=== PATIENT | female | born 1950 | race Caucasian/White ===

== ENCOUNTER 2018-01-15 08:26 | Emergency (ER) | payer MEDICARE, BC ==
[~2018-01-15] VITALS: Ht 177.8 cm; Wt 79.4 kg
[~2018-01-15 08:26] MED LIST: ALBUTEROL0.63 MG/3 HHN; ANORO ELLIPTA1 EACH INH; CLARITIN10 M2 ORAL; LEVOTHYROXINE150 MCG ORAL; LORAZEPAM2 MG ORAL; LOSARTAN POTASS25 MG ORAL; OMEPRAZOLE40 M1 ORAL; PERFOROMIS20 MCG/2 M IH; TRAZODONE HCL150 MG ORAL; TRIAMTERENE-HC1 EAC7 ORAL; VERAMYST10 GM NS
[2018-01-15 08:44] VITALS: BP 127/68
--- NOTE | 2018-01-15 09:09 | Emergency Room Report ---
History of Present Illness General Chief Complaint: Laceration Source: Patient Present Illness HPI Patient presents with complaints of pain to the right hand Patient reports that she cut the palm of the hand yesterday with a knife fall she was cutting This happened at approximately 1:00 in the morning Patient felt that the cut was too deep and presents this morning for evaluation Denies any wrist pain denies any other trauma Denies any heavy bleeding or lightheadedness Allergies: Coded Allergies: No Known Allergies (Verified , 04/13/08) Patient History Past Medical History: see triage record Pertinent Family History: none Last Menstrual Period: na Reviewed Nursing Documentation: PMH: Agreed; PSxH: Agreed Nursing Documentation-PMH Past Medical History: No History, Except For Hx Cardiac Problems: Yes Hx Hypertension: Yes Hx COPD: Yes Hx Cancer: No Hx Gastrointestinal Problems: Yes - hyst Hx Neurological Problems: No Review of Systems All Other Systems: negative except mentioned in HPI Physical Exam Vital Signs Date Time Temp Pulse Resp B/P (MAP) Pulse Ox O2 Delivery O2 Flow Rate FiO2 01/15/18 08:33 98.5 70 16 127/68 98 Room Air 98.4 Sp02 EP Interpretation: reviewed, normal General Appearance: well appearing, no apparent distress Head: normocephalic, atraumatic Eyes: bilateral eye PERRL, bilateral eye EOMI ENT: hearing grossly normal, normal pharynx Neck: full range of motion, supple Respiratory: lungs clear, normal breath sounds Cardiovascular #1: regular rate, rhythm Gastrointestinal: normal bowel sounds, non tender Musculoskeletal: other - Appropriate thumb approximation was all digits well able to flex all digits and extend able to flex the hand and extend Neurologic: alert, oriented x3, responsive - Sensory is intact Skin: other - Approximately 1 cm laceration involving the hyperthenar eminence on the right palmar aspect Lymphatic: no adenopathy Procedures Laceration/Wound Repair Laceration/Wound Repair : Consent: Verbal Wound Location: upper extremity Wound's Depth, Shape: into muscle Wound Length (cm): 1 Wound Explored: clean Irrigated w/ Saline (ccs): 200 Anesthesia: other - LET Wound Debrided: minimal Wound Repaired With: sutures Suture Size/Type: 5:0 Number of Sutures: 3 Layer Closure?: No Deep Layer Suture Size/Type: 5:0 Sterile Dressing Applied?: No Patient Tolerated: Well Complications: None Medical Decision Making Diagnostic Impression: Primary Impression: Laceration ER Course Given the patient's history and findings she was provided with tetanus shot the area was further cleansed and irrigated L ET was applied dorsally refer to the suture repair for the full specifics Given the full separation and the location 3 sutures were applied with good approximation however did not want to make the area too tightly closed as there is some delayed closure Patient provided with antibiotics here and has follow-up with her physician on Thursday Last Vital Signs Date Time Temp Pulse Resp B/P (MAP) Pulse Ox O2 Delivery O2 Flow Rate FiO2 01/15/18 08:44 98.4 70 16 127/68 98 Room Air 98.4 Status: improved Disposition: HOME, SELF-CARE Condition: Improved Scripts Cephalexin* (KEFLEX*) 500 Mg Capsule 500 MG ORAL EVERY 8 HOURS for 5 Days, CAP Prov: Gerda Raymundo DO 01/15/18 Referrals: NON PHYSICIAN (PCP) Additional Instructions: Patient is provided with the discharge instructions notified to follow up with primary doctor in the next 2-3 days otherwise return to the er with any worsening symptoms. Please note that this report is being documented using [employer] technology. This can lead to erroneous entry secondary to incorrect interpretation by the dictating instrument. Gerda Raymundo DO Jan 15, 2018 09:09
[2018-01-15] MEDS ORDERED: Tetanus/Diptheria/Pertussis Vaccine 0.5ml Syr IM ONE (09:15)
[2018-01-15] MEDS ORDERED: LET 3ml Soln TOPIC ONE (09:15)
[2018-01-15] MEDS ORDERED: Bacitracin Oint UD TOPIC ONE ×2 (09:55→10:00)
[2018-01-15] MEDS ORDERED: Cephalexin 500mg cap ORAL ONE (10:00)
[2018-01-15] MEDS ORDERED: CEPHALEXIN500 MG ORAL (10:31)
[2018-01-15 10:36] VITALS: BP 127/68
== END 2018-01-15 10:37 | disposition home or self-care (01) ==
LOC: EMR 08:45
DX: S61.411A Laceration without foreign body of right hand, initial encounter (principal); W26.0XXA Contact with knife, initial encounter; Y93.89 Activity, other specified; Y92.89 Other specified places as the place of occurrence of the external cause; I10 Essential (primary) hypertension; J44.9 Chronic obstructive pulmonary disease, unspecified; Z23 Encounter for immunization; Z86.79 Personal history of other diseases of the circulatory system
CPT/HCPCS: 90471; 90715; 99283

== ENCOUNTER 2019-04-29 23:42 | Inpatient (IN) | payer MEDICARE, BC ==
[~2019-04-29] VITALS: Ht 177.8 cm; Wt 97.1 kg
[~2019-04-29 23:42] MED LIST changes: +CEPHALEXIN500 MG ORAL
[2019-04-29 23:45] VITALS: BP 171/86
[2019-04-29] MEDS ORDERED: Solu-MEDROL 125mg Inj IVP ONE (23:45)
[2019-04-29] MEDS ORDERED: Ipratropium 0.02% Inh Soln 2.5ml UD HHN ONE (23:45)
[2019-04-29] MEDS ORDERED: Sodium Chloride 2,600 ML IVLG ONE (23:45)
[2019-04-29] MEDS ORDERED: Acetaminophen 500mg (ES) tab ORAL ONE (23:45)
[2019-04-29] MEDS ORDERED: Albuterol ud Inhalation HHN ONE (23:45)
--- NOTE | 2019-04-29 23:52 | Emergency Room Report ---
History of Present Illness General Chief Complaint: Flu Like Symptoms Source: Patient Present Illness HPI This is a 69-year-old female with history of high blood pressure and COPD. She was a former smoker. She presents with complaint of fever and cough and nausea and vomiting. Onset today. Often she says she felt very weak with high fever. Have chills. She coughed up some green phlegm. Also felt nauseous. No diarrhea. Worse with exertion. Better with rest. Denies any chest pain. [place] whole body pain. Allergies: Coded Allergies: No Known Allergies (Verified , 04/13/08) Patient History Past Medical History: see triage record, old chart reviewed, HTN, COPD Past Surgical History: other Pertinent Family History: none Social History: Denies: smoking - History of Now: No Immunizations: other Reviewed Nursing Documentation: PMH: Agreed; PSxH: Agreed Nursing Documentation-PMH Hx Cardiac Problems: Yes Hx Hypertension: Yes Hx COPD: Yes Hx Cancer: No Hx Gastrointestinal Problems: Yes - hyst Hx Neurological Problems: No Review of Systems Constitutional: Reports: chills, fever, malaise Eye: Denies: eye pain, blurred vision ENT: Denies: ear pain, nose congestion, throat swelling Respiratory: Reports: cough, shortness of breath, sputum Cardiovascular: Denies: chest pain, palpitations Gastrointestinal: Reports: nausea, vomiting; Denies: abdominal pain, diarrhea Musculoskeletal: Reports: back pain, muscle pain; Denies: joint pain Skin: Denies: rash Neurological: Denies: headache, numbness Endocrine: Denies: increased thirst, increased urine Hematologic/Lymphatic: Denies: easy bruising All Other Systems: negative except mentioned in HPI Physical Exam Vital Signs Date Time Temp Pulse Resp B/P (MAP) Pulse Ox O2 Delivery O2 Flow Rate FiO2 04/29/19 23:29 100.0 103 16 171/86 (114) 96 Room Air Vitals with fever and high blood pressure Sp02 EP Interpretation: reviewed, normal General Appearance: alert, other - Ill-appearing Head: normocephalic, atraumatic Eyes: bilateral eye PERRL, bilateral eye EOMI ENT: hearing grossly normal, normal pharynx Neck: full range of motion, supple, no meningismus Respiratory: chest non-tender, decreased breath sounds, accessory muscle use, crackles Cardiovascular #1: regular rate, rhythm, no murmur Gastrointestinal: normal bowel sounds, non tender, no mass, no organomegaly, no bruit, non-distended Musculoskeletal: back normal, normal range of motion Neurologic: motor strength/tone normal Psychiatric: mood/affect normal Procedures Critical Care Time Critical Care Time Critical care is mandated in this patient who presented with sepsis from pneumonia. Patient require my urgent intervention to attenuate the risks of metabolic collapse which may lead to cardiovascular collapse and . Critical care time is 35 minutes excluding any reportable procedure. Critical care time included evaluation, multiple reevaluation, looking at old charts, interpreting laboratory and diagnostic data, discussing case with patient and family and consultants, and charting. Medical Decision Making Diagnostic Impression: Primary Impression: Sepsis Qualified Codes: A41.9 - Sepsis, unspecified organism Additional Impressions: Community acquired bacterial pneumonia Influenza-like symptoms COPD with exacerbation ER Course Patient presents with fever and coughing. She does have a left lobe infiltrate. Even though influenza test is negative will cover with Tamiflu. No evidence of ACS, PE, dissection during review. Will admit versus transfer based on insurance. Patient felt better after breathing treatment. I discussed the case with Dr. Price who will admit. EKG Diagnostic Results Rate: normal Rhythm: NSR ST Segments: no acute changes Rhythm Strip Diag. Results EP Interpretation: yes Rate: 100 Rhythm: NSR, no PVC's, no ectopy Chest X-Ray Diagnostic Results Chest X-Ray Diagnostic Results : Chest X-Ray Ordered: Yes # of Views/Limited/Complete: 1 View Indication: Shortness of Breath EP Interpretation: Yes Interpretation: no effusion, no pneumothorax, other - PRUDENCE infiltrate Impression: Other - PRUDENCE infiltrate Electronically Signed by: Dinesh Blackburn MD Last Vital Signs Date Time Temp Pulse Resp B/P (MAP) Pulse Ox O2 Delivery O2 Flow Rate FiO2 04/29/19 23:29 100.0 103 16 171/86 (114) 96 Room Air Status: improved Disposition: ADMITTED INPATIENT Condition: Serious Dinesh Blackburn MD Apr 29, 2019 23:52
[2019-04-30 00:12] LABS: HEMATOCRIT 38.9 % (37.0-47.0); HEMOGLOBIN 12.9 G/DL (12.0-16.0); MEAN CORPUSCULAR VOLUME 78 FL (80-99); PLATELET COUNT 299 K/UL (150-450); RED BLOOD COUNT 4.98 M/UL (4.20-5.40); RED CELL DISTRIBUTION WIDTH 14.1 % (11.6-14.8)
[2019-04-30 00:15] LABS: WHITE BLOOD COUNT 22.7 K/UL (4.8-10.8)
[2019-04-30 00:26] LABS: ANION GAP 11 mmol/L (5-15); BLOOD UREA NITROGEN 29 mg/dL (7-18); CALCIUM 8.6 MG/DL (8.5-10.1); CARBON DIOXIDE 27 MMOL/L (21-32); CHLORIDE 96 MMOL/L (98-107); CREATININE 1.4 MG/DL (0.55-1.30); POTASSIUM 3.9 MMOL/L (3.5-5.1); SODIUM 134 MMOL/L (136-145)
[2019-04-30 00:31] LABS: ALANINE AMINOTRANSFERASE 30 U/L (12-78); ALBUMIN 3.2 G/DL (3.4-5.0); ALBUMIN/GLOBULIN RATIO 0.8 (1.0-2.7); ALKALINE PHOSPHATASE 90 U/L (46-116); ASPARTATE AMINO TRANSFERASE 18 U/L (15-37); BILIRUBIN,TOTAL 0.6 MG/DL (0.2-1.0)
[2019-04-30] MEDS ORDERED: Piperacillin/Tazobactam 3.375 GM in NS 110 ML IVPB ONE (00:45)
[2019-04-30] MEDS ORDERED: Oseltamivir 75mg cap ORAL ONE (01:00)
[2019-04-30 01:10] LABS: APPEARANCE,URINE CLEAR; BILIRUBIN, URINE NEGATIVE (NEGATIVE); COLOR,URINE PALE YELLOW; GLUCOSE, URINE (UA) NEGATIVE (NEGATIVE); KETONES,URINE NEGATIVE (NEGATIVE); LEUKOCYTE ESTERASE ,URINE 1+ (NEGATIVE); NITRITE,URINE NEGATIVE (NEGATIVE); PH,URINE 7 (4.5-8.0); PROTEIN,URINE 3+ (NEGATIVE); UROBILINOGEN,URINE NORMAL MG/DL (0.0-1.0)
--- NOTE | 2019-04-30 01:22 | Diagnostic Imaging Report ---
EXAM: XR Chest, 1 View CLINICAL HISTORY: SOB TECHNIQUE: Frontal view of the chest. COMPARISON: No relevant prior studies available. IMPRESSION: Increased left upper lobe opacity, possibly edema or infectious process. Normal heart size. No pleural effusion. Bibasilar atelectasis versus aspiration.
[2019-04-30] MEDS ORDERED: Albuterol ud Inhalation HHN ONE (01:30)
[2019-04-30 01:35] VITALS: BP 124/72
--- NOTE | 2019-04-30 01:43 | Emergency Room Report ---
Sepsis Event Note Evaluation Current Stage of Sepsis: Sepsis Possible Source: Pulmonary Focused Exam Allergies: Coded Allergies: No Known Allergies (Verified , 04/13/08) Date Exam Occurred: Apr 30, 2019 Time Exam Occurred: 01:42 Laboratory Studies Laboratory Tests Test 04/29/19 23:50 White Blood Count 22.7 K/UL (4.8-10.8) *H Red Blood Count 4.98 M/UL (4.20-5.40) Hemoglobin 12.9 G/DL (12.0-16.0) Hematocrit 38.9 % (37.0-47.0) Mean Corpuscular Volume 78 FL (80-99) L Mean Corpuscular Hemoglobin 25.8 PG (27.0-31.0) L Mean Corpuscular Hemoglobin Concent 33.1 G/DL (32.0-36.0) Red Cell Distribution Width 14.1 % (11.6-14.8) Platelet Count 299 K/UL (150-450) Mean Platelet Volume 4.9 FL (6.5-10.1) L Neutrophils (%) (Auto) % (45.0-75.0) Lymphocytes (%) (Auto) % (20.0-45.0) Monocytes (%) (Auto) % (1.0-10.0) Eosinophils (%) (Auto) % (0.0-3.0) Basophils (%) (Auto) % (0.0-2.0) Differential Total Cells Counted 100 Neutrophils % (Manual) 77 % (45-75) H Lymphocytes % (Manual) 12 % (20-45) L Monocytes % (Manual) 10 % (1-10) Eosinophils % (Manual) 0 % (0-3) Basophils % (Manual) 0 % (0-2) Promyelocytes % 1 % (0-0) H Band Neutrophils 0 % (0-8) Platelet Estimate Adequate Platelet Morphology Normal Urine Color Pale yellow Urine Appearance Clear Urine pH 7 (4.5-8.0) Urine Specific [place] 1.005 (1.005-1.035) Urine Protein 3+ (NEGATIVE) H Urine Glucose (UA) Negative (NEGATIVE) Urine Ketones Negative (NEGATIVE) Urine Blood 1+ (NEGATIVE) H Urine Nitrite Negative (NEGATIVE) Urine Bilirubin Negative (NEGATIVE) Urine Urobilinogen Normal MG/DL (0.0-1.0) Urine Leukocyte Esterase 1+ (NEGATIVE) H Urine RBC 0-2 /HPF (0 - 2) Urine WBC 2-4 /HPF (0 - 2) Urine Squamous Epithelial Cells Few /LPF (NONE/OCC) Urine Bacteria Few /HPF (NONE) Sodium Level 134 MMOL/L (136-145) L Potassium Level 3.9 MMOL/L (3.5-5.1) Chloride Level 96 MMOL/L (98-107) L Carbon Dioxide Level 27 MMOL/L (21-32) Anion Gap 11 mmol/L (5-15) Blood Urea Nitrogen 29 mg/dL (7-18) H Creatinine 1.4 MG/DL (0.55-1.30) H Estimat Glomerular Filtration Rate 37.2 mL/min (>60) Glucose Level 180 MG/DL (74-106) H Lactic Acid Level 1.10 mmol/L (0.4-2.0) Calcium Level 8.6 MG/DL (8.5-10.1) Total Bilirubin 0.6 MG/DL (0.2-1.0) Aspartate Amino Transf (AST/SGOT) 18 U/L (15-37) Alanine Aminotransferase (ALT/SGPT) 30 U/L (12-78) Alkaline Phosphatase 90 U/L (46-116) Troponin I 0.000 ng/mL (0.000-0.056) Total Protein 7.4 G/DL (6.4-8.2) Albumin 3.2 G/DL (3.4-5.0) L Globulin 4.2 g/dL Albumin/Globulin Ratio 0.8 (1.0-2.7) L Vital Signs Last 24 Hour Vital Signs Date Time Temp Pulse Resp B/P (MAP) Pulse Ox O2 Delivery O2 Flow Rate FiO2 04/29/19 23:58 109 20 99 Room Air 21 106 16 96 04/29/19 23:29 100.0 103 16 171/86 (114) 96 Room Air Respiratory Exam: Crackles Cardiovascular Exam: RRR, S1 Capillary Refill: Less Than 2 Seconds Peripheral Pulse: Strong Pulse Location: Radial Skin Exam: Normal Turgor Dinesh Blackburn MD Apr 30, 2019 01:43
[2019-04-30 03:04] VITALS: BP 100/64
[2019-04-30] MEDS: TraZODone 100mg tab ORAL SCH ×2 (04:24→20:42)
[2019-04-30] MEDS ORDERED: Albuterol 90mcg Inhaler 8gm INH PRN (05:30)
[2019-04-30] MEDS ORDERED: Azithromycin 250mg tab ORAL SCH (06:00)
[2019-04-30] MEDS: cefTRIAXone 1 GM in D5W 55 ML IVPB SCH (06:28)
[2019-04-30] MEDS: Albuterol ud Inhalation HHN SCH ×3 (07:00→14:55)
[2019-04-30 08:00] VITALS: BP 121/54
[2019-04-30] MEDS: Triamterene/Hctz 37.5/25 cap ORAL SCH (09:48)
[2019-04-30] MEDS: Losartan 25mg tab ORAL SCH (09:48)
[2019-04-30] MEDS: metFORMIN 500mg tab ORAL SCH ×2 (09:48→17:25)
[2019-04-30] MEDS: Heparin 5000 units/ml inj SUBQ SCH ×2 (09:50→20:48)
[2019-04-30] MEDS: Meloxicam 15 MG TAB ORAL SCH (10:48)
[2019-04-30] MEDS: QVAR 80mcg Inh - 8.7gm INH SCH (11:22)
[2019-04-30] MEDS: Flonase Nasal Inhaler 16gm NASAL SCH (11:25)
[2019-04-30 12:00] VITALS: BP 141/75
--- NOTE | 2019-04-30 12:00 | Pulmonology Progress Note ---
Assessment/Plan Assessment/Plan Pulmonary Consultation HPI Patient is a 69-year-old female with Past Medical History of Hypertension and Chronic Obstructive Pulmonary Disease. She was a former smoker. Admitted with Pneumonia, had complaints of fever and cough and nausea and vomiting, malaise, general body pain. Noted chills, cough with green phlegm. Also felt nauseous. No diarrhea. Denies any chest pain. Had whole body pain. Allergies: No Known Allergies Past Medical History: Hypertension, HHD, Chronic Obstructive Pulmonary Disease Past Surgical History: Hysterectomy Pertinent Family History: none Social History: Previous smoking history All Other Systems: negative except mentioned in HPI Physical Exam Vital Signs Noted Date Time Temp Pulse Resp B/P (MAP) Pulse Ox O2 Delivery O2 Flow Rate FiO2 04/29/19 23:29 100.0 103 16 171/86 (114) 96 Room Air General Appearance: alert, no distress Head: normocephalic, atraumatic Eyes: bilateral eye PERRL, bilateral eye EOMI ENT: hearing grossly normal, normal pharynx Neck: full range of motion, supple, no meningismus Respiratory: chest non-tender, decreased breath sounds, occasional rhonchi, few crackles Cardiovascular: regular rate, rhythm, no murmur, HS1, HS2, RRR Gastrointestinal: normal bowel sounds, non tender, no mass, no organomegaly, softt, non-distended Musculoskeletal: normal strength, no wasting Neurologic: motor strength/tone normal Psychiatric: mood/affect normal Impression: Pneumonia Sepsis Influenza-like symptoms Chronic Obstructive Pulmonary Disease with exacerbation Mild hyponatremia Hypertension, HHD Plan - IV Antibiotics - HHN - O2 PRN - Solumedrol - PPX - Monitor Labs - SUPERINTENDENT PIPELINES Medications - Await cultures EKG: Rate: normal Rhythm: NSR ST Segments: no acute changes Chest X-Ray: no effusion, no pneumothorax, other - PRUDENCE infiltrate, bibasal atelectasis Subjective ROS Limited/Unobtainable: No Allergies: Coded Allergies: No Known Allergies (Verified , 04/13/08) Objective Last 24 Hour Vital Signs Date Time Temp Pulse Resp B/P (MAP) Pulse Ox O2 Delivery O2 Flow Rate FiO2 04/30/19 11:34 90 20 94 Nasal Cannula 2.0 95 04/30/19 11:34 94 22 94 Nasal Cannula 2.0 28 04/30/19 11:31 96 20 100 Nasal Cannula 2.0 28 90 18 95 1/4/20 11:29 90 18 95 Nasal Cannula 2.0 28 04/30/19 09:48 121/54 04/30/19 09:00 Nasal Cannula 2.0 04/30/19 08:00 98.2 85 20 121/54 (76) 98 04/30/19 08:00 86 04/30/19 05:11 Nasal Cannula 3.0 04/30/19 04:00 91 04/30/19 03:04 98.2 100 22 100/64 (76) 95 04/30/19 03:04 100 04/30/19 02:45 99.4 78 18 124/72 95 Nasal Cannula 2.0 21 04/30/19 01:45 101 20 100 Nasal Cannula 4.0 36 102 20 98 04/30/19 01:35 99.4 78 18 124/72 95 Nasal Cannula 2.0 04/30/19 00:39 99.1 04/29/19 23:58 109 20 99 Room Air 21 106 16 96 04/29/19 23:45 103 16 Room Air 04/29/19 23:45 100.0 98 16 171/86 96 Room Air 04/29/19 23:29 100.0 103 16 171/86 (114) 96 Room Air Intake and Output 04/29/19 04/30/19 19:00 07:00 Intake Total 200 ml Balance 200 ml Intake Oral 200 ml # Voids 1 Microbiology Date/Time Source Procedure Growth Status 04/29/19 23:50 Nasal Nares - Final Complete 04/29/19 23:50 Nasal Nares - Final Complete Laboratory Tests 04/29/19 23:50: White Blood Count 22.7*H, Red Blood Count 4.98, Hemoglobin 12.9, Hematocrit 38.9 , Mean Corpuscular Volume 78L, Mean Corpuscular Hemoglobin 25.8L, Mean Corpuscular Hemoglobin Concent 33.1, Red Cell Distribution Width 14.1, Platelet Count 299, Mean Platelet Volume 4.9L, Neutrophils (%) (Auto) , Lymphocytes (%) ( Auto) , Monocytes (%) (Auto) , Eosinophils (%) (Auto) , Basophils (%) (Auto) , Differential Total Cells Counted 100, Neutrophils % (Manual) 77H, Lymphocytes % (Manual) 12L, Monocytes % (Manual) 10, Eosinophils % (Manual) 0, Basophils % ( Manual) 0, Promyelocytes % 1H, Band Neutrophils 0, Platelet Estimate Adequate, Platelet Morphology Normal, Urine Color Pale yellow, Urine Appearance Clear, Urine pH 7, Urine Specific [place] 1.005, Urine Protein 3+H, Urine Glucose (UA) Negative, Urine Ketones Negative, Urine Blood 1+H, Urine Nitrite Negative, Urine Bilirubin Negative, Urine Urobilinogen Normal, Urine Leukocyte Esterase 1+ H, Urine RBC 0-2, Urine WBC 2-4, Urine Squamous Epithelial Cells Few, Urine Bacteria Few, Sodium Level 134L, Potassium Level 3.9, Chloride Level 96L, Carbon Dioxide Level 27, Anion Gap 11, Blood Urea Nitrogen 29H, Creatinine 1.4H , Estimat Glomerular Filtration Rate 37.2, Glucose Level 180H, Lactic Acid Level 1.10, Calcium Level 8.6, Total Bilirubin 0.6, Aspartate Amino Transf (AST/ SGOT) 18, Alanine Aminotransferase (ALT/SGPT) 30, Alkaline Phosphatase 90, Troponin I 0.000, Total Protein 7.4, Albumin 3.2L, Globulin 4.2, Albumin/ Globulin Ratio 0.8L Current Medications Medications (Trade) Dose Ordered Sig/[place] Route PRN Reason Start Time Stop Time Status Last Admin Dose Admin Albuterol Sulfate (Proventil MDI) 1 puff Q4H PRN INH SHORTNESS OF BREATH 04/30/19 05:30 05/30/19 05:29 Albuterol Sulfate (Proventil) 1.25 mg Q4HRT HHN 04/30/19 07:00 05/05/19 06:59 04/30/19 11:28 Azithromycin (Zithromax) 250 mg DAILY ORAL 05/01/19 09:00 05/04/19 09:01 Beclomethasone Dipropionate (Qvar 80) 2 puff TWICE A DAY INH 04/30/19 09:00 05/30/19 08:59 04/30/19 11:22 Ceftriaxone Sodium 1 gm/ Dextrose 55 ml @ 110 mls/hr Q24H IVPB 04/30/19 06:00 05/07/19 05:59 04/30/19 06:28 Fluticasone Propionate (Flonase) 1 spray TWICE A DAY NASAL 04/30/19 09:00 05/30/19 08:59 04/30/19 11:25 Heparin Sodium (Porcine) (Heparin 5000 units/ml) 5,000 units EVERY 12 HOURS SUBQ 04/30/19 09:00 05/30/19 08:59 04/30/19 09:50 Levothyroxine Sodium (Synthroid) 150 mcg DAILY@0630 ORAL 04/30/19 06:30 05/30/19 06:29 04/30/19 06:29 Losartan Potassium (Cozaar) 25 mg DAILY ORAL 04/30/19 09:00 05/30/19 08:59 04/30/19 09:48 Meloxicam (Mobic) 15 mg DAILY ORAL 04/30/19 09:00 05/30/19 08:59 04/30/19 10:48 Metformin HCl (Glucophage) 500 mg BIDPC ORAL 04/30/19 09:00 05/30/19 08:59 04/30/19 09:48 Mirtazapine (Remeron) 30 mg BEDTIME ORAL 04/30/19 03:45 05/30/19 03:44 04/30/19 04:23 Non-Formulary Medication (Non-Formulary Med) 1 ea DAILY ORAL 04/30/19 09:00 05/30/19 08:59 UNV Non-Formulary Medication (Non-Formulary Med) 1 ea DAILY ORAL 04/30/19 09:00 05/30/19 08:59 UNV Non-Formulary Medication (Non-Formulary Med) 1 ea DAILY ORAL 04/30/19 09:00 05/30/19 08:59 UNV Non-Formulary Medication (Non-Formulary Med) 1 ea DAILY ORAL 04/30/19 09:00 05/30/19 08:59 UNV Non-Formulary Medication (Non-Formulary Med) 1 ea DAILY ORAL 04/30/19 09:00 05/30/19 08:59 UNV Non-Formulary Medication (Non-Formulary Med) 1 ea DAILY ORAL 04/30/19 09:00 05/30/19 08:59 UNV Non-Formulary Medication (Non-Formulary Med) 1 ea DAILY ORAL 04/30/19 09:00 05/30/19 08:59 UNV Non-Formulary Medication (Non-Formulary Med) 1 ea DAILY ORAL 04/30/19 09:00 05/30/19 08:59 UNV Non-Formulary Medication (Non-Formulary Med) 1 ea DAILY ORAL 04/30/19 09:00 05/30/19 08:59 UNV Non-Formulary Medication (Non-Formulary Med) 1 ea DAILY ORAL 04/30/19 09:00 05/30/19 08:59 UNV Pantoprazole (Protonix) 40 mg DAILY ORAL 04/30/19 09:00 05/30/19 08:59 04/30/19 09:48 Trazodone HCl (Desyrel) 600 mg BEDTIME ORAL 04/30/19 03:45 05/30/19 03:44 04/30/19 04:24 Triamterene/HCTZ (Dyazide) 1 cap DAILY ORAL 04/30/19 09:00 05/30/19 08:59 04/30/19 09:48 Darvin Austin MD Apr 30, 2019 12:00
[2019-04-30] MEDS ORDERED: Acetaminophen 650 MG SUPP RECTAL PRN (12:45)
[2019-04-30] MEDS ORDERED: Milk of Magnesia 30ml Ud ORAL PRN (12:45)
[2019-04-30] MEDS: Solu-MEDROL 40mg Inj IVP SCH ×2 (15:40→20:44)
[2019-04-30 16:00] VITALS: BP 105/60
[2019-04-30 20:00] VITALS: BP 129/68
[2019-04-30] MEDS: Albuterol/Ipratropium 3ml neb HHN SCH (21:11)
--- NOTE | 2019-04-30 23:15 | History and Physical Report ---
DATE OF ADMISSION: 04/29/2019 CHIEF COMPLAINT/REASON FOR HOSPITALIZATION: The patient is a 69-year-old lady, admitted with cough, shortness of breath, and left upper lobe infiltrate. HISTORY OF PRESENT ILLNESS: The patient has a history of hypertension and COPD, admitted with persistent cough for several days, nonproductive; weakness; dyspnea on exertion; also noted has some urinary incontinence associated with coughing which is new in onset. The patient is a former smoker, quit 8 or 9 years ago. She uses inhalers at home. ALLERGIES: None known. HOME MEDICATIONS: 1. Albuterol inhalation p.r.n. 2. Keflex 500 mg q.i.d. 3. Formoterol inhalation p.r.n. 4. Levothyroxine 150 mcg daily. 5. Lorazepam 2 mg at bedtime. 6. Losartan 25 mg daily. 7. Omeprazole 40 mg daily. 8. Trazodone 150 mg at bedtime. 9. Triamterene hydrochlorothiazide 1 daily. 10. Anoro Ellipta inhaler daily. HABITS: She is a former smoker. No alcohol or drugs. PAST SURGICAL HISTORY: 1. Left total hip replacement. 2. Ankle fracture. 3. Cataracts. SYSTEM REVIEW: HEAD, EYES, EARS, NOSE, AND THROAT: Vision is not good. Hearing is good. ENDOCRINE: History of hypothyroidism, on replacement. No known diabetes. PULMONARY: See above. CARDIAC: No definite angina or [place]. There is some chest tightness associated with her cough and shortness of breath. GASTROINTESTINAL: No gastrointestinal bleeding or ulcers. There is some assisted with the current illness. GENITOURINARY: New onset of incontinence as above. No dysuria. NEUROLOGIC: No CVA, syncope, or seizures. MUSCULOSKELETAL: History of some generalized joint pain. PHYSICAL EXAMINATION: GENERAL: The patient is an alert lady, in no acute distress. BMI 30.7. VITAL SIGNS: Temperature 97.6, pulse 91, respirations 20, and blood pressure 141/75. HEAD EYES, EARS, NOSE, AND THROAT: Sclerae are nonicteric. Ocular motions intact in all directions. Oral mucosa slightly dry. NECK: No adenopathy or thyroid enlargement. LUNGS: Distant breath sounds. Few faint rhonchi. HEART: Rhythm is regular. I hear no murmur. ABDOMEN: Soft without organomegaly or masses. EXTREMITIES: No edema, cyanosis, or clubbing. NEUROLOGIC: She is alert and oriented. Cranial nerves are intact. SKIN: No rashes. PERTINENT LABORATORY DATA: Shows a white count of 22.7, hemoglobin 12.9, and MCV is 78. Sodium 134, potassium 3.9, creatinine 1.4, and glucose 180. Troponin 0. Urinalysis shows 0 to 2 red cells and 2 to 4 white cells per high-power field. The influenza rapid test is negative. IMPRESSION: 1. Pneumonia, left upper lobe. Note that the patient has had Pneumovax and Prevnar 13 prior to this. 2. COPD with exacerbation. 3. Elevated glucose. 4. Urinary incontinence. 5. Hypertension. 6. Osteoarthritis. PLAN: The patient will be given empiric therapy for pneumonia with empiric antibiotics. Nebulizer treatments. For comfort measures, she was given a dose of steroid as well in the emergency room. We will observe her response to these measures. Await for cultures. Thank you so much. Greg Price M.D. DR: MELINDA JOB#: [id number] CC:
[2019-05-01] VITALS: BP 110/60
[2019-05-01] MEDS: Albuterol/Ipratropium 3ml neb HHN SCH ×7 (00:43→23:10)
[2019-05-01] MEDS: QVAR 80mcg Inh - 8.7gm INH SCH ×3 (00:49→21:47)
[2019-05-01] MEDS: Flonase Nasal Inhaler 16gm NASAL SCH ×3 (00:51→23:06)
[2019-05-01 04:00] VITALS: BP 127/63
[2019-05-01] MEDS: cefTRIAXone 1 GM in D5W 55 ML IVPB SCH (05:03)
[2019-05-01] MEDS: Azithromycin 500 MG in D5W 275 ML IV SCH (05:41)
[2019-05-01 08:00] VITALS: BP 147/72
[2019-05-01] MEDS: Solu-MEDROL 40mg Inj IVP SCH (08:08)
[2019-05-01] MEDS: Losartan 25mg tab ORAL SCH (08:09)
[2019-05-01] MEDS: Meloxicam 15 MG TAB ORAL SCH (08:09)
[2019-05-01] MEDS: metFORMIN 500mg tab ORAL SCH ×2 (08:09→17:17)
[2019-05-01] MEDS: Triamterene/Hctz 37.5/25 cap ORAL SCH (08:09)
[2019-05-01] MEDS: Heparin 5000 units/ml inj SUBQ SCH ×2 (08:10→21:01)
[2019-05-01 08:57] LABS: HEMATOCRIT 35.3 % (37.0-47.0); HEMOGLOBIN 11.7 G/DL (12.0-16.0); MEAN CORPUSCULAR VOLUME 80 FL (80-99); PLATELET COUNT 243 K/UL (150-450); RED BLOOD COUNT 4.41 M/UL (4.20-5.40); RED CELL DISTRIBUTION WIDTH 14.1 % (11.6-14.8); WHITE BLOOD COUNT 20.8 K/UL (4.8-10.8)
[2019-05-01] MEDS ORDERED: Azithromycin 250mg tab ORAL SCH (09:00)
[2019-05-01 09:42] LABS: ANION GAP 11 mmol/L (5-15); BLOOD UREA NITROGEN 37 mg/dL (7-18); CALCIUM 8.2 MG/DL (8.5-10.1); CARBON DIOXIDE 24 MMOL/L (21-32); CHLORIDE 98 MMOL/L (98-107); CREATININE 1.8 MG/DL (0.55-1.30); POTASSIUM 3.7 MMOL/L (3.5-5.1); SODIUM 133 MMOL/L (136-145)
--- NOTE | 2019-05-01 09:57 | General Progress Note ---
Assessment/Plan Problem List: (1) Diabetes ICD Codes: E11.9 - Type 2 diabetes mellitus without complications SNOMED: 15337131 (2) COPD (chronic obstructive pulmonary disease) ICD Codes: J44.9 - Chronic obstructive pulmonary disease, unspecified SNOMED: 70429916 (3) Community acquired bacterial pneumonia ICD Codes: J15.9 - Unspecified bacterial pneumonia SNOMED: 938963744, 30977683 (4) Hypertension ICD Codes: I10 - Essential (primary) hypertension SNOMED: 22729909 Assessment/Plan: diabetes from steroids, ss insulin, reduce steroids, continue antibiotics and hhn Subjective Constitutional: Reports: weakness HEENT: Reports: no symptoms Cardiovascular: Reports: no symptoms Respiratory: Reports: cough, shortness of breath, SOB with excertion, wheezing Gastrointestinal/Abdominal: Reports: no symptoms Genitourinary: Reports: incontinence Neurologic/Psychiatric: Reports: weakness Endocrine: Reports: no symptoms Hematologic/Lymphatic: Reports: no symptoms Allergies: Coded Allergies: No Known Allergies (Verified , 04/13/08) Objective Last 24 Hour Vital Signs Date Time Temp Pulse Resp B/P (MAP) Pulse Ox O2 Delivery O2 Flow Rate FiO2 05/01/19 09:22 84 20 95 Nasal Cannula 2.0 28 05/01/19 09:20 84 20 95 Nasal Cannula 2.0 05/01/19 08:09 127/63 05/01/19 08:00 97.7 68 20 147/72 (97) 99 05/01/19 04:00 97.6 90 20 127/63 (84) 97 05/01/19 04:00 94 05/01/19 02:59 86 18 98 Nasal Cannula 2.0 87 18 96 05/01/19 00:51 87 20 95 Nasal Cannula 2.0 05/01/19 00:51 87 20 95 Nasal Cannula 2.0 28 05/01/19 00:43 87 18 96 Nasal Cannula 2.0 28 84 18 96 05/01/19 00:00 97.5 94 20 110/60 (77) 96 05/01/19 00:00 87 05/01/19 00:00 04/30/19 20:27 92 18 96 Nasal Cannula 2.0 28 88 18 95 04/30/19 20:27 88 18 95 Nasal Cannula 2.0 28 04/30/19 20:00 99 04/30/19 20:00 Nasal Cannula 2.0 04/30/19 20:00 98.1 92 20 129/68 (88) 94 04/30/19 16:00 97.3 97 20 105/60 (75) 95 04/30/19 16:00 94 04/30/19 14:55 91 18 97 Nasal Cannula 2.0 28 87 16 93 04/30/19 12:00 91 04/30/19 12:00 97.6 91 20 141/75 (97) 97 04/30/19 11:34 90 20 94 Nasal Cannula 2.0 95 04/30/19 11:34 94 22 94 Nasal Cannula 2.0 28 04/30/19 11:31 96 20 100 Nasal Cannula 2.0 28 90 18 95 Intake and Output 04/30/19 05/01/19 19:00 07:00 Intake Total 330 ml Balance 330 ml IV Total 330 ml # Voids 2 4 Laboratory Tests 05/01/19 07:57: White Blood Count 20.8H, Red Blood Count 4.41, Hemoglobin 11.7L, Hematocrit 35.3L, Mean Corpuscular Volume 80, Mean Corpuscular Hemoglobin 26.6L, Mean Corpuscular Hemoglobin Concent 33.2, Red Cell Distribution Width 14.1, Platelet Count 243, Mean Platelet Volume 4.8L, Neutrophils (%) (Auto) , Lymphocytes (%) ( Auto) , Monocytes (%) (Auto) , Eosinophils (%) (Auto) , Basophils (%) (Auto) , Differential Total Cells Counted 100, Neutrophils % (Manual) 90H, Lymphocytes % (Manual) 3L, Monocytes % (Manual) 7, Eosinophils % (Manual) 0, Basophils % ( Manual) 0, Band Neutrophils 0, Platelet Estimate Adequate, Platelet Morphology Normal, Red Blood Cell Morphology Normal 05/01/19 08:32: Sodium Level 133L, Potassium Level 3.7, Chloride Level 98, Carbon Dioxide Level 24, Anion Gap 11, Blood Urea Nitrogen 37H, Creatinine 1.8H, Estimat Glomerular Filtration Rate 27.8, Glucose Level 391#H, Calcium Level 8.2L Height (Feet): 5 Height (Inches): 10.00 Weight (Pounds): 214 General Appearance: alert, obese EENT: normal ENT inspection Neck: non-tender, normal alignment Cardiovascular: normal rate, regular rhythm Respiratory/Chest: rhonchi - bilaterally Abdomen: non tender, soft Edema: no edema noted Arm (L), no edema noted Arm (R), no edema noted Leg (L), no edema noted Leg (R), no edema noted Pedal (L), no edema noted Pedal (R), no edema noted 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
[2019-05-01] MEDS ORDERED: Guaifenesin/DM 10ml syrup ORAL PRN (10:00)
[2019-05-01 12:00] VITALS: BP 123/65
[2019-05-01] MEDS: NovoLOG Insulin Flexpen SUBQ SCH ×2 (12:28→17:18)
[2019-05-01] MEDS: Benzonatate 100mg Perles ORAL SCH ×2 (12:28→17:17)
[2019-05-01 16:00] VITALS: BP 131/77
--- NOTE | 2019-05-01 19:55 | Pulmonology Progress Note ---
Assessment/Plan Assessment/Plan Pulmonary Progress Note HPI Patient is a 69-year-old female with Past Medical History of Hypertension and Chronic Obstructive Pulmonary Disease. She was a former smoker. Admitted with Pneumonia, had complaints of fever and cough and nausea and vomiting, malaise, general body pain. Noted chills, cough with green phlegm. Also felt nauseous. No diarrhea. Denies any chest pain. Had whole body pain. Cough and SOB improving Allergies: No Known Allergies Past Medical History: Hypertension, HHD, Chronic Obstructive Pulmonary Disease Past Surgical History: Hysterectomy Pertinent Family History: none Social History: Previous smoking history All Other Systems: negative except mentioned in HPI Physical Exam Vital Signs Noted General Appearance: alert, no distress Head: normocephalic, atraumatic Eyes: bilateral eye PERRL, bilateral eye EOMI ENT: hearing grossly normal, normal pharynx Neck: full range of motion, supple, no meningismus Respiratory: chest non-tender, decreased breath sounds, occasional rhonchi, few crackles Cardiovascular: regular rate, rhythm, no murmur, HS1, HS2, RRR Gastrointestinal: normal bowel sounds, non tender, no mass, no organomegaly, softt, non-distended Musculoskeletal: normal strength, no wasting Neurologic: motor strength/tone normal Psychiatric: mood/affect normal Impression: Pneumonia Sepsis Influenza-like symptoms Chronic Obstructive Pulmonary Disease with exacerbation Mild hyponatremia Hypertension, HHD Plan - IV Antibiotics - HHN - O2 PRN - Solumedrol - PPX - Monitor 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 EKG: Rate: normal Rhythm: NSR ST Segments: no acute changes Chest X-Ray: no effusion, no pneumothorax, other - PRUDENCE infiltrate, bibasal atelectasis Subjective ROS Limited/Unobtainable: No Allergies: Coded Allergies: No Known Allergies (Verified , 04/13/08) Objective Last 24 Hour Vital Signs Date Time Temp Pulse Resp B/P (MAP) Pulse Ox O2 Delivery O2 Flow Rate FiO2 05/01/19 16:00 85 05/01/19 16:00 97.6 81 20 131/77 (95) 96 05/01/19 15:40 90 20 98 Nasal Cannula 2.0 28 95 18 93 05/01/19 12:00 79.7 92 20 123/65 (84) 96 05/01/19 12:00 100 1/5/20 11:52 81 18 98 Nasal Cannula 2.0 28 83 18 98 05/01/19 09:22 84 20 95 Nasal Cannula 2.0 28 05/01/19 09:20 84 20 95 Nasal Cannula 2.0 05/01/19 09:00 Nasal Cannula 2.0 05/01/19 08:09 127/63 05/01/19 08:00 84 05/01/19 08:00 97.7 68 20 147/72 (97) 99 05/01/19 04:00 97.6 90 20 127/63 (84) 97 05/01/19 04:00 94 05/01/19 02:59 86 18 98 Nasal Cannula 2.0 28 87 18 96 05/01/19 00:51 87 20 95 Nasal Cannula 2.0 05/01/19 00:51 87 20 95 Nasal Cannula 2.0 28 05/01/19 00:43 87 18 96 Nasal Cannula 2.0 28 84 18 96 05/01/19 00:00 97.5 94 20 110/60 (77) 96 05/01/19 00:00 87 05/01/19 00:00 04/30/19 20:27 92 18 96 Nasal Cannula 2.0 28 88 18 95 04/30/19 20:27 88 18 95 Nasal Cannula 2.0 28 04/30/19 20:00 99 04/30/19 20:00 Nasal Cannula 2.0 04/30/19 20:00 98.1 92 20 129/68 (88) 94 Intake and Output 04/30/19 05/01/19 19:00 07:00 Intake Total 330 ml Balance 330 ml IV Total 330 ml # Voids 2 4 Microbiology Date/Time Source Procedure Growth Status 04/29/19 23:50 Blood Blood Culture - Preliminary NO GROWTH AFTER 24 HOURS Resulted 04/29/19 23:35 Blood Blood Culture - Preliminary NO GROWTH AFTER 24 HOURS Resulted 04/29/19 23:50 Nasal Nares - Final Complete 04/29/19 23:50 Nasal Nares - Final Complete Laboratory Tests 05/01/19 07:57: White Blood Count 20.8H, Red Blood Count 4.41, Hemoglobin 11.7L, Hematocrit 35.3L, Mean Corpuscular Volume 80, Mean Corpuscular Hemoglobin 26.6L, Mean Corpuscular Hemoglobin Concent 33.2, Red Cell Distribution Width 14.1, Platelet Count 243, Mean Platelet Volume 4.8L, Neutrophils (%) (Auto) , Lymphocytes (%) ( Auto) , Monocytes (%) (Auto) , Eosinophils (%) (Auto) , Basophils (%) (Auto) , Differential Total Cells Counted 100, Neutrophils % (Manual) 90H, Lymphocytes % (Manual) 3L, Monocytes % (Manual) 7, Eosinophils % (Manual) 0, Basophils % ( Manual) 0, Band Neutrophils 0, Platelet Estimate Adequate, Platelet Morphology Normal, Red Blood Cell Morphology Normal 05/01/19 08:32: Sodium Level 133L, Potassium Level 3.7, Chloride Level 98, Carbon Dioxide Level 24, Anion Gap 11, Blood Urea Nitrogen 37H, Creatinine 1.8H, Estimat Glomerular Filtration Rate 27.8, Glucose Level 391#H, Calcium Level 8.2L Current Medications Medications (Trade) Dose Ordered Sig/Wesley Route PRN Reason Start Time Stop Time Status Last Admin Dose Admin Acetaminophen (Tylenol) 650 mg Q4H PRN ORAL Mild Pain/Temp > 100.5 04/30/19 12:45 05/30/19 12:44 Acetaminophen (Tylenol) 650 mg Q4H PRN RECTAL Mild Pain/Temp > 100.5 04/30/19 12:45 05/30/19 12:44 Al Hydroxide/Mg Hydroxide (Mylanta) 30 ml Q2H PRN ORAL HEARTBURN 04/30/19 14:45 05/30/19 14:44 04/30/19 14:50 Albuterol Sulfate (Proventil MDI) 1 puff Q4H PRN INH SHORTNESS OF BREATH 04/30/19 05:30 05/30/19 05:29 Albuterol/ Ipratropium (Albuterol/ Ipratropium) 3 ml Q4HRT HHN 04/30/19 19:00 05/05/19 18:59 05/01/19 15:40 Azithromycin 500 mg/Dextrose 275 ml @ 275 mls/hr Q24HRS IV 05/01/19 06:00 05/07/19 06:59 05/01/19 05:41 Beclomethasone Dipropionate (Qvar 80) 2 puff TWICE A DAY INH 04/30/19 09:00 05/30/19 08:59 05/01/19 09:20 Benzonatate (Tessalon Perles) 200 mg THREE TIMES A DAY ORAL 05/01/19 13:00 05/31/19 12:59 05/01/19 17:17 Ceftriaxone Sodium 1 gm/ Dextrose 55 ml @ 110 mls/hr Q24H IVPB 04/30/19 06:00 05/07/19 05:59 05/01/19 05:03 Dextrose (Dextrose 50%) 25 ml Q30M PRN IV Hypoglycemia 05/01/19 10:00 05/31/19 09:59 Dextrose (Dextrose 50%) 50 ml Q30M PRN IV Hypoglycemia 05/01/19 10:00 05/31/19 09:59 Fluticasone Propionate (Flonase) 1 spray TWICE A DAY NASAL 04/30/19 09:00 05/30/19 08:59 05/01/19 00:51 Guaifenesin/ Dextromethorphan (Robitussin DM Syrup) 10 ml Q4H PRN ORAL For Cough 05/01/19 10:00 05/31/19 09:59 Heparin Sodium (Porcine) (Heparin 5000 units/ml) 5,000 units EVERY 12 HOURS SUBQ 04/30/19 09:00 05/30/19 08:59 05/01/19 08:10 Insulin Aspart (NovoLOG) TIAC SUBQ 05/01/19 11:30 05/31/19 11:29 05/01/19 17:18 Levothyroxine Sodium (Synthroid) 150 mcg DAILY@0630 ORAL 04/30/19 06:30 05/30/19 06:29 05/01/19 05:44 Losartan Potassium (Cozaar) 25 mg DAILY ORAL 04/30/19 09:00 05/30/19 08:59 05/01/19 08:09 Magnesium Hydroxide (Mom) 30 ml DAILYPRN PRN ORAL Constipation 04/30/19 12:45 05/30/19 12:44 04/30/19 20:49 Meloxicam (Mobic) 15 mg DAILY ORAL 04/30/19 09:00 05/30/19 08:59 05/01/19 08:09 Metformin HCl (Glucophage) 500 mg BIDPC ORAL 04/30/19 09:00 05/30/19 08:59 05/01/19 17:17 Methylprednisolone Sodium Succinate (Solu-MEDROL) 20 mg DAILY IVP 05/02/19 09:00 06/01/19 08:59 Mirtazapine (Remeron) 30 mg BEDTIME ORAL 04/30/19 03:45 05/30/19 03:44 04/30/19 20:39 Non-Formulary Medication (Non-Formulary Med) 1 ea DAILY ORAL 04/30/19 09:00 05/30/19 08:59 UNV Non-Formulary Medication (Non-Formulary Med) 1 ea DAILY ORAL 04/30/19 09:00 05/30/19 08:59 UNV Non-Formulary Medication (Non-Formulary Med) 1 ea DAILY ORAL 04/30/19 09:00 05/30/19 08:59 UNV Non-Formulary Medication (Non-Formulary Med) 1 ea DAILY ORAL 04/30/19 09:00 05/30/19 08:59 UNV Non-Formulary Medication (Non-Formulary Med) 1 ea DAILY ORAL 04/30/19 09:00 05/30/19 08:59 UNV Non-Formulary Medication (Non-Formulary Med) 1 ea DAILY ORAL 04/30/19 09:00 05/30/19 08:59 UNV Non-Formulary Medication (Non-Formulary Med) 1 ea DAILY ORAL 04/30/19 09:00 05/30/19 08:59 UNV Non-Formulary Medication (Non-Formulary Med) 1 ea DAILY ORAL 04/30/19 09:00 05/30/19 08:59 UNV Non-Formulary Medication (Non-Formulary Med) 1 ea DAILY ORAL 04/30/19 09:00 05/30/19 08:59 UNV Pantoprazole (Protonix) 40 mg DAILY ORAL 04/30/19 09:00 05/30/19 08:59 05/01/19 08:09 Trazodone HCl (Desyrel) 600 mg BEDTIME ORAL 04/30/19 03:45 05/30/19 03:44 04/30/19 20:42 Darvin Austin MD May 01, 2019 19:55
[2019-05-01 20:00] VITALS: BP 126/61
[2019-05-01] MEDS: TraZODone 100mg tab ORAL SCH (21:00)
[2019-05-02] VITALS: BP 127/62
[2019-05-02] MEDS: Albuterol/Ipratropium 3ml neb HHN SCH ×6 (03:40→22:56)
[2019-05-02 04:00] VITALS: BP 126/80
[2019-05-02] MEDS: Azithromycin 500 MG in D5W 275 ML IV SCH (05:47)
[2019-05-02] MEDS: NovoLOG Insulin Flexpen SUBQ SCH ×3 (05:54→17:36)
[2019-05-02] MEDS: cefTRIAXone 1 GM in D5W 55 ML IVPB SCH (07:05)
[2019-05-02 07:36] LABS: BASOPHILS % (AUTO) 0.3 % (0.0-2.0); HEMATOCRIT 33.7 % (37.0-47.0); HEMOGLOBIN 11.3 G/DL (12.0-16.0); LYMPHOCYTES % (AUTO) 9.8 % (20.0-45.0); MEAN CORPUSCULAR VOLUME 79 FL (80-99); MONOCYTES % (AUTO) 6.8 % (1.0-10.0); NEUTROPHILS % (AUTO) 83.1 % (45.0-75.0); PLATELET COUNT 279 K/UL (150-450); RED BLOOD COUNT 4.27 M/UL (4.20-5.40); WHITE BLOOD COUNT 16.6 K/UL (4.8-10.8)
[2019-05-02 07:42] LABS: ANION GAP 8 mmol/L (5-15); BLOOD UREA NITROGEN 39 mg/dL (7-18); CALCIUM 8.2 MG/DL (8.5-10.1); CARBON DIOXIDE 26 MMOL/L (21-32); CHLORIDE 99 MMOL/L (98-107); CREATININE 1.5 MG/DL (0.55-1.30); SODIUM 133 MMOL/L (136-145)
[2019-05-02 08:00] VITALS: BP 116/66
[2019-05-02] MEDS ORDERED: Solu-MEDROL 40mg Inj IVP SCH ×3 (09:00→18:00)
[2019-05-02] MEDS: Losartan 25mg tab ORAL SCH (09:18)
[2019-05-02] MEDS: Meloxicam 15 MG TAB ORAL SCH (09:19)
[2019-05-02] MEDS: metFORMIN 500mg tab ORAL SCH ×2 (09:19→17:30)
[2019-05-02] MEDS: Benzonatate 100mg Perles ORAL SCH ×3 (09:19→17:31)
[2019-05-02] MEDS: Heparin 5000 units/ml inj SUBQ SCH ×2 (09:20→20:32)
[2019-05-02] MEDS: QVAR 80mcg Inh - 8.7gm INH SCH ×2 (09:29→19:50)
[2019-05-02] MEDS: Flonase Nasal Inhaler 16gm NASAL SCH ×2 (10:09→17:31)
[2019-05-02 12:00] VITALS: BP 148/84
[2019-05-02 16:00] VITALS: BP 152/87
--- NOTE | 2019-05-02 17:23 | General Progress Note ---
Assessment/Plan Problem List: (1) Diabetes ICD Codes: E11.9 - Type 2 diabetes mellitus without complications SNOMED: 04094075 (2) COPD (chronic obstructive pulmonary disease) ICD Codes: J44.9 - Chronic obstructive pulmonary disease, unspecified SNOMED: 54564778 (3) Community acquired bacterial pneumonia ICD Codes: J15.9 - Unspecified bacterial pneumonia SNOMED: 151119758, 88050984 (4) Hypertension ICD Codes: I10 - Essential (primary) hypertension SNOMED: 75979905 Assessment/Plan: diabetes from steroids, ss insulin, reduce steroids, continue antibiotics and hhn increase losartan for bp Subjective Constitutional: Reports: weakness HEENT: Reports: no symptoms Cardiovascular: Reports: no symptoms Respiratory: Reports: cough, SOB with excertion Gastrointestinal/Abdominal: Reports: no symptoms Genitourinary: Reports: no symptoms Neurologic/Psychiatric: Reports: no symptoms Endocrine: Reports: no symptoms Hematologic/Lymphatic: Reports: no symptoms Allergies: Coded Allergies: No Known Allergies (Verified , 04/13/08) Objective Last 24 Hour Vital Signs Date Time Temp Pulse Resp B/P (MAP) Pulse Ox O2 Delivery O2 Flow Rate FiO2 05/02/19 16:00 98.8 96 20 152/87 (108) 98 05/02/19 16:00 88 05/02/19 15:35 79 18 99 Nasal Cannula 2.0 28 77 16 98 05/02/19 12:00 98.1 85 20 148/84 (105) 98 05/02/19 12:00 90 05/02/19 11:21 81 18 99 Room Air 21 82 16 98 05/02/19 09:29 83 18 96 Nasal Cannula 2.0 28 05/02/19 09:29 80 18 96 Nasal Cannula 2.0 05/02/19 09:18 116/66 05/02/19 09:00 Nasal Cannula 2.0 Nasal Cannula 2.0 05/02/19 08:00 100 05/02/19 08:00 98.2 93 20 116/66 (83) 97 05/02/19 07:10 75 18 100 Room Air 21 80 17 98 05/02/19 04:00 97.4 84 18 126/80 (95) 97 05/02/19 04:00 78 05/02/19 03:34 76 20 100 Nasal Cannula 2.0 28 74 18 98 05/02/19 00:00 98.4 84 18 127/62 (83) 96 05/02/19 00:00 87 05/01/19 23:10 76 20 98 Nasal Cannula 2.0 28 72 18 94 05/01/19 21:47 87 20 95 Nasal Cannula 2.0 28 05/01/19 21:47 89 20 95 Nasal Cannula 2.0 05/01/19 21:00 Nasal Cannula 2.0 05/01/19 20:03 89 20 98 Nasal Cannula 2.0 28 88 18 95 05/01/19 20:00 98.5 85 18 126/61 (82) 96 05/01/19 20:00 84 Intake and Output 05/01/19 05/02/19 19:00 07:00 Intake Total 120 ml Balance 120 ml Intake Oral 120 ml # Voids 3 2 Laboratory Tests 05/02/19 06:01: White Blood Count 16.6H, Red Blood Count 4.27, Hemoglobin 11.3L, Hematocrit 33.7L, Mean Corpuscular Volume 79L, Mean Corpuscular Hemoglobin 26.6L, Mean Corpuscular Hemoglobin Concent 33.6, Red Cell Distribution Width 14.0, Platelet Count 279, Mean Platelet Volume 5.1L, Neutrophils (%) (Auto) 83.1H, Lymphocytes (%) (Auto) 9.8L, Monocytes (%) (Auto) 6.8, Eosinophils (%) (Auto) 0.0, Basophils (%) (Auto) 0.3, Sodium Level 133L, Potassium Level 4.0, Chloride Level 99, Carbon Dioxide Level 26, Anion Gap 8, Blood Urea Nitrogen 39H, Creatinine 1.5H, Estimat Glomerular Filtration Rate 34.4, Glucose Level 160#H, Calcium Level 8.2L Height (Feet): 5 Height (Inches): 10.00 Weight (Pounds): 214 General Appearance: no apparent distress, alert EENT: normal ENT inspection Neck: normal alignment Cardiovascular: normal rate Respiratory/Chest: rhonchi - bilaterally Abdomen: non tender, soft 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
[2019-05-02] MEDS: Losartan 50mg tab ORAL SCH (17:30)
[2019-05-02 20:00] VITALS: BP 143/75
[2019-05-02] MEDS: TraZODone 100mg tab ORAL SCH (20:31)
--- NOTE | 2019-05-02 22:37 | Pulmonology Progress Note ---
Assessment/Plan Assessment/Plan Pulmonary Progress Note HPI Patient is a 69-year-old female with Past Medical History of Hypertension and Chronic Obstructive Pulmonary Disease. She was a former smoker. Admitted with Pneumonia, had complaints of fever and cough and nausea and vomiting, malaise, general body pain. Noted chills, cough with green phlegm. Also felt nauseous. No diarrhea. Denies any chest pain. Had whole body pain. Cough and SOB improving Allergies: No Known Allergies Past Medical History: Hypertension, HHD, Chronic Obstructive Pulmonary Disease Past Surgical History: Hysterectomy Pertinent Family History: none Social History: Previous smoking history All Other Systems: negative except mentioned in HPI Physical Exam Vital Signs Noted General Appearance: alert, no distress Head: normocephalic, atraumatic Eyes: bilateral eye PERRL, bilateral eye EOMI ENT: hearing grossly normal, normal pharynx Neck: full range of motion, supple, no meningismus Respiratory: chest non-tender, decreased breath sounds, occasional rhonchi, few crackles Cardiovascular: regular rate, rhythm, no murmur, HS1, HS2, RRR Gastrointestinal: normal bowel sounds, non tender, no mass, no organomegaly, softt, non-distended Musculoskeletal: normal strength, no wasting Neurologic: motor strength/tone normal Psychiatric: mood/affect normal Impression: Pneumonia Sepsis Influenza-like symptoms Chronic Obstructive Pulmonary Disease with exacerbation Mild hyponatremia Hypertension, HHD Plan - Antibiotics - convert to PO on DC - HHN - O2 PRN - wean to RA - Wean solumedrol to Prednisone - PPX - Monitor 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 Trelergy - Cultures negative EKG: Rate: normal Rhythm: NSR ST Segments: no acute changes Chest X-Ray: no effusion, no pneumothorax, other - PRUDENCE infiltrate, bibasal atelectasis Subjective ROS Limited/Unobtainable: No Allergies: Coded Allergies: No Known Allergies (Verified , 04/13/08) Objective Last 24 Hour Vital Signs Date Time Temp Pulse Resp B/P (MAP) Pulse Ox O2 Delivery O2 Flow Rate FiO2 05/02/19 19:58 98 Nasal Cannula 2.0 05/02/19 19:57 88 18 97 Room Air 21 05/02/19 19:57 90 18 99 Room Air 21 05/02/19 19:56 86 18 98 Nasal Cannula 2.0 28 05/02/19 19:51 90 18 100 Room Air 21 88 18 98 05/02/19 19:23 95 05/02/19 17:30 152/87 05/02/19 16:00 98.8 96 20 152/87 (108) 98 05/02/19 16:00 88 05/02/19 15:35 79 18 99 Nasal Cannula 2.0 28 77 16 98 05/02/19 12:00 98.1 85 20 148/84 (105) 98 05/02/19 12:00 90 05/02/19 11:21 81 18 99 Room Air 21 82 16 98 05/02/19 09:29 83 18 96 Nasal Cannula 2.0 28 05/02/19 09:29 80 18 96 Nasal Cannula 2.0 05/02/19 09:18 116/66 05/02/19 09:00 Nasal Cannula 2.0 Nasal Cannula 2.0 05/02/19 08:00 100 05/02/19 08:00 98.2 93 20 116/66 (83) 97 05/02/19 07:10 75 18 100 Room Air 21 80 17 98 05/02/19 04:00 97.4 84 18 126/80 (95) 97 05/02/19 04:00 78 05/02/19 03:34 76 20 100 Nasal Cannula 2.0 28 74 18 98 05/02/19 00:00 98.4 84 18 127/62 (83) 96 05/02/19 00:00 87 05/01/19 23:10 76 20 98 Nasal Cannula 2.0 28 72 18 94 Intake and Output 05/01/19 05/02/19 19:00 07:00 Intake Total 120 ml Balance 120 ml Intake Oral 120 ml # Voids 3 2 Microbiology Date/Time Source Procedure Growth Status 04/29/19 23:50 Blood Blood Culture - Preliminary NO GROWTH AFTER 48 HOURS Resulted 04/29/19 23:35 Blood Blood Culture - Preliminary NO GROWTH AFTER 48 HOURS Resulted 04/29/19 23:50 Nasal Nares - Final Complete 04/29/19 23:50 Nasal Nares - Final Complete Laboratory Tests 05/02/19 06:01: White Blood Count 16.6H, Red Blood Count 4.27, Hemoglobin 11.3L, Hematocrit 33.7L, Mean Corpuscular Volume 79L, Mean Corpuscular Hemoglobin 26.6L, Mean Corpuscular Hemoglobin Concent 33.6, Red Cell Distribution Width 14.0, Platelet Count 279, Mean Platelet Volume 5.1L, Neutrophils (%) (Auto) 83.1H, Lymphocytes (%) (Auto) 9.8L, Monocytes (%) (Auto) 6.8, Eosinophils (%) (Auto) 0.0, Basophils (%) (Auto) 0.3, Sodium Level 133L, Potassium Level 4.0, Chloride Level 99, Carbon Dioxide Level 26, Anion Gap 8, Blood Urea Nitrogen 39H, Creatinine 1.5H, Estimat Glomerular Filtration Rate 34.4, Glucose Level 160#H, Calcium Level 8.2L Current Medications Medications (Trade) Dose Ordered Sig/Wesley Route PRN Reason Start Time Stop Time Status Last Admin Dose Admin Acetaminophen (Tylenol) 650 mg Q4H PRN ORAL Mild Pain/Temp > 100.5 04/30/19 12:45 05/30/19 12:44 Acetaminophen (Tylenol) 650 mg Q4H PRN RECTAL Mild Pain/Temp > 100.5 04/30/19 12:45 05/30/19 12:44 Al Hydroxide/Mg Hydroxide (Mylanta) 30 ml Q2H PRN ORAL HEARTBURN 04/30/19 14:45 05/30/19 14:44 04/30/19 14:50 Albuterol Sulfate (Proventil MDI) 1 puff Q4H PRN INH SHORTNESS OF BREATH 04/30/19 05:30 05/30/19 05:29 Albuterol/ Ipratropium (Albuterol/ Ipratropium) 3 ml Q4HRT HHN 04/30/19 19:00 05/05/19 18:59 05/02/19 19:50 Azithromycin 500 mg/Dextrose 275 ml @ 275 mls/hr Q24HRS IV 05/01/19 06:00 05/07/19 06:59 05/02/19 05:47 Beclomethasone Dipropionate (Qvar 80) 2 puff TWICE A DAY INH 04/30/19 09:00 05/30/19 08:59 05/02/19 19:50 Benzonatate (Tessalon Perles) 200 mg THREE TIMES A DAY ORAL 05/01/19 13:00 05/31/19 12:59 05/02/19 17:31 Ceftriaxone Sodium 1 gm/ Dextrose 55 ml @ 110 mls/hr Q24H IVPB 04/30/19 06:00 05/07/19 05:59 05/02/19 07:05 Dextrose (Dextrose 50%) 25 ml Q30M PRN IV Hypoglycemia 05/01/19 10:00 05/31/19 09:59 Dextrose (Dextrose 50%) 50 ml Q30M PRN IV Hypoglycemia 05/01/19 10:00 05/31/19 09:59 Fluticasone Propionate (Flonase) 1 spray TWICE A DAY NASAL 04/30/19 09:00 05/30/19 08:59 05/02/19 17:31 Guaifenesin/ Dextromethorphan (Robitussin DM Syrup) 10 ml Q4H PRN ORAL For Cough 05/01/19 10:00 05/31/19 09:59 Heparin Sodium (Porcine) (Heparin 5000 units/ml) 5,000 units EVERY 12 HOURS SUBQ 04/30/19 09:00 05/30/19 08:59 05/02/19 20:32 Insulin Aspart (NovoLOG) TIAC SUBQ 05/01/19 11:30 05/31/19 11:29 05/02/19 17:36 Levothyroxine Sodium (Synthroid) 150 mcg DAILY@0630 ORAL 04/30/19 06:30 05/30/19 06:29 05/02/19 05:47 Losartan Potassium (Cozaar) 50 mg BID ORAL 05/02/19 18:00 06/01/19 17:59 05/02/19 17:30 Magnesium Hydroxide (Mom) 30 ml DAILYPRN PRN ORAL Constipation 04/30/19 12:45 05/30/19 12:44 04/30/19 20:49 Meloxicam (Mobic) 15 mg DAILY ORAL 04/30/19 09:00 05/30/19 08:59 05/02/19 09:19 Metformin HCl (Glucophage) 1,000 mg BIDPC ORAL 05/02/19 18:00 06/01/19 17:59 05/02/19 17:30 Mirtazapine (Remeron) 30 mg BEDTIME ORAL 04/30/19 03:45 05/30/19 03:44 05/02/19 20:30 Pantoprazole (Protonix) 40 mg DAILY ORAL 04/30/19 09:00 2/3/20 08:59 05/02/19 09:19 Sitagliptin Phosphate (Januvia) 100 mg ACBREAKFAST ORAL 05/03/19 06:30 06/02/19 06:29 Trazodone HCl (Desyrel) 600 mg BEDTIME ORAL 04/30/19 03:45 05/30/19 03:44 05/02/19 20:31 Darvin Austin MD May 02, 2019 22:37
[2019-05-03] VITALS: BP 134/77
[2019-05-03] MEDS: Albuterol/Ipratropium 3ml neb HHN SCH ×3 (02:56→12:00)
[2019-05-03 04:00] VITALS: BP 150/82
[2019-05-03] MEDS: cefTRIAXone 1 GM in D5W 55 ML IVPB SCH (05:19)
[2019-05-03] MEDS: NovoLOG Insulin Flexpen SUBQ SCH ×2 (05:31→12:30)
[2019-05-03] MEDS: Azithromycin 500 MG in D5W 275 ML IV SCH (05:32)
[2019-05-03 08:00] VITALS: BP 163/100
[2019-05-03] MEDS: Heparin 5000 units/ml inj SUBQ SCH (09:00)
[2019-05-03] MEDS: Benzonatate 100mg Perles ORAL SCH ×2 (09:28→13:42)
[2019-05-03] MEDS: Flonase Nasal Inhaler 16gm NASAL SCH (09:28)
[2019-05-03] MEDS: Meloxicam 15 MG TAB ORAL SCH (09:28)
[2019-05-03] MEDS: metFORMIN 500mg tab ORAL SCH (09:28)
[2019-05-03] MEDS: Losartan 50mg tab ORAL SCH (09:28)
[2019-05-03 11:55] VITALS: BP 144/86
[2019-05-03] MEDS: QVAR 80mcg Inh - 8.7gm INH SCH (12:00)
[2019-05-03] MEDS ORDERED: JANUVIA100 MG ORAL (12:36)
[2019-05-03] MEDS ORDERED: AUGMENTIN 875-1 EAC1 ORAL (12:36)
--- NOTE | 2019-05-04 09:44 | Discharge Summary ---
Discharge Summary Discharge Summary _ DATE OF ADMISSION: 04/30/2019 DATE OF DISCHARGE: 05/03/2019 DISCHARGED BY: Dr. Price REASON FOR ADMISSION: 69 years old female with past medical history of hypertension, COPD, presented with persistent cough for several days, reported as nonproductive along with generalized weakness and dyspnea on exertion. Patient also noted urinary incontinence associated with the coughing , which was new in onset. Patient reported history of smoking , quit 8 - 9 years ago. Patient was using inhaler at home without much relief. Vital signs demonstrated low-grade fever, blood pressure was elevated 171/86, pulse oximetry was stable on room air ,and patient was mildly tachycardic. Laboratory work-up revealed significant leukocytosis WBC 22.7 , stable hemoglobin and hematocrit. BUN 29, creatinine 1.4. Glucose 180. Lactic acid 1.1. Troponin was negative. EKG revealed sinus tachycardia no acute ischemic changes. Urinalysis revealed no evidence of urinary tract infection. Influenza swab was negative. Chest X-ray demonstrated increased left upper lobe opacity, possibly edema versus infectious process. No pleural effusion. Bibasilar atelectasis versus aspiration. Normal heart size. Patient admitted for sepsis ,pneumonia, influenza-like symptoms, COPD with exacerbation. CONSULTANTS: workforce specialist Dr. Paul pulmonary [facility] COURSE: Patient admitted to telemetry floor and started on empiric antibiotics. Supplemental oxygen provided and titrated to keep pulse oximetry above 92%. Nebulizing treatment with bronchodilator provided. Patient received a dose of steroids in the emergency department. Patient had Pneumovax and Prevnar 13 prior . Blood cultures were negative. Sputum culture revealed Lyubov. Patient was on the IV steroids, which were tapered fast and changed to oral due to significant hyperglycemia. Qvar continued. Antitussive provided as needed. Blood sugar was managed with Januvia and metformin and sliding scale of insulin as needed. Blood pressure was managed with angiotensin receptor ron and remained stable. Losartan dose was increased to keep blood pressure under control. DVT prophylaxis provided. Patient clinically stabilized and was ready for discharge home. FINAL DIAGNOSES: Sepsis Left upper lobe pneumonia/community-acquired pneumonia Influenza-like symptoms COPD with exacerbation Hyperglycemia Hypertension Urinary incontinence Osteoarthritis DISCHARGE MEDICATIONS: See Medication Reconciliation list. DISCHARGE INSTRUCTIONS: Patient was discharged home. Follow-up with a primary care provider in 1 week. I have been assigned to dictate discharge summary for this account. I was not involved in the patient's management. Treasure Joyce NP May 04, 2019 09:44
== END 2019-05-03 13:57 | disposition home or self-care (01) | DRG 871 ==
LOC: EDBD 23:42 → EMR 23:50 → 2E 04-30 01:10 → EDBEDREQ 04-30 01:49
DX: A41.9 Sepsis, unspecified organism (principal); J11.00 Influenza due to unidentified influenza virus with unspecified type of pneumonia; J44.1 Chronic obstructive pulmonary disease with (acute) exacerbation; E87.1 Hypo-osmolality and hyponatremia; Z87.891 Personal history of nicotine dependence; E03.9 Hypothyroidism, unspecified; I10 Essential (primary) hypertension; M19.90 Unspecified osteoarthritis, unspecified site; R73.9 Hyperglycemia, unspecified; R32 Unspecified urinary incontinence
CPT/HCPCS: 36415; 71045; 80048; 80053; 81003; 82962; 83605; 84484; 85007; 85025; 86710; 87040; 87070; 87205; 93005; 94640; 94664; 96374; 96375; 99291; J1815; J2405; J7030; J7620

== ENCOUNTER 2019-06-12 09:49 | Inpatient (IN) | payer MEDICARE, BC ==
[~2019-06-12] VITALS: Ht 175.3 cm; Wt 103.0 kg
[~2019-06-12 09:49] MED LIST changes: +AUGMENTIN 875-1 EAC1 ORAL; +JANUVIA100 MG ORAL
[2019-06-12] MEDS ORDERED: ELLURA200 MG PO (10:01)
[2019-06-12] MEDS ORDERED: PREDNISONE10 M2 PO (10:01)
[2019-06-12] MEDS ORDERED: DIETHYLPROPION25 MG PO (10:01)
[2019-06-12] MEDS ORDERED: MAGNESIUM100 MG PO (10:01)
[2019-06-12] MEDS ORDERED: MELOXICAM15 MG PO (10:01)
[2019-06-12] MEDS ORDERED: METFORMIN ER G500 MG PO (10:01)
[2019-06-12] MEDS ORDERED: MELATONIN10 M2 ORAL (10:01)
--- NOTE | 2019-06-12 10:04 | Emergency Room Report ---
History of Present Illness General Chief Complaint: Flu Like Symptoms Source: Patient, Family Member Present Illness HPI Patient has left-sided chest pain nonproductive cough without fevers or chills for last 4 days. She has felt nauseated and vomiting. There is no diarrhea. She is having trouble keeping down food. She denies any sore throat at this time. She rates the pain 8/10 and aching. She also feels weakness. She denies any calf pain or swelling. There is no abdominal pain. She has total body aches at this time. The cough is nonproductive. Chills. No documented fever Patient was admitted for 6 days with pneumonia in April. She does not smoke at this time. Constipation. No sore throat, palpitations, diarrhea, dysuria, abdominal pain, rashes, visual changes, dizziness, headache. Chronic back pain with radiculopathy. Allergies: Coded Allergies: No Known Allergies (Verified , 04/13/08) Patient History Past Medical History: see triage record, old chart reviewed, other - Radiculopathy Past Surgical History: hysterectomy - Fibroids, other - Hip surgery Social History: Denies: smoking - Prior, alcohol use, drug use Social History Narrative Lives with daughter Reviewed Nursing Documentation: PMH: Agreed; PSxH: Agreed Nursing Documentation-PMH Hx Cardiac Problems: Yes Hx Hypertension: Yes Hx Asthma: Yes Hx COPD: Yes Hx Diabetes: Yes - type 2 Hx Cancer: No Hx Gastrointestinal Problems: Yes - hyst Hx Neurological Problems: No Review of Systems All Other Systems: negative except mentioned in HPI Physical Exam Vital Signs Date Time Temp Pulse Resp B/P (MAP) Pulse Ox O2 Delivery O2 Flow Rate FiO2 06/12/19 09:51 98.8 108 17 148/88 (108) 94 Room Air Sp02 EP Interpretation: reviewed, normal General Appearance: no apparent distress, GCS 15, other - ill appearing Head: normocephalic Eyes: bilateral eye normal inspection, bilateral eye PERRL, bilateral eye EOMI ENT: normal pharynx, moist mucus membranes Neck: supple Respiratory: decreased breath sounds, rales - L Cardiovascular #1: regular rate, rhythm Cardiovascular #2: 2+ radial (R) Gastrointestinal: normal inspection, non tender, no mass, non-distended, decreased bowel sounds Genitourinary: no CVA tenderness Musculoskeletal: back normal, normal range of motion, no calf tenderness, gait/ station normal Neurologic: alert, oriented x3, grossly normal Psychiatric: depressed affect, other - apprehensive and frustrated Skin: no rash, warm/dry, other - sallow Procedures Critical Care Time Critical Care Time Total Critical Care Time: 30 min bedside evaluation and treatment excludes procedures (EKG). Reason for critical care: Sepsis, leukocytosis, left-sided chest pain Possible complications: hypotension, hypertension, [place], shock, arrhythmias, metabolic acidosis, end organ damage, respiratory failure. Interventions: Sepsis resuscitation, antibiotic administration, repeat evaluation, analgesia Course: Patient presents with left-sided chest pain and impending feeling of doom. Evaluation reveals elevated white count. Sepsis resuscitation begun. X- ray reveals source of infection. Triple antibiotics ordered. Several repeat evaluations due to continued pain and anxiety. Improvement with this. Discussion of findings with patient and family. Discussion with admitting physician. Oxygen begun. Admitted to telemetry. Consultations: nursing staff, family, respiratory therapy, admitting physician Performed by: Dr. Dumont Tolerated well condition = serious Medical Decision Making Diagnostic Impression: Primary Impression: Sepsis Qualified Codes: A41.9 - Sepsis, unspecified organism; R65.20 - Severe sepsis without septic shock; N17.9 - Acute kidney failure, unspecified Additional Impressions: Lobular pneumonia Renal insufficiency Hyponatremia COPD (chronic obstructive pulmonary disease) Qualified Codes: J44.9 - Chronic obstructive pulmonary disease, unspecified ER Course Patient presents with left-sided chest pain and nonproductive cough. Differential includes acute myocardial infarction, COPD exacerbation, influenza or other viral upper respiratory process, reflux esophagitis amongst others. Evaluation with EKG, chest x-ray and labs including lactic acid. Treatment with gentle IV hydration and Zofran with morphine. Consideration of use of Solu -Medrol based on labs and x-ray. Lab called with white count of 31,000. 10:25. Blood cultures ordered and fluid bolus and consideration for antibiotics. Capillary fill good. Still apprehensive but normal mentation. BP good. HR 99. Sepsis re-evaluation. Left-sided pneumonia. Antibiotics ordered 12:15 infiltrate increased. No effusion. As patient recently admitted to the hospital, coverage for possible hospital acquired pneumonia. Lactate normal. Discussed results with patient. She still feels pain and analgesia is repeated. No wheezing. No respiratory distress. Patient admitted telemetry. Examined by Dr. Perez in emergency department. Consider CT scan to exclude postobstructive infiltrate. Laboratory Tests Test 06/12/19 10:15 White Blood Count 31.0 K/UL (4.8-10.8) *H Red Blood Count 5.00 M/UL (4.20-5.40) Hemoglobin 13.1 G/DL (12.0-16.0) Hematocrit 39.6 % (37.0-47.0) Mean Corpuscular Volume 79 FL (80-99) L Mean Corpuscular Hemoglobin 26.2 PG (27.0-31.0) L Mean Corpuscular Hemoglobin Concent 33.1 G/DL (32.0-36.0) Red Cell Distribution Width 12.9 % (11.6-14.8) Platelet Count 376 K/UL (150-450) Mean Platelet Volume 5.1 FL (6.5-10.1) L Neutrophils (%) (Auto) % (45.0-75.0) Lymphocytes (%) (Auto) % (20.0-45.0) Monocytes (%) (Auto) % (1.0-10.0) Eosinophils (%) (Auto) % (0.0-3.0) Basophils (%) (Auto) % (0.0-2.0) Differential Total Cells Counted 100 Neutrophils % (Manual) 84 % (45-75) H Lymphocytes % (Manual) 13 % (20-45) L Monocytes % (Manual) 3 % (1-10) Eosinophils % (Manual) 0 % (0-3) Basophils % (Manual) 0 % (0-2) Band Neutrophils 0 % (0-8) Platelet Estimate Adequate Platelet Morphology Normal Red Blood Cell Morphology Anisocytosis 1+ Microcytosis 1+ Prothrombin Time 10.5 SEC (9.30-11.50) Prothrombin Time INR 1.0 (0.9-1.1) Activated Partial Thromboplast Time 29 SEC (23-33) Sodium Level 129 MMOL/L (136-145) L Potassium Level 4.6 MMOL/L (3.5-5.1) Chloride Level 90 MMOL/L (98-107) L Carbon Dioxide Level 20 MMOL/L (21-32) L Anion Gap 20 mmol/L (5-15) H Blood Urea Nitrogen 23 mg/dL (7-18) H Creatinine 1.5 MG/DL (0.55-1.30) H Estimate Glomerular Filtration Rate 34.4 mL/min (>60) Glucose Level 158 MG/DL (74-106) H Lactic Acid Level 1.20 mmol/L (0.4-2.0) Calcium Level 9.4 MG/DL (8.5-10.1) Total Bilirubin 0.6 MG/DL (0.2-1.0) Aspartate Amino Transferase (AST) 23 U/L (15-37) Alanine Aminotransferase (ALT) 29 U/L (12-78) Alkaline Phosphatase 85 U/L (46-116) Troponin I 0.000 ng/mL (0.000-0.056) Pro-B-Type Natriuretic Peptide 143 pg/mL (0-125) H Total Protein 8.7 G/DL (6.4-8.2) H Albumin 3.4 G/DL (3.4-5.0) Globulin 5.3 g/dL Albumin/Globulin Ratio 0.6 (1.0-2.7) L Microbiology Date/Time Source Procedure Growth Status 06/12/19 10:15 Nasal Nares - Final Complete 06/12/19 10:15 Nasal Nares - Final Complete EKG Diagnostic Results Rate: normal Rhythm: NSR ST Segments: no acute changes - RBBB Rhythm Strip Diag. Results EP Interpretation: yes Rhythm: NSR, no PVC's, no ectopy Chest X-Ray Diagnostic Results Chest X-Ray Diagnostic Results : Chest X-Ray Ordered: Yes # of Views/Limited/Complete: 1 View Indication: Chest Pain EP Interpretation: Yes Interpretation: no effusion, no pneumothorax, other - L infiltrate worsened from 04/29 Impression: Other Electronically Signed by: Electronically signed by Darvin Dumont MD Last Vital Signs Date Time Temp Pulse Resp B/P (MAP) Pulse Ox O2 Delivery O2 Flow Rate FiO2 06/12/19 18:41 100.8 06/12/19 16:00 105 18 130/50 (76) 95 06/12/19 16:00 Nasal Cannula 2.0 06/12/19 15:52 21 Status: improved Disposition: ADMITTED INPATIENT Condition: Serious Darvin Dumont MD Jun 12, 2019 10:04
[2019-06-12] MEDS ORDERED: Morphine Sulfate 4mg/ml Inj (IV USE ONLY) IVP ONE (10:15)
[2019-06-12] MEDS ORDERED: Albuterol ud Inhalation HHN ONE (10:15)
[2019-06-12 10:21] LABS: HEMATOCRIT 39.6 % (37.0-47.0); HEMOGLOBIN 13.1 G/DL (12.0-16.0); MEAN CORPUSCULAR VOLUME 79 FL (80-99); PLATELET COUNT 376 K/UL (150-450); RED CELL DISTRIBUTION WIDTH 12.9 % (11.6-14.8)
--- NOTE | 2019-06-12 10:23 | NUR ---
ED Nurse Note: pt arrives from home stating flu like s/s x 4 days. relates recent admission for pneumonia. no active vomiting states coughing upp small amts of phlegm.. pt anxious affect, taryn at bs. pt with hhn done by resp therapist. pt tolerates iv and lab draw well.
--- NOTE | 2019-06-12 10:37 | NUR ---
ED Nurse Note: blood cx sent as ordered
[2019-06-12 10:38] LABS: ANION GAP 20 mmol/L (5-15); BLOOD UREA NITROGEN 23 mg/dL (7-18); CALCIUM 9.4 MG/DL (8.5-10.1); CARBON DIOXIDE 20 MMOL/L (21-32); CHLORIDE 90 MMOL/L (98-107); CREATININE 1.5 MG/DL (0.55-1.30); POTASSIUM 4.6 MMOL/L (3.5-5.1); SODIUM 129 MMOL/L (136-145)
[2019-06-12 10:44] LABS: ALANINE AMINOTRANSFERASE 29 U/L (12-78); ALBUMIN 3.4 G/DL (3.4-5.0); ALBUMIN/GLOBULIN RATIO 0.6 (1.0-2.7); ALKALINE PHOSPHATASE 85 U/L (46-116); ASPARTATE AMINO TRANSFERASE 23 U/L (15-37); BILIRUBIN,TOTAL 0.6 MG/DL (0.2-1.0)
[2019-06-12 10:46] VITALS: BP 144/65
--- NOTE | 2019-06-12 11:01 | NUR ---
ED Nurse Note: pt relates pain not improved after morphine given requests more pain meds
[2019-06-12] MEDS ORDERED: Hydromorphone 0.5mg/0.5ml inj IVP ONE (11:15)
[2019-06-12] MEDS ORDERED: Piperacillin/Tazobactam 3.375 GM in NS 110 ML IVPB ONE (12:15)
[2019-06-12] MEDS ORDERED: Vancomycin 1.5 GM in NS 275 ML IVPB ONE (12:15)
--- NOTE | 2019-06-12 12:24 | Diagnostic Imaging Report ---
EXAM: XR Chest, 1 View CLINICAL HISTORY: CP TECHNIQUE: Frontal view of the chest. COMPARISON: Chest x-rays dated 04/29/19 FINDINGS: Lungs: Persistent left perihilar opacity, possibly representing pulmonary edema versus infiltrate. Subsegmental atelectasis in the lung bases. Pleural space: Unremarkable. The costophrenic angles are sharp. No visible pneumothorax. Heart: Unremarkable. No cardiomegaly. Mediastinum: Unremarkable. Bones/joints: Unremarkable. Vasculature: Atherosclerotic calcifications are noted within the aortic arch. Tubes, lines and devices: Telemetry leads overlie the thorax. IMPRESSION: 1. Persistent left perihilar opacity, possibly representing pulmonary edema versus infiltrate. 2. Subsegmental atelectasis in the lung bases.
[2019-06-12 12:43] VITALS: BP 129/69
--- NOTE | 2019-06-12 12:44 | NUR ---
ED Nurse Note: pt resting mor comfortably now. family at bs. no n/v no increased pain. abx infusing well.
[2019-06-12] MEDS ORDERED: HYDROmorphone 1mg/ml Carpuject IVP ONE ×2 (13:15→13:30)
--- NOTE | 2019-06-12 13:52 | NUR ---
ED Nurse Note:\ ]remedicated for pain. aware and agrees to plan for admission.
[2019-06-12 14:11] VITALS: BP 127/62
--- NOTE | 2019-06-12 14:17 | NUR ---
ED Nurse Note: admitting md dr wright here to ciera yuan.
--- NOTE | 2019-06-12 15:23 | NUR ---
ED Nurse Note: pt voiding urine sample, amb steady gait.
--- NOTE | 2019-06-12 15:36 | NUR ---
ED Nurse Note: report given to anatoliy moura on telemetry. pt prepared to be admission to the floor with acls protocol
[2019-06-12 16:00] VITALS: BP 130/50
--- NOTE | 2019-06-12 16:00 | NUR ---
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 VSS except for 101.8F temp. RR even and unlabored on 2L NC. No s/sx of distress. Due to pt complaining of weakness, yellow gown and socks given. Patient very easily overwhelmed and begins to cry and get anxious. All belongings at bedside. Bed low and locked, side rails upx2, call light within reach. Will continue to monitor.
[2019-06-12 16:04] LABS: APPEARANCE,URINE CLEAR; BILIRUBIN, URINE NEGATIVE (NEGATIVE); COLOR,URINE PALE YELLOW; GLUCOSE, URINE (UA) NEGATIVE (NEGATIVE); KETONES,URINE 3+ (NEGATIVE); LEUKOCYTE ESTERASE ,URINE NEGATIVE (NEGATIVE); NITRITE,URINE NEGATIVE (NEGATIVE); PH,URINE 5 (4.5-8.0); PROTEIN,URINE 2+ (NEGATIVE); UROBILINOGEN,URINE NORMAL MG/DL (0.0-1.0)
[2019-06-12] MEDS ORDERED: PERFOROMIS20 MCG/2 M IH (16:52)
--- NOTE | 2019-06-12 19:36 | NUR ---
HAND-OFF: Report given to Luz Castro RN. Patient stable. Plan of care endorsed. Spoke with Dr. Perez regarding sustained fever of 100.8F. No new orders. Cooling measures continued.
--- NOTE | 2019-06-12 19:38 | NUR ---
NURSE NOTES: Received patient from RODGER Bejarano. Patient laying awake watching television in bed. Daughter is sitting by her side. There are no signs of distress noted at this time. She is complaining of slight pain on the left shoulder but no radiation. She is AOx 4. She is able to ambulate with assistance. Checked IV site, patent and flushed. No signs of erythema, bleeding, or infiltration. Bed in the lowest position with brakes on and side rails up x2. Call light within reach. Will continue plan of care.
[2019-06-12 20:00] VITALS: BP 103/58
[2019-06-12] MEDS: Azithromycin 500 MG in D5W 275 ML IV SCH (20:42)
[2019-06-12] MEDS: HYDROcodone/Acetamin 10/325 tab ORAL PRN (20:44)
--- NOTE | 2019-06-12 20:54 | NUR ---
NURSE NOTES: Called Dr. Blum's exchange regarding patient's request to have her medications continued. Awaiting callback.
--- NOTE | 2019-06-12 20:59 | History & Physical ---
History of Present Illness General Date patient seen: Jun 12, 2019 Time patient seen: 04:00 Reason for Hospitalization: Flu Like Symptoms Present Illness HPI This is a 69-year-old female with a past medical history of COPD with chronic exacerbations that happen frequently who presents emergency room with worsening shortness of breath, cough, and fever. X-ray reveals patient does have a positive left lobe infiltrate and she is also complaining of shortness of breath and pain on the left chest. However patient states she has been quite immobile lately, and is also complaining of calf pain so we will obtain Doppler ultrasound to rule out DVT- at this point in time do have a low suspicion. Patient has been admitted for treatment of sepsis secondary to community- acquired pneumonia with underlying comorbidities including a longstanding history of COPD, patient versus she used to be a heavy smoker, but no longer does. Allergies: Coded Allergies: No Known Allergies (Verified , 04/13/08) Medication History Scheduled Albuterol Sulfate (Albuterol Sulfate), 0.63 MG HHN BIDAC, (Reported) Formoterol Fumarate (Perforomist), 20 MCG IH BID, (Reported) Levothyroxine Sodium* (Levothyroxine Sodium*), 150 MCG ORAL DAILY, (Reported) Lorazepam* (Lorazepam*), 2 MG ORAL BEDTIME, (Reported) Losartan Potassium* (Losartan Potassium*), 25 MG ORAL DAILY, (Reported) Meloxicam* (Meloxicam*), 15 MG PO DAILY, (Reported) Metformin HCl (Metformin ER Gastric), 500 MG PO BID, (Reported) Omeprazole (Omeprazole), 40 MG ORAL DAILY, (Reported) Trazodone* (Trazodone*), 150 MG ORAL BEDTIME, (Reported) Triamterene/Hydrochlorothiazid (Triamterene-Hctz 37.5-25 Mg Cp), 1 CAP ORAL DAILY, (Reported) Scheduled PRN Melatonin (Melatonin), 10 MG ORAL BEDTIME PRN for Insomnia, (Reported) Miscellaneous Medications Cranberry Extract (Ellura), 200 MG PO, (Reported) Magnesium Amino Acid Chelate (Magnesium), 200 MG PO, (Reported) Discontinued Medications Amoxicillin/Potassium Clav 875-125* (Augmentin 875-125 Tablet*), 1 TAB ORAL TWICE A DAY Discontinued Reason: Therapy completed Cephalexin* (Keflex*), 500 MG ORAL EVERY 8 HOURS Discontinued Reason: Therapy completed Diethylpropion Hcl (Diethylpropion Hcl), 25 MG PO, (Reported) Discontinued Reason: Therapy completed Formoterol Fumarate (Perforomist), 20 MCG IH BID, (Reported) Discontinued Reason: Therapy completed Prednisone (Prednisone), 20 MG PO DAILY, (Reported) Discontinued Reason: Therapy completed Sitagliptin (Januvia), 100 MG ORAL DAILY Discontinued Reason: Therapy completed Umeclidinium Brm/Vilanterol Tr (Anoro Ellipta 62.5-25 Mcg INH), 6.25 MCG INH DAILY, (Reported) Discontinued Reason: Therapy completed Patient History Healthcare decision maker Resuscitation status Do Not Resuscitate Advanced Directive on File Review of Systems Review of Symptoms General ROS: Fever + Psychological ROS: no depression or mood changes, no memory loss Ophthalmic ROS: no visual changes or eye irritation ENT ROS: no nasal congestion, hearing loss, dizziness Allergy and Immunology ROS: no allergic symptoms or urticaria Hematological and Lymphatic ROS: no swollen glands, unusual bleeding or bruising Endocrine ROS: no polyuria, polydipsia, weight changes, temperature intolerance Respiratory ROS: + Cough, + SOB, +Wheezing Cardiovascular ROS: no chest pain or dyspnea on exertion Gastrointestinal ROS: denies abdominal pain, bright red blood in stool. Musculoskeletal ROS: no myalgias or arthralgias Neurological ROS: no TIA or stroke symptoms Dermatological ROS: no new or changing skin lesions, rashes or pruritis Physical Exam Physical Exam General appearance: alert, cooperative, no distress, appears stated age Head: Normocephalic, without obvious abnormality, atraumatic Eyes: conjunctivae/corneas clear. PERRL, EOM's intact. Fundi benign Throat: Lips, mucosa, and tongue normal. Teeth and gums normal Neck: supple, symmetrical, trachea midline, no adenopathy, thyroid: not enlarged, symmetric, no tenderness/mass/nodules, no carotid bruit and no JVD Lungs: Diffuse wheezing, tight airflow, cough Heart: regular rate and rhythm, S1, S2 normal, no murmur, click, rub or gallop Abdomen: soft, non-tender. Bowel sounds normal. No masses, no organomegaly Extremities: extremities normal, atraumatic, no cyanosis or edema Pulses: 2+ and symmetric Skin: Skin color, texture, turgor normal. No rashes or lesions Neurologic: Grossly normal Last 24 Hour Vital Signs Date Time Temp Pulse Resp B/P (MAP) Pulse Ox O2 Delivery O2 Flow Rate FiO2 06/12/19 18:41 100.8 06/12/19 16:00 101.8 105 18 130/50 (76) 95 06/12/19 16:00 Nasal Cannula 2.0 06/12/19 16:00 96 06/12/19 15:52 89 24 127/62 95 Nasal Cannula 2.0 21 06/12/19 15:33 98.7 06/12/19 14:12 24 95 Nasal Cannula 2.0 06/12/19 14:11 98 26 127/62 91 Room Air 06/12/19 12:43 99 26 129/69 95 Room Air 06/12/19 12:11 98.7 06/12/19 11:02 98.7 06/12/19 10:46 111 26 144/65 95 Room Air 06/12/19 10:18 101 22 Room Air 21 06/12/19 10:17 99 19 99 Room Air 21 101 22 98 06/12/19 09:51 98.8 108 17 148/88 (108) 94 Room Air Laboratory Tests Test 06/12/19 10:15 06/12/19 15:30 White Blood Count 31.0 K/UL (4.8-10.8) *H Red Blood Count 5.00 M/UL (4.20-5.40) Hemoglobin 13.1 G/DL (12.0-16.0) Hematocrit 39.6 % (37.0-47.0) Mean Corpuscular Volume 79 FL (80-99) L Mean Corpuscular Hemoglobin 26.2 PG (27.0-31.0) L Mean Corpuscular Hemoglobin Concent 33.1 G/DL (32.0-36.0) Red Cell Distribution Width 12.9 % (11.6-14.8) Platelet Count 376 K/UL (150-450) Mean Platelet Volume 5.1 FL (6.5-10.1) L Neutrophils (%) (Auto) % (45.0-75.0) Lymphocytes (%) (Auto) % (20.0-45.0) Monocytes (%) (Auto) % (1.0-10.0) Eosinophils (%) (Auto) % (0.0-3.0) Basophils (%) (Auto) % (0.0-2.0) Differential Total Cells Counted 100 Neutrophils % (Manual) 84 % (45-75) H Lymphocytes % (Manual) 13 % (20-45) L Monocytes % (Manual) 3 % (1-10) Eosinophils % (Manual) 0 % (0-3) Basophils % (Manual) 0 % (0-2) Band Neutrophils 0 % (0-8) Platelet Estimate Adequate Platelet Morphology Normal Red Blood Cell Morphology Anisocytosis 1+ Microcytosis 1+ Prothrombin Time 10.5 SEC (9.30-11.50) Prothromb Time International Ratio 1.0 (0.9-1.1) Activated Partial Thromboplast Time 29 SEC (23-33) Sodium Level 129 MMOL/L (136-145) L Potassium Level 4.6 MMOL/L (3.5-5.1) Chloride Level 90 MMOL/L (98-107) L Carbon Dioxide Level 20 MMOL/L (21-32) L Anion Gap 20 mmol/L (5-15) H Blood Urea Nitrogen 23 mg/dL (7-18) H Creatinine 1.5 MG/DL (0.55-1.30) H Estimat Glomerular Filtration Rate 34.4 mL/min (>60) Glucose Level 158 MG/DL (74-106) H Lactic Acid Level 1.20 mmol/L (0.4-2.0) Calcium Level 9.4 MG/DL (8.5-10.1) Total Bilirubin 0.6 MG/DL (0.2-1.0) Aspartate Amino Transf (AST/SGOT) 23 U/L (15-37) Alanine Aminotransferase (ALT/SGPT) 29 U/L (12-78) Alkaline Phosphatase 85 U/L (46-116) Troponin I 0.000 ng/mL (0.000-0.056) Pro-B-Type Natriuretic Peptide 143 pg/mL (0-125) H Total Protein 8.7 G/DL (6.4-8.2) H Albumin 3.4 G/DL (3.4-5.0) Globulin 5.3 g/dL Albumin/Globulin Ratio 0.6 (1.0-2.7) L Urine Color Pale yellow Urine Appearance Clear Urine pH 5 (4.5-8.0) Urine Specific [place] 1.015 (1.005-1.035) Urine Protein 2+ (NEGATIVE) H Urine Glucose (UA) Negative (NEGATIVE) Urine Ketones 3+ (NEGATIVE) H Urine Blood 1+ (NEGATIVE) H Urine Nitrite Negative (NEGATIVE) Urine Bilirubin Negative (NEGATIVE) Urine Urobilinogen Normal MG/DL (0.0-1.0) Urine Leukocyte Esterase Negative (NEGATIVE) Urine RBC 2-4 /HPF (0 - 2) H Urine WBC 0-2 /HPF (0 - 2) Urine Squamous Epithelial Cells Moderate /LPF (NONE/OCC) H Urine Bacteria Few /HPF (NONE) Microbiology Date/Time Source Procedure Growth Status 06/12/19 10:15 Nasal Nares - Final Complete 06/12/19 10:15 Nasal Nares - Final Complete Height (Feet): 5 Height (Inches): 9.00 Weight (Pounds): 180 Medications Current Medications Medications (Trade) Dose Ordered Sig/[place] Route PRN Reason Start Time Stop Time Status Last Admin Dose Admin Acetaminophen (Tylenol) 650 mg Q6H PRN ORAL Mild Pain/Temp > 100.5 06/12/19 16:30 07/12/19 16:29 06/12/19 16:39 Acetaminophen/ Hydrocodone Bitart ([place] 10/325) 1 tab Q4H PRN ORAL PAIN 4-10 06/12/19 16:30 06/19/19 16:29 06/12/19 20:44 Azithromycin 500 mg/Dextrose 275 ml @ 275 mls/hr Q24HRS IV 06/12/19 20:00 06/18/19 20:59 06/12/19 20:42 Enalaprilat (Vasotec) 2.5 mg EVERY 6 HOURS IV 06/13/19 00:00 07/13/19 00:00 Heparin Sodium (Porcine) (Heparin 5000 units/ml) 5,000 units EVERY 8 HOURS SUBQ 06/12/19 22:00 07/12/19 21:59 Methylprednisolone Sodium Succinate (Solu-MEDROL) 40 mg EVERY 6 HOURS IVP 06/13/19 00:00 07/13/19 00:00 Ondansetron HCl (Zofran) 4 mg Q6H PRN IVP Nausea & Vomiting 06/12/19 16:30 07/12/19 16:29 06/12/19 16:38 Piperacillin Sod/ Tazobactam Sod 3.375 gm/Sodium Chloride 110 ml @ 27.5 mls/hr EVERY 8 HOURS IVPB 06/12/19 22:00 06/17/19 21:59 UNV Sodium Chloride 1,000 ml @ 100 mls/hr Q10H IV 06/12/19 18:45 07/12/19 18:44 06/12/19 18:56 Vancomycin HCl (Vanco rx to dose) 1 ea DAILY PRN MISC Per rx protocol 06/12/19 21:00 07/12/19 20:59 UNV Assessment/Plan Assessment/Plan: Assessment #Community-acquired pneumonia however patient is already immunocompromised with history of severe COPD exacerbations and multiple hospitalizations #COPD exacerbation #Microcytic anemia, history of being on chronic steroids #Acute renal failure secondary to dehydration #Electrolyte abnormalities secondary to dehydration Plan Given patient's risk factors and very elevated WBC of 30, will place her on Vancomycin, Zosyn, and Azithromycin empirically for now until she started to improve as she also continues to have fevers Will obtain ABG given patient has a low bicarb , want ensure CO2 is not high Blood culture, sputum culture Stool occult blood and iron profile Solu-Medrol IV every 6 hours, nebulizer scheduled frequently as needed Gentle IV fluid, patient is complaining of calf pain so also will obtain Doppler to rule out DVT Supportive measures, pain control with [place] DVT and GI prophylaxis Diet as tolerated [facility] Hospital declaration INPATIENT level of care is warranted for this patient because patient is a 89 year old with who presents with suspicion of . I have a high level of concern because . Patient is at high risk for . Plan of care/treatment include . Patient care is expected to be greater than 2 midnights. OBSERVATION level of care is warranted for this patient. Patient is a 89 year old with who presents with . Patient will be admitted for 1 midnight, but if additional night(s) is/are necessary, patient will be converted to inpatient status for the entire hospitalization Disposition: Once the patient is stable to leave the hospital, I anticipate the patient will likely be discharged to the following environment: Estimated discharge date: I spent 70 minutes on this patient's case, and minutes was dedicated to counseling and/or care coordination. MIPS ([employer]it-based Incentive Payment System) Applicable CPT: 76515, 94886 CHECK ALL THAT ARE MET: Measure #5 (CHF): All ages. Prescribe SELIN/ARB upon discharge for patients with left ventricular systolic dysfunction. If not, the reason is clearly documented in the medical chart. Measure #8 (CHF): All ages. Prescribe a beta ron upon discharge for patients with left ventricular systolic dysfunction. If not, the reason is clearly documented in the medical chart. Measure #47 Advance care plan or surrogate decision maker documented in the medical record. Measure #130 The provider has documented, updated, or reviewed the patients current medication list and has documented it in the patients note. Measure #374 (All): Send report to referring provider. Measure #407(Sepsis due to MSSA bacteremia): Age 18+ Patient treated with a beta-lactam antibiotic (Nafcillin, Oxacillin or Cefazolin) as definitive therapy. MEDICAL COMPLEXITY High complexity medical decision making (need 2/3 categories) Problem - need 4 points Acute/new problem with new plan for workup (4 points, 1 max) Acute/new problem without additional workup (3 points, 1 max) Unstable chronic problem actively being managed (2 point each, 2 max) Stable chronic problem actively being managed (1 point each, 2 max) Self-limited/transient process (constipation, muscle ache, etc) (1 point each , 2 max) Data - need 4 points Reviewed labs/imaging studies (1 points, 2 max) Independent review of imaging (EKG, xrays, etc) (2 points, 2 max) Discussed case with consult/other MD/RN (2 points, 2 max) High Risk - qualify if have one of the following: Severe exacerbation of acute problem, acute mental status change, IV narcotics , monitoring drug levels (vancomycin, INR, tacrolimus etc) Erika Perez D.O. Jun 12, 2019 20:59
[2019-06-12] MEDS ORDERED: cefTRIAXone 1 GM in D5W 55 ML IVPB SCH (21:00)
[2019-06-12] MEDS ORDERED: TraZODone 100mg tab ORAL SCH (21:00)
[2019-06-12 21:06] LABS: % IRON SATURATION 4 % (15-50); IRON 12 ug/dL (50-175); TOTAL IRON BINDING CAPACITY 298 ug/dL (250-450)
[2019-06-12] MEDS: LORazepam 1mg tab ORAL PRN (21:19)
--- NOTE | 2019-06-12 21:20 | NUR ---
NURSE NOTES: Received orders from Dr. Quintero. Noted and carried out.
[2019-06-12] MEDS: Heparin 5000 units/ml inj SUBQ SCH (21:26)
--- NOTE | 2019-06-12 21:51 | NUR ---
NURSE NOTES: Called Dr. Blum's exchange again to reach Dr. Perez regarding clarification of patient's medication list. Awaiting callback.
[2019-06-12] MEDS ORDERED: TRAZODONE HCL100 MG ORAL (21:54)
--- NOTE | 2019-06-12 22:02 | NUR ---
NURSE NOTES: Received new orders from Dr. Quintero. Noted and carried out. Addendum: 06/12/19 at 2216 by OMAYRA VELÁSQUEZ RN RN Per Dr. Quintero, must verify with pharmacy first if Trazodone 600 mg PO bedtime is a safe dose to administer.
--- NOTE | 2019-06-12 22:16 | NUR ---
NURSE NOTES: Notified Vito Kelley pharmacist, regarding patient adamantly insisting that she takes Trazodone 600 mg PO bedtime at home. Per Allie, BRIANNA to give Trazodone 600 mg PO bedtime. Noted and carried out.
[2019-06-12] MEDS ORDERED: TraZODone 100mg tab ORAL ONE (22:30)
[2019-06-12] MEDS: Piperacillin/Tazobactam 3.375 GM in NS 110 ML IVPB SCH (23:18)
[2019-06-12] MEDS: Enalaprilat 2.5mg/2ml Inj IV SCH (23:19)
[2019-06-12] MEDS: Solu-MEDROL 40mg Inj IVP SCH (23:19)
[2019-06-13] VITALS: BP 126/57
--- NOTE | 2019-06-13 03:47 | NUR ---
NURSE NOTES: Checked on patient. She is comfortably asleep.
[2019-06-13 04:00] VITALS: BP 118/60
[2019-06-13] MEDS: Enalaprilat 2.5mg/2ml Inj IV SCH ×4 (06:00→23:41)
[2019-06-13] MEDS: Heparin 5000 units/ml inj SUBQ SCH ×3 (06:43→21:18)
[2019-06-13] MEDS: Solu-MEDROL 40mg Inj IVP SCH ×4 (06:43→23:40)
[2019-06-13] MEDS: Piperacillin/Tazobactam 3.375 GM in NS 110 ML IVPB SCH ×3 (06:44→23:40)
[2019-06-13] MEDS: HYDROcodone/Acetamin 10/325 tab ORAL PRN ×3 (06:51→23:41)
[2019-06-13] MEDS: NovoLOG Insulin Flexpen SUBQ SCH ×4 (06:55→21:15)
--- NOTE | 2019-06-13 07:14 | NUR ---
HAND-OFF: Report given to RODGER Bejarano.Patient in stable condition.
--- NOTE | 2019-06-13 07:30 | NUR ---
NURSE NOTES: Patient stable AOx4 with no complaints and no s/sx of distress. RR even and unlabored on 2L NC. Fluids and Zosyn infusing. Side rails upx2, call light within reach, bed low and locked. Will continue to monitor.
[2019-06-13 08:00] VITALS: BP 100/54
[2019-06-13] MEDS: Losartan 25mg tab ORAL SCH (09:00)
[2019-06-13] MEDS: Meloxicam 15 MG TAB ORAL SCH (09:14)
[2019-06-13] MEDS: Albuterol ud Inhalation HHN SCH (10:00)
--- NOTE | 2019-06-13 11:04 | Diagnostic Imaging Report ---
Indication: Chest pain, calf pain, shortness of breath Technique: Grayscale and duplex images of the bilateral lower extremity veins Comparison: none Findings: Bilaterally, grayscale and duplex images demonstrate no evidence of intraluminal thrombus. Normal phasic Doppler waveforms, demonstrating normal augmentation response and no evidence of valvular insufficiency. Patent greater saphenous vein and tibial veins. Normal compressibility Impression: Negative for evidence of lower extremity deep venous thrombosis bilaterally
[2019-06-13 11:59] LABS: HEMATOCRIT 35.8 % (37.0-47.0); HEMOGLOBIN 11.8 G/DL (12.0-16.0); MEAN CORPUSCULAR VOLUME 81 FL (80-99); PLATELET COUNT 323 K/UL (150-450); RED BLOOD COUNT 4.44 M/UL (4.20-5.40); RED CELL DISTRIBUTION WIDTH 13.3 % (11.6-14.8); WHITE BLOOD COUNT 21.2 K/UL (4.8-10.8)
[2019-06-13 12:00] VITALS: BP 103/56
[2019-06-13 12:14] LABS: ANION GAP 12 mmol/L (5-15); BLOOD UREA NITROGEN 34 mg/dL (7-18); CARBON DIOXIDE 21 MMOL/L (21-32); CHLORIDE 97 MMOL/L (98-107); CREATININE 1.8 MG/DL (0.55-1.30); POTASSIUM 4.3 MMOL/L (3.5-5.1); SODIUM 130 MMOL/L (136-145)
[2019-06-13] MEDS: Vancomycin 750mg/NS 275ml IVPB SCH ×2 (12:37)
[2019-06-13 16:00] VITALS: BP 133/71
--- NOTE | 2019-06-13 16:13 | General Progress Note ---
Assessment/Plan Assessment/Plan: #Acute hypoxic respiratory failure secondary to HAP and COPD exacerbation #Sepsis secondary to hospital-acquired pneumonia #COPD exacerbation #Recurrent COPD exacerbation #perihilar infiltrate (persistent on CXR from 04/2019) > Troponins negative -Blood Cultures x2 -Sputum culture -Urine Legionella -Solu-Medrol 40 mg every 6 hours -Vancomycin per pharmacy -Zosyn -Azithromycin -D-dimer: Elevated. Will d/w pulm regarding imaging for PE -Consider CT chest -TTE #Acute renal failure suspected secondary to dehydration -Continue IV fluids -Continue to avoid nephrotoxins -Trend creatinine -Check PVRs #Hypovolemic hyponatremia -Continue IV fluids -Continue to trend sodium #Microcytic anemia, history of being on chronic steroids -No signs of bleeding Continue to monitor #Diabetes mellitus type 2 Hold home oral hypoglycemics Lantus 8 units daily SSI Accuchecks Hypoglycemia protocol #Electrolyte abnormalities secondary to dehydration DVT PPx: HSQ Code status: Full 39 minutes spent on this encounter. Discussed with pulm and RN. > 50% spent on counseling and care coordination. I spent an additional 33 minutes reviewing medical records including prior hospitalization notes, clinic notes, consultation notes, prior labs, and prior imaging. Time of note may not reflect time patient was seen. Subjective Allergies: Coded Allergies: No Known Allergies (Verified , 04/13/08) Subjective Patient feels about the same today. Continues to be febrile to one 101.8. Continues to be on 2 L nasal cannula. Cough continues to be very productive of sputum. Denies any chest pain nausea vomiting or diarrhea. Review of systems: Constitutional: Denies: chills, diaphoresis, malaise, weakness, other + endorses fever HEENT: Denies: eye pain, blurred vision, tearing, double vision, ear pain, ear discharge, nose pain, nose congestion, throat pain, throat swelling, mouth pain , mouth swelling, Cardiovascular: Denies: chest pain, edema, lightheadedness, palpitations, syncope, Respiratory: Denies: .orthopnea, shortness of breath, SOB with excertion, SOB at rest, sputum, stridor, wheezing, other + Endorses cough, SOB Gastrointestinal/Abdominal: Denies: abdomen distended, abdominal pain, black stools, tarry stools, blood in stool, constipated, diarrhea, difficulty swallowing, nausea, poor appetite, poor fluid intake, rectal bleeding, vomiting , other Genitourinary: Denies: burning, discharge, frequency, flank pain, hematuria, incontinence, pain, urgency, other Neurologic/Psychiatric: Denies: anxiety, depressed, emotional problems, headache, numbness, paresthesia, pre-existing deficit, seizure, tingling, tremors, weakness, other Endocrine: Denies: excessive sweating, flushing, intolerance to cold, intolerance to heat, increased hunger, increased thirst, increased urine, unexplained weight gain, unexplained weight loss, other Hematologic/Lymphatic: Denies: anemia, easy bleeding, easy bruising, other Objective Last 24 Hour Vital Signs Date Time Temp Pulse Resp B/P (MAP) Pulse Ox O2 Delivery O2 Flow Rate FiO2 06/13/19 12:00 97.6 69 20 103/56 (72) 94 06/13/19 12:00 73 06/13/19 09:00 100/54 06/13/19 09:00 Nasal Cannula 2.0 06/13/19 08:00 97.8 69 20 100/54 (69) 100 06/13/19 08:00 69 06/13/19 06:00 98/56 06/13/19 04:00 98.8 79 16 118/60 (79) 95 06/13/19 04:00 68 06/13/19 00:00 98.5 84 15 126/57 (80) 94 06/13/19 00:00 78 06/12/19 23:19 126/57 06/12/19 21:00 Nasal Cannula 2.0 06/12/19 21:00 76 06/12/19 20:00 99.1 77 17 103/58 (73) 95 06/12/19 18:41 100.8 Intake and Output 06/12/19 06/13/19 19:00 07:00 Intake Total 1617 ml 1797.3 ml Balance 1617 ml 1797.3 ml Intake Oral 350 ml 360 ml IV Total 1267 ml 1437.3 ml # Voids 1 1 Laboratory Tests 06/13/19 11:50: White Blood Count 21.2H, Red Blood Count 4.44, Hemoglobin 11.8L, Hematocrit 35.8L, Mean Corpuscular Volume 81, Mean Corpuscular Hemoglobin 26.6L, Mean Corpuscular Hemoglobin Concent 32.9, Red Cell Distribution Width 13.3, Platelet Count 323, Mean Platelet Volume 5.4L, Neutrophils (%) (Auto) , Lymphocytes (%) ( Auto) , Monocytes (%) (Auto) , Eosinophils (%) (Auto) , Basophils (%) (Auto) , Differential Total Cells Counted 100, Neutrophils % (Manual) 91H, Lymphocytes % (Manual) 6L, Monocytes % (Manual) 3, Eosinophils % (Manual) 0, Basophils % ( Manual) 0, Band Neutrophils 0, Platelet Estimate Adequate, Platelet Morphology Normal, Red Blood Cell Morphology , Microcytosis 1+, D-Dimer 1.30H, Sodium Level 130L, Potassium Level 4.3, Chloride Level 97L, Carbon Dioxide Level 21, Anion Gap 12, Blood Urea Nitrogen 34H, Creatinine 1.8H, Estimat Glomerular Filtration Rate 27.8, Glucose Level 301#H, Calcium Level 8.0L Height (Feet): 5 Height (Inches): 9.00 Weight (Pounds): 180 Objective General: WDWN female in NAD, A&O x 4 HEENT: Normocephalic cephalic atraumatic, pupils equal round reactive to light and accommodation, nares patent and no symmetrical, no tonsillar exudates, mucous membranes moist CV: Regular rate regular rhythm, no murmurs, rubs, or gallops Pulm: Expiratory wheezing at bases bilaterally. No rhonchi, or rales GI: Soft, nontender, nondistended, bowel sounds present Neuro: CN 2-12 intact bilaterally, no focal signs. Ext: No lower extremity edema bilaterally Skin: no rashes lesions or ulcers Msk: Joints symmetrical in upper extremity and lower extremity bilaterally, no joint swelling. Lymph: No lymphadenopathy in upper extremity and lower extremity David Quintero D.O. Jun 13, 2019 16:13
[2019-06-13] MEDS: Levemir Flexpen SUBQ SCH (17:08)
--- NOTE | 2019-06-13 17:30 | NUR ---
NURSE NOTES: Patient voided. Specimen collected. Post void residual of 0mLs found on bladder scan.
--- NOTE | 2019-06-13 19:08 | NUR ---
CASE MANAGEMENT: REVIEW 69 YEAR OLD FEMALE PRESENTED TO ED FROM HOME CC: FLU LIKE SYMPTOMS . COUGH WITH PHLEGM . NO FEVER . NO TRAVEL OUT OF [place]: SEPSIS . PNA . UTI . COPD EXACERBATION T 98.8 HR 111 RR 26 BP 148/88 SAT 95% NC/2L WBC 31 NA 129 BUN 23 CR 1.5 BNP 143 IS: ZOSYN IV X1 NS IVF BOLUS X1 ZOFRAN IV X1 ALBUTEROL HHN X1 VANCO IV X1 LEVOFLOXACIN IV X1 PATIENT ADMITTED TO TELEMETRY UNIT 06/12/2019 DCP: PATIENT IS FROM HOME
--- NOTE | 2019-06-13 19:34 | NUR ---
HAND-OFF: Report given to Christina eMjia RN. Patient stable. Plan of care endorsed.
--- NOTE | 2019-06-13 19:35 | NUR ---
NURSE NOTES: Received report from RODGER Bejarano. Patient is in bed, awake and responsive. Breathing regular and unlabored with no S/S of SOB noted at this time. Patient remains on a 2L NC, with saturations in the 90's. Patient currently denies any pain or discomfort at this time. IV access is on the LFA, running fluids at prescribed rate as per MD orders. Bed is in lowest position, breaks engaged, and call light is within reach at all times. All other needs attended to, patient remains stable, will continue to monitor.
[2019-06-13 20:00] VITALS: BP 125/60
[2019-06-13] MEDS: Azithromycin 500 MG in D5W 275 ML IV SCH (21:16)
[2019-06-13] MEDS: TraZODone 100mg tab ORAL SCH (21:17)
[2019-06-13] MEDS: LORazepam 1mg tab ORAL PRN (21:18)
[2019-06-14] VITALS: BP 122/67
[2019-06-14 04:00] VITALS: BP 112/63
--- NOTE | 2019-06-14 05:32 | NUR ---
NURSE NOTES: Upon a transfer of a different patient to [facility], the patient forgot to call for help and got out of the bed to use the restroom forgetting she had IV fluids running and pulled the whole thing out. Other RN's and executive director of nursing helped the patient to and from the restroom, assuring she stable. When this RN returned, assessed the patient and patient stated "I just forgot i had the IV in for some reason." Re-inserted a new one, currently patent, intact, and running fluids as prescribed per MD. Patient is currently stable, will continue to monitor.
[2019-06-14] MEDS: Enalaprilat 2.5mg/2ml Inj IV SCH ×4 (05:54→17:43)
[2019-06-14] MEDS: Heparin 5000 units/ml inj SUBQ SCH ×3 (05:55→21:20)
[2019-06-14] MEDS: Piperacillin/Tazobactam 3.375 GM in NS 110 ML IVPB SCH ×3 (06:02→22:49)
[2019-06-14] MEDS: Solu-MEDROL 40mg Inj IVP SCH ×3 (06:02→17:43)
[2019-06-14] MEDS: NovoLOG Insulin Flexpen SUBQ SCH ×4 (06:03→21:29)
--- NOTE | 2019-06-14 07:18 | NUR ---
HAND-OFF: Report given to RODGER Bejarano. Patient remians stable, plan of care endorsed.
[2019-06-14 07:40] LABS: HEMOGLOBIN 10.7 G/DL (12.0-16.0); MEAN CORPUSCULAR VOLUME 80 FL (80-99); PLATELET COUNT 297 K/UL (150-450); RED BLOOD COUNT 3.99 M/UL (4.20-5.40); RED CELL DISTRIBUTION WIDTH 13.3 % (11.6-14.8); WHITE BLOOD COUNT 17.1 K/UL (4.8-10.8)
--- NOTE | 2019-06-14 07:40 | NUR ---
NURSE NOTES: Patient stable AOx4 with no complaints and no s/sx of distress. RR even and unlabored on 2L NC. Fluids and Zosyn infusing. Patient ambulated to restroom to void and noticed patient is markedly unsteady compared to yesterday. Bed alarm turned on and urged to call if she needed to get up. Side rails upx2, call light within reach, bed low and locked. Will continue to monitor.
[2019-06-14 08:00] VITALS: BP 121/70
[2019-06-14] MEDS: Albuterol ud Inhalation HHN SCH ×2 (08:03→10:00)
[2019-06-14 08:09] LABS: ANION GAP 12 mmol/L (5-15); BLOOD UREA NITROGEN 37 mg/dL (7-18); CARBON DIOXIDE 19 MMOL/L (21-32); CHLORIDE 100 MMOL/L (98-107); CREATININE 1.4 MG/DL (0.55-1.30); PHOSPHORUS 2.5 MG/DL (2.5-4.9); POTASSIUM 4.3 MMOL/L (3.5-5.1); SODIUM 131 MMOL/L (136-145)
[2019-06-14] MEDS: Meloxicam 15 MG TAB ORAL SCH (09:10)
[2019-06-14] MEDS: Losartan 25mg tab ORAL SCH (09:10)
--- NOTE | 2019-06-14 10:37 | NUR ---
NURSE NOTES: Notified at 0900 that pt is positive for VRE of the rectum. Dr. Hilton notified.
[2019-06-14 12:00] VITALS: BP 124/59
[2019-06-14] MEDS: Vancomycin 750mg/NS 275ml IVPB SCH ×2 (12:37)
--- NOTE | 2019-06-14 13:01 | Consultation ---
Consult Note Assessment/Plan DICT # [id number] Erik Chatterjee MD Jun 14, 2019 13:01
--- NOTE | 2019-06-14 14:26 | NUR ---
NURSE NOTES: Patient taken down for CT of chest.
--- NOTE | 2019-06-14 15:47 | Diagnostic Imaging Report ---
Clinical Indication: Shortness of breath, COPD exacerbation, abnormal recent chest radiograph Technique: Spiral acquisitions obtained through the chest. No IV contrast utilized, per referring physician request. Multiplanar reconstructions generated. Total dose length product 478 mGycm. CTDIvol(s) 11 mGy. Dose reduction achieved using automated exposure control Comparison: No comparison CT scans. Reference made to plain radiograph dated 06/12/2019 Findings:There is some image degradation due to respiratory motion artifact. There is an area of confluent opacity with central areas of bronchiectasis in the anteromedial left upper lobe. Inferiorly, this demonstrates some peripheral spiculation. There is a small focal area of scarring in the left lung apex. There is a mixture of hazy groundglass opacity and somewhat dense consolidation throughout much of the remainder of the left upper lobe. Numerous cystic spaces are seen in both lungs, with an upper lobe predominance. Atelectasis or scarring is seen in the right lower lobe. Dependent posterior atelectatic changes are seen bilaterally in the lower lobes. There is trace left pleural effusion No mediastinal or hilar mass or adenopathy. The included portion of the thyroid is unremarkable. No axillary or chest wall mass or adenopathy. No pericardial effusion. The heart size is normal. There are coronary artery calcifications. The main and right pulmonary arteries are ectatic. Included upper abdominal anatomy demonstrates a 2 cm cyst in the right hepatic lobe Impression: Confluent opacity with central areas of bronchiectasis in the anteromedial left lower lobe. This most likely represents an area of confluent scarring. However, dense consolidation, neoplasm are also possibilities. Hazy groundglass opacity throughout much of the left upper lobe. This could represent pulmonary edema, acute infiltrate, or postinflammatory change. Correlate with clinical findings Numerous cystic spaces in the bilateral lungs, likely represent a combination of bullous emphysema and cystic bronchiectasis Right lower lobe atelectasis or scarring, bilateral dependent atelectatic changes noted. Trace left pleural effusion Ectatic pulmonary arteries, consistent with pulmonary arterial hypertension Coronary artery calcifications Incidental finding of right lobe liver cyst The CT scanner at [facility] is accredited by the [employer] and the scans are performed using protocols designed to limit radiation exposure to as low as reasonably achievable to attain images of sufficient resolution adequate for diagnostic evaluation.
[2019-06-14 16:00] VITALS: BP 125/53
--- NOTE | 2019-06-14 16:39 | Diagnostic Imaging Report ---
Indications: Shortness of breath and COPD Technique: IV administration 5 mCi 99m technetium macroaggregated albumin. Images obtained over the lungs in multiple projections. Previously, patient inhaled 40 mCi aerosolized 99M technetium DTPA. Images obtained over the lungs in multiple projections Comparison: CT scan of the same day, chest radiograph of 06/12/2019 Findings: Tracer distribution on the aerosol images is markedly heterogeneous with considerable clumping of tracer in the airways, particularly within the bronchiectatic bronchi. On the perfusion images, tracer distribution is heterogeneous. There is an area of photopenia seen in the anterior left upper lobe that corresponds with a confluent opacity demonstrated on recent CT scan. No other definite segmental or subsegmental perfusion defects and no definite aerosol perfusion mismatch Impression: Findings deemed low probability for pulmonary embolus
--- NOTE | 2019-06-14 16:45 | Consultation ---
DATE OF CONSULTATION: 06/14/2019 PULMONARY CONSULTATION CONSULTING PHYSICIAN: Erik Chatterjee M.D. REFERRING PHYSICIAN: Emanuel Blum M.D. REASON FOR CONSULTATION: COPD exacerbation. HISTORY OF PRESENT ILLNESS: The patient is a 69-year-old female, former smoker with a history of COPD with multiple exacerbations, patient of Dr. Dimas Jasmine who presented to the ER with shortness of breath, cough, congestion, fever, and a new left lower lobe infiltrate. She had increased recent immobility and calf discomfort, so Doppler ultrasound was done to rule out DVT. The patient does not feel any improvement. She notes shortness of breath with even minimal exertion. No chest pain, wheezing, or hemoptysis. She is on formoterol, Perforomist nebulizer as well as Trelegy as part of her home regimen. PAST MEDICAL HISTORY: 1. COPD. 2. Anxiety. 3. Hypertension. 4. Diabetes. 5. GERD. ALLERGIES: No known drug allergies. MEDICATIONS: Prior to admission medications reviewed. Current medications reviewed. REVIEW OF SYSTEMS: Review of systems negative other than history of present illness. PHYSICAL EXAMINATION: VITAL SIGNS: Temperature 97.1, pulse 70, blood pressure 120/70, respiratory rate 20, and saturating 98% on two liters. GENERAL: She is a well-developed and well-nourished female, in no acute distress. Awake, alert, and oriented x3. HEENT: Normocephalic and atraumatic. Oropharynx is clear with moist mucous membranes. NECK: Supple without lymphadenopathy or JVD. CHEST: Scattered coarse breath sounds with end-expiratory wheezing. HEART: Regular rate and rhythm. ABDOMEN: Soft, nontender, and nondistended. EXTREMITIES: No cyanosis, clubbing or edema. ANCILLARY DATA: Chest x-ray from 06/12/2019 shows a left perihilar opacity with some atelectasis at the left base. Duplex ultrasound 06/12/2019 shows no evidence of lower extremity DVT. ASSESSMENT: The patient is a 69-year-old female with a history of COPD, former smoker, hypertension, GERD, diabetes, and hypothyroidism presenting with shortness of breath in the setting of COPD exacerbation, possible left lower lobe pneumonia. Given persistent infiltrates, she will need . She also has an elevated D-dimer and a negative duplex and will require to be ruled out for PE. However, she had acute kidney injury thus we will get a noncontrast CT of the chest and V/Q scan. PROBLEM LIST: 1. COPD with acute exacerbation. 2. Left perihilar opacity, pulmonary infiltrate versus other. 3. Possible community-acquired pneumonia. 4. Elevated D-dimer with negative duplex, concern for venous thromboembolism. 5. Acute kidney injury, likely secondary to dehydration. 6. Hypertension. 7. GERD. 8. Hypothyroidism. 9. Anxiety. 10. Anemia. TREATMENT PLAN: 1. Optimize pulmonary hygiene/mobilize as tolerated. 2. Titrate down FiO2 to keep saturations greater than 90%. 3. The patient may use her own Trelegy and Perforomist in the hospital. 4. Continue Solu-Medrol 40 mg IV every 6 hours, we will taper based on response. 5. Wqpel-amn-mlidq and p.r.n. DuoNebs. 6. Continue Zosyn and azithromycin, we will discontinue vancomycin given negative MRSA swab. If concern for worsening infection, can have Zyvox given positive VRE colonization. 7. Monitor volumes and renal function, cautious hydration as needed. 8. V/Q scan pending. 9. Noncontrast CT of the chest is pending. 10. DVT prophylaxis with heparin subcutaneous. 11. Continue to encourage abstinence from tobacco use. 12. I will discuss the case with the patient's primary certified hyperbaric technician, Dr. Shubham Jasmine as well. Erik Chatterjee M.D. DR: Roge JOB#: [id number] CC:
--- NOTE | 2019-06-14 16:50 | General Progress Note ---
Assessment/Plan Assessment/Plan: #Acute hypoxic respiratory failure secondary to HAP and COPD exacerbation #Sepsis secondary to hospital-acquired pneumonia #COPD exacerbation #Recurrent COPD exacerbation #perihilar infiltrate (persistent on CXR from 04/2019) > Troponins negative -Blood Cultures x2: NGTD -Sputum culture: pending -Urine Legionella -Solu-Medrol 40 mg every 6 hours -Vancomycin per pharmacy -Zosyn -Azithromycin -D-dimer: Elevated. Will obtain VQ scan -CT chest non-contrast today -TTE -Appreciate pulmonology recommendations: Dr. Chatterjee -Extensive discussion regarding plan of care, goals, diagnosis with patient on . All questions answered #Acute renal failure suspected secondary to dehydration -Continue IV fluids -Continue to avoid nephrotoxins -Trend creatinine -Check PVRs #Hypovolemic hyponatremia -Continue IV fluids -Continue to trend sodium #Microcytic anemia, history of being on chronic steroids -No signs of bleeding Continue to monitor #Diabetes mellitus type 2 Hold home oral hypoglycemics Lantus 8 units daily SSI, average Accuchecks Hypoglycemia protocol #Electrolyte abnormalities secondary to dehydration DVT PPx: HSQ Code status: Full 40 minutes spent on this encounter. Discussed with pulm and RN. > 50% spent on counseling and care coordination. I spent an additional 32 minutes reviewing medical records including prior hospitalization notes, clinic notes, consultation notes, prior labs, and prior imaging. Time of note may not reflect time patient was seen. Subjective Allergies: Coded Allergies: No Known Allergies (Verified , 04/13/08) Subjective Patient feels about the same today. Require oxygen. Overall she is only slightly improved. Vital signs are stable. Pulmonology recommending CT chest noncontrast and V/Q scan.Cough continues to be very productive of sputum. Denies any chest pain nausea vomiting or diarrhea. Review of systems: Constitutional: Denies: chills, diaphoresis, malaise, weakness, other + endorses fever HEENT: Denies: eye pain, blurred vision, tearing, double vision, ear pain, ear discharge, nose pain, nose congestion, throat pain, throat swelling, mouth pain , mouth swelling, Cardiovascular: Denies: chest pain, edema, lightheadedness, palpitations, syncope, Respiratory: Denies: .orthopnea, stridor, wheezing, other + Endorses cough, shortness of breath, SOB with excertion, SOB at rest, sputum, Gastrointestinal/Abdominal: Denies: abdomen distended, abdominal pain, black stools, tarry stools, blood in stool, constipated, diarrhea, difficulty swallowing, nausea, poor appetite, poor fluid intake, rectal bleeding, vomiting , other Genitourinary: Denies: burning, discharge, frequency, flank pain, hematuria, incontinence, pain, urgency, other Neurologic/Psychiatric: Denies: anxiety, depressed, emotional problems, headache, numbness, paresthesia, pre-existing deficit, seizure, tingling, tremors, weakness, other Endocrine: Denies: excessive sweating, flushing, intolerance to cold, intolerance to heat, increased hunger, increased thirst, increased urine, unexplained weight gain, unexplained weight loss, other Hematologic/Lymphatic: Denies: anemia, easy bleeding, easy bruising, other Objective Last 24 Hour Vital Signs Date Time Temp Pulse Resp B/P (MAP) Pulse Ox O2 Delivery O2 Flow Rate FiO2 06/14/19 12:00 97.7 84 20 124/59 (80) 95 06/14/19 12:00 70 06/14/19 09:10 121/70 06/14/19 08:04 Nasal Cannula 2.0 06/14/19 08:00 77 06/14/19 08:00 97.1 70 20 121/70 (87) 97 06/14/19 04:00 52 06/14/19 04:00 97.2 89 20 112/63 (79) 98 06/14/19 00:00 86 06/14/19 00:00 97.5 97 16 122/67 (85) 98 06/13/19 21:00 Nasal Cannula 2.0 06/13/19 20:00 70 06/13/19 20:00 97.0 67 16 125/60 (81) 98 06/13/19 17:07 133/71 Intake and Output 06/13/19 06/14/19 19:00 07:00 Intake Total 600 ml 260 ml Balance 600 ml 260 ml Intake Oral 600 ml 260 ml # Voids 3 3 Laboratory Tests 06/13/19 18:30: Urine Legionella Antigen [Pending] 06/14/19 06:11: White Blood Count 17.1H, Red Blood Count 3.99L, Hemoglobin 10.7L, Hematocrit 32.0L, Mean Corpuscular Volume 80, Mean Corpuscular Hemoglobin 26.7L, Mean Corpuscular Hemoglobin Concent 33.3, Red Cell Distribution Width 13.3, Platelet Count 297, Mean Platelet Volume 5.7L, Neutrophils (%) (Auto) , Lymphocytes (%) ( Auto) , Monocytes (%) (Auto) , Eosinophils (%) (Auto) , Basophils (%) (Auto) , Differential Total Cells Counted 100, Neutrophils % (Manual) 92H, Lymphocytes % (Manual) 3L, Monocytes % (Manual) 5, Eosinophils % (Manual) 0, Basophils % ( Manual) 0, Band Neutrophils 0, Platelet Estimate Adequate, Platelet Morphology Normal, Sodium Level 131L, Potassium Level 4.3, Chloride Level 100, Carbon Dioxide Level 19L, Anion Gap 12, Blood Urea Nitrogen 37H, Creatinine 1.4H, Estimat Glomerular Filtration Rate 37.2, Glucose Level 247H, Calcium Level 8.0L , Phosphorus Level 2.5, Magnesium Level 2.5H Height (Feet): 5 Height (Inches): 9.00 Weight (Pounds): 180 Objective General: WDWN female in NAD, A&O x 4 HEENT: Normocephalic cephalic atraumatic, pupils equal round reactive to light and accommodation, nares patent and no symmetrical, no tonsillar exudates, mucous membranes moist CV: Regular rate regular rhythm, no murmurs, rubs, or gallops Pulm: Diffuse exxpiratory wheezing at bases bilaterally. No rhonchi, or rales GI: Soft, nontender, nondistended, bowel sounds present Neuro: CN 2-12 intact bilaterally, no focal signs. Ext: No lower extremity edema bilaterally Skin: no rashes lesions or ulcers Msk: Joints symmetrical in upper extremity and lower extremity bilaterally, no joint swelling. Lymph: No lymphadenopathy in upper extremity and lower extremity David Quintero D.O. Jun 14, 2019 16:50
[2019-06-14] MEDS: Levemir Flexpen SUBQ SCH (17:44)
--- NOTE | 2019-06-14 19:35 | NUR ---
NURSE NOTES: Received report from RODGER Bejarano. Patient is in bed, awake and responsive. Breathing regular and unlabored with no S/S of SOB noted at this time. Patient remains on a 2L NC. Patient currently denies any pain or discomfort at this time. IV access remains on the L hand 22G, patent, intact, and running fluids at prescribed rate. Bed remains in lowest position, breaks engaged, and call light is within reach at all times. All other needs attended to, patient remains in stable condition, will continue to monitor.
[2019-06-14 20:00] VITALS: BP 140/73
--- NOTE | 2019-06-14 20:01 | NUR ---
HAND-OFF: Report given to Christina SOARES. Patient stable. Plan of care endorsed.
[2019-06-14] MEDS: TraZODone 100mg tab ORAL SCH (21:20)
[2019-06-14] MEDS: Azithromycin 500 MG in D5W 275 ML IV SCH (21:20)
[2019-06-14] MEDS: LORazepam 1mg tab ORAL PRN (22:06)
[2019-06-15] VITALS: BP 146/79
[2019-06-15] MEDS: Solu-MEDROL 40mg Inj IVP SCH ×4 (00:45→18:30)
[2019-06-15 04:00] VITALS: BP 152/74
[2019-06-15] MEDS: Piperacillin/Tazobactam 3.375 GM in NS 110 ML IVPB SCH ×3 (05:56→22:07)
[2019-06-15] MEDS: Heparin 5000 units/ml inj SUBQ SCH ×3 (06:00→21:46)
[2019-06-15] MEDS: NovoLOG Insulin Flexpen SUBQ SCH ×6 (06:01→21:47)
[2019-06-15] MEDS: Enalaprilat 2.5mg/2ml Inj IV SCH ×4 (06:02→18:30)
--- NOTE | 2019-06-15 07:27 | NUR ---
NURSE NOTES: pt awake in bed AOx4, no complains of pain. Pt on desk monitor no signs of cardiac or respiratory distress at this time. Call light within reach. Bed is locked and in lowest position. Will continue to follow plans of care.
--- NOTE | 2019-06-15 07:31 | NUR ---
HAND-OFF: Report given to RODGER Voss. Patient in stable condition, plan of care endorsed.
[2019-06-15 07:34] LABS: HEMOGLOBIN 10.2 G/DL (12.0-16.0); MEAN CORPUSCULAR VOLUME 79 FL (80-99); PLATELET COUNT 323 K/UL (150-450); RED BLOOD COUNT 3.79 M/UL (4.20-5.40); RED CELL DISTRIBUTION WIDTH 13.2 % (11.6-14.8); WHITE BLOOD COUNT 14.9 K/UL (4.8-10.8)
[2019-06-15 08:02] LABS: ANION GAP 11 mmol/L (5-15); BLOOD UREA NITROGEN 35 mg/dL (7-18); CALCIUM 7.9 MG/DL (8.5-10.1); CARBON DIOXIDE 22 MMOL/L (21-32); CHLORIDE 105 MMOL/L (98-107); CREATININE 1.2 MG/DL (0.55-1.30); PHOSPHORUS 2.1 MG/DL (2.5-4.9); POTASSIUM 4.1 MMOL/L (3.5-5.1); SODIUM 138 MMOL/L (136-145)
[2019-06-15 08:35] VITALS: BP 157/75
[2019-06-15] MEDS: Albuterol ud Inhalation HHN SCH ×2 (09:02→22:00)
[2019-06-15] MEDS: Losartan 25mg tab ORAL SCH (09:09)
[2019-06-15] MEDS: Meloxicam 15 MG TAB ORAL SCH (09:10)
[2019-06-15] MEDS ORDERED: Sodium Phosphate 15 MM in NS 275 ML IVPB ONE (11:30)
[2019-06-15 12:00] VITALS: BP 156/94
--- NOTE | 2019-06-15 12:01 | NUR ---
CASE MANAGEMENT: REVIEW 06/15/19 SI: ELEVATED D-DIMER ACUTE HYPOXIA RESP FAILURE . SEPSIS . PNA . UTI . COPD EXACERBATION . LEFT PLEURAL EFFUSION 97.6 75 18 157/75 98% NC/2L WBC 14.9 H/H 10.2/30 BUN 35 BG 194 CA+ 7.9 PHOS 2.1 MG 2.5 IS: IV NS 50ML/HR IV ZOSYN Q8HR IV VANCOMYCIN Q24HR IV ZITHROMAX Q24 X 7BAGS IV SOLU-MEDROL Q6HR MOBIC PO QD COZAAR PO QD IV VASOTEC Q6HR NOVOLOG SQ AC&HS LEVEMIR SQ Q24HR PROTONIX PO QD \: 2E TELEMETRY UNIT DCP: PATIENT IS FROM HOME PLAN: VQ SCAN - LOW PROBABILITY FOR PE STOOL OB- PENDING URINE LEGIONELLA Ag- PENDING CT CHEST- TRACE PLEURAL EFFUSION
[2019-06-15] MEDS ORDERED: Vancomycin 1 GM in NS 275 ML IVPB SCH (15:00)
[2019-06-15 16:00] VITALS: BP 170/88
[2019-06-15] MEDS: Levemir Flexpen SUBQ SCH (18:34)
--- NOTE | 2019-06-15 18:55 | Pulmonology Progress Note ---
Assessment/Plan Problems: (1) COPD (chronic obstructive pulmonary disease) (2) Lobular pneumonia (3) Ground glass opacity present on imaging of lung (4) Bronchiectasis (5) Renal insufficiency Assessment/Plan ASSESSMENT: The patient is a 69-year-old female with a history of COPD, former smoker, hypertension, GERD, diabetes, and hypothyroidism presenting with shortness of breath in the setting of COPD exacerbation, possible left lower lobe pneumonia. PROBLEM LIST: 1. COPD with acute exacerbation. 2. LLL confluent opacity, scarring in the setting of bxtsis vs PNA vs neoplasm 3. RUL GGO 4. Elevated D-dimer S/P neg duplex and LP VQ 5. Acute kidney injury - RESOLVED 7. GERD. 8. Hypothyroidism. 9. Anxiety. 10. Anemia. TREATMENT PLAN: 1. Optimize pulmonary hygiene/mobilize as tolerated. 2. Titrate down FiO2 to keep saturations greater than 90%. 3. The patient may use her own Trelegy and Perforomist in the hospital. 4. Decrease Solu-Medrol to 40 mg IV every BID and taper based on response. 5. Zfyjd-sdi-axzkn and p.r.n. DuoNebs. 6. Continue Zosyn and azithromycin 7. Monitor volumes and renal function, cautious hydration as needed. 8. DVT prophylaxis with heparin subcutaneous. 9. Continue to encourage abstinence from tobacco use. 10. I have discussed the case with the patient's primary pole setter, Dr. Shubham Jasmine ---> she will follow up with him post discharge, will have a PET/CT @ [facility] and based on findings may or may not need a lung biopsy Subjective Allergies: Coded Allergies: No Known Allergies (Verified , 04/13/08) Subjective AFVSS x elevated BP O2 needs stable VQ LP CT with confluent LLL opacity with central bxtsis and PRUDENCE GGO + cystic/emphysematous changes + SOB + cough no FC no CP slightly improved Objective Last 24 Hour Vital Signs Date Time Temp Pulse Resp B/P (MAP) Pulse Ox O2 Delivery O2 Flow Rate FiO2 06/15/19 18:30 170/88 06/15/19 16:00 97.5 73 18 170/88 (115) 99 06/15/19 13:37 157/75 06/15/19 12:00 97.6 68 18 156/94 (114) 97 06/15/19 10:36 Nasal Cannula 2.0 06/15/19 09:09 157/75 06/15/19 08:35 97.6 75 18 157/75 (102) 98 06/15/19 08:00 68 06/15/19 06:02 154/81 06/15/19 04:00 54 06/15/19 04:00 97.7 63 20 152/74 (100) 95 06/15/19 00:00 95.5 66 20 146/79 (101) 97 06/15/19 00:00 60 06/14/19 21:00 Nasal Cannula 2.0 06/14/19 20:00 97.8 66 20 140/73 (95) 97 06/14/19 20:00 69 Intake and Output 06/14/19 06/15/19 19:00 07:00 Intake Total 800 ml Balance 800 ml Intake Oral 800 ml # Voids 5 2 General Appearance: WD/WN, no acute distress HEENT: normocephalic, atraumatic, anicteric, mucous membranes moist Respiratory/Chest: rhonchi Cardiovascular: normal peripheral pulses, normal rate, regular rhythm Abdomen: normal bowel sounds, soft, non tender, no organomegaly, non distended , no mass Extremities: no cyanosis, no clubbing, no edema Laboratory Tests 06/15/19 06:19: White Blood Count 14.9H, Red Blood Count 3.79L, Hemoglobin 10.2L, Hematocrit 30.0L, Mean Corpuscular Volume 79L, Mean Corpuscular Hemoglobin 26.8L, Mean Corpuscular Hemoglobin Concent 33.8, Red Cell Distribution Width 13.2, Platelet Count 323, Mean Platelet Volume 5.6L, Neutrophils (%) (Auto) , Lymphocytes (%) ( Auto) , Monocytes (%) (Auto) , Eosinophils (%) (Auto) , Basophils (%) (Auto) , Differential Total Cells Counted 100, Neutrophils % (Manual) 87H, Lymphocytes % (Manual) 9L, Monocytes % (Manual) 4, Eosinophils % (Manual) 0, Basophils % ( Manual) 0, Band Neutrophils 0, Platelet Estimate Adequate, Platelet Morphology Normal, Hypochromasia 1+, Anisocytosis 1+, Microcytosis 1+, Spherocytes 1+, Sodium Level 138, Potassium Level 4.1, Chloride Level 105, Carbon Dioxide Level 22, Anion Gap 11, Blood Urea Nitrogen 35H, Creatinine 1.2, Estimat Glomerular Filtration Rate 44.4, Glucose Level 194H, Calcium Level 7.9L, Phosphorus Level 2.1L, Magnesium Level 2.5H, Ferritin 141 06/15/19 10:45: Stool Occult Blood [Pending] 06/15/19 11:00: Vancomycin Level Trough 9.3 Current Medications Medications (Trade) Dose Ordered Sig/[place] Route PRN Reason Start Time Stop Time Status Last Admin Dose Admin Acetaminophen (Tylenol) 650 mg Q6H PRN ORAL Mild Pain/Temp > 100.5 06/12/19 16:30 07/12/19 16:29 06/12/19 16:39 Acetaminophen/ Hydrocodone Bitart ([place] 10) 1 tab Q4H PRN ORAL PAIN 4-10 06/12/19 16:30 06/19/19 16:29 06/13/19 23:41 Albuterol Sulfate (Proventil) 0.63 mg BIDRT HHN 06/13/19 10:00 06/18/19 09:59 Azithromycin (Zithromax) 500 mg QHS ORAL 06/15/19 21:00 06/18/19 22:00 Dextrose (Dextrose 50%) 25 ml Q30M PRN IV Hypoglycemia 06/14/19 10:30 07/14/19 10:29 Dextrose (Dextrose 50%) 50 ml Q30M PRN IV Hypoglycemia 06/14/19 10:30 07/14/19 10:29 Enalaprilat (Vasotec) 2.5 mg EVERY 6 HOURS IV 06/13/19 00:00 07/13/19 00:00 06/15/19 18:30 Heparin Sodium (Porcine) (Heparin 5000 units/ml) 5,000 units EVERY 8 HOURS SUBQ 06/12/19 22:00 07/12/19 21:59 06/13/19 21:18 Insulin Aspart (NovoLOG) BEFORE MEALS AND HS SUBQ 06/14/19 12:30 07/14/19 12:29 06/15/19 18:33 Insulin Aspart (NovoLOG) 3 units NOVOTIAC SUBQ 06/15/19 11:50 07/15/19 11:49 06/15/19 18:32 Insulin Detemir (Levemir) 8 units Q24H SUBQ 06/13/19 18:00 07/13/19 17:59 06/15/19 18:34 Levothyroxine Sodium (Synthroid) 150 mcg ACBREAKFAST ORAL 06/13/19 06:30 07/13/19 06:29 06/15/19 05:56 Lorazepam (Ativan) 1 mg HSPRN PRN ORAL FOR ANXIETY/INSOMNIA 06/12/19 21:00 06/19/19 20:59 06/14/19 22:06 Losartan Potassium (Cozaar) 25 mg DAILY ORAL 06/13/19 09:00 07/13/19 08:59 06/15/19 09:09 Meloxicam (Mobic) 15 mg DAILY ORAL 06/13/19 09:00 07/13/19 08:59 06/15/19 09:10 Methylprednisolone Sodium Succinate (Solu-MEDROL) 40 mg EVERY 6 HOURS IVP 06/13/19 00:00 07/13/19 00:00 06/15/19 18:30 Ondansetron HCl (Zofran) 4 mg Q6H PRN IVP Nausea & Vomiting 06/12/19 16:30 07/12/19 16:29 06/12/19 16:38 Pantoprazole (Protonix) 40 mg DAILY@0630 ORAL 06/13/19 06:30 07/13/19 06:29 06/15/19 05:56 Piperacillin Sod/ Tazobactam Sod 3.375 gm/Sodium Chloride 110 ml @ 27.5 mls/hr EVERY 8 HOURS IVPB 06/12/19 22:00 06/17/19 21:59 06/15/19 15:21 Sodium Chloride 1,000 ml @ 50 mls/hr Q20H IV 06/14/19 15:37 07/14/19 15:36 06/14/19 16:29 Trazodone HCl (Desyrel) 600 mg BEDTIME ORAL 06/13/19 21:00 07/13/19 20:59 06/14/19 21:20 Vancomycin HCl (Vanco rx to dose) 1 ea DAILY PRN MISC Per rx protocol 06/12/19 21:00 07/12/19 20:59 Vancomycin HCl 1 gm/Sodium Chloride 275 ml @ 183.708 mls/hr Q24H IVPB 06/15/19 15:00 06/20/19 14:59 06/15/19 15:54 Erik Chatterjee MD Jun 15, 2019 18:55
--- NOTE | 2019-06-15 19:30 | NUR ---
HAND-OFF: Report given to Luz/RODGER, pt in stable condition.
--- NOTE | 2019-06-15 19:35 | NUR ---
NURSE NOTES: Received report from RODGER Voss. Patient is awake in bed with daughter sitting by her side. There are no signs of distress or pain noted at this time. She is AO x4. She is able to ambulate with assistance. Checked IV site, patent and flushed with no signs of infiltration, erythema, or bleeding. Bed in the lowest position with brakes on and siderails up x 3. Call light within reach. Will continue plan of care.
--- NOTE | 2019-06-15 19:51 | General Progress Note ---
Assessment/Plan Assessment/Plan: #Acute hypoxic respiratory failure secondary to HAP and COPD exacerbation- Slowly improving #Sepsis secondary to hospital-acquired pneumonia #COPD exacerbation #Recurrent COPD exacerbation #perihilar infiltrate (persistent on CXR from 04/2019) > Troponins negative -Blood Cultures x2: NGTD -Sputum culture: pending -Urine Legionella -Solu-Medrol 40 mg every 6 hours -Discontinue vancomycin per pharmacy on 06/15/19 -Continue Zosyn -Continue Azithromycin -D-dimer: Elevated. Will obtain VQ scan: low probability. No need for further imaging per pulmonology -CT chest non-contrast today: LLL mass, possible neoplasm vs. consolidation -Extensive discussion with patient informing her of the findings and plan of care. 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 No need for inpatient workup per Pulm. Patient will make an appointment to follow-up on CT scan results. All questions answered. -TTE -Appreciate pulmonology recommendations: Dr. Chatterjee -Extensive discussion regarding plan of care, goals, diagnosis with patient on . All questions answered #Acute renal failure suspected secondary to dehydration -Continue IV fluids -Continue to avoid nephrotoxins -Trend creatinine -Check PVRs #Hypovolemic hyponatremia -Continue IV fluids -Continue to trend sodium #Microcytic anemia, history of being on chronic steroids -No signs of bleeding Continue to monitor -Informed Patient of anemia and need to follow-up with PCP for further workup. Patient will make appointment within one week. #Diabetes mellitus type 2 Hold home oral hypoglycemics Lantus 8 units daily Start aspart 3 units 3 times daily with meals SSI, average Accuchecks Hypoglycemia protocol #Electrolyte abnormalities secondary to dehydration DVT PPx: HSQ Code status: Full 38 minutes spent on this encounter. Discussed with pulm and RN. > 50% spent on counseling and care coordination. I spent an additional 32 minutes of further face to face time on counseling and care coordination in addition to usual care as detailed above. Time of note may not reflect time patient was seen. Subjective Date patient seen: Jun 15, 2019 Allergies: Coded Allergies: No Known Allergies (Verified , 04/13/08) Subjective Patient feels about the same today. Overall Feels slightly better. Still requiring oxygen. Vital signs are stable. Denies any chest pain nausea vomiting or diarrhea. Review of systems: Constitutional: Denies: chills, diaphoresis, malaise, weakness, other + endorses fever HEENT: Denies: eye pain, blurred vision, tearing, double vision, ear pain, ear discharge, nose pain, nose congestion, throat pain, throat swelling, mouth pain , mouth swelling, Cardiovascular: Denies: chest pain, edema, lightheadedness, palpitations, syncope, Respiratory: Denies: .orthopnea, stridor, wheezing, other + Endorses cough ( unchanged) shortness of breath, SOB with excertion, SOB at rest, sputum, Gastrointestinal/Abdominal: Denies: abdomen distended, abdominal pain, black stools, tarry stools, blood in stool, constipated, diarrhea, difficulty swallowing, nausea, poor appetite, poor fluid intake, rectal bleeding, vomiting , other Genitourinary: Denies: burning, discharge, frequency, flank pain, hematuria, incontinence, pain, urgency, other Neurologic/Psychiatric: Denies: anxiety, depressed, emotional problems, headache, numbness, paresthesia, pre-existing deficit, seizure, tingling, tremors, weakness, other Endocrine: Denies: excessive sweating, flushing, intolerance to cold, intolerance to heat, increased hunger, increased thirst, increased urine, unexplained weight gain, unexplained weight loss, other Hematologic/Lymphatic: Denies: anemia, easy bleeding, easy bruising, other Objective Last 24 Hour Vital Signs Date Time Temp Pulse Resp B/P (MAP) Pulse Ox O2 Delivery O2 Flow Rate FiO2 06/15/19 18:30 170/88 06/15/19 16:00 97.5 73 18 170/88 (115) 99 06/15/19 13:37 157/75 06/15/19 12:00 97.6 68 18 156/94 (114) 97 06/15/19 10:36 Nasal Cannula 2.0 06/15/19 09:09 157/75 06/15/19 08:35 97.6 75 18 157/75 (102) 98 06/15/19 08:00 68 06/15/19 06:02 154/81 06/15/19 04:00 54 06/15/19 04:00 97.7 63 20 152/74 (100) 95 06/15/19 00:00 95.5 66 20 146/79 (101) 97 06/15/19 00:00 60 06/14/19 21:00 Nasal Cannula 2.0 06/14/19 20:00 97.8 66 20 140/73 (95) 97 06/14/19 20:00 69 Intake and Output 06/14/19 06/15/19 19:00 07:00 Intake Total 800 ml Balance 800 ml Intake Oral 800 ml # Voids 5 2 Laboratory Tests 06/15/19 06:19: White Blood Count 14.9H, Red Blood Count 3.79L, Hemoglobin 10.2L, Hematocrit 30.0L, Mean Corpuscular Volume 79L, Mean Corpuscular Hemoglobin 26.8L, Mean Corpuscular Hemoglobin Concent 33.8, Red Cell Distribution Width 13.2, Platelet Count 323, Mean Platelet Volume 5.6L, Neutrophils (%) (Auto) , Lymphocytes (%) ( Auto) , Monocytes (%) (Auto) , Eosinophils (%) (Auto) , Basophils (%) (Auto) , Differential Total Cells Counted 100, Neutrophils % (Manual) 87H, Lymphocytes % (Manual) 9L, Monocytes % (Manual) 4, Eosinophils % (Manual) 0, Basophils % ( Manual) 0, Band Neutrophils 0, Platelet Estimate Adequate, Platelet Morphology Normal, Hypochromasia 1+, Anisocytosis 1+, Microcytosis 1+, Spherocytes 1+, Sodium Level 138, Potassium Level 4.1, Chloride Level 105, Carbon Dioxide Level 22, Anion Gap 11, Blood Urea Nitrogen 35H, Creatinine 1.2, Estimat Glomerular Filtration Rate 44.4, Glucose Level 194H, Calcium Level 7.9L, Phosphorus Level 2.1L, Magnesium Level 2.5H, Ferritin 141 06/15/19 10:45: Stool Occult Blood [Pending] 06/15/19 11:00: Vancomycin Level Trough 9.3 Height (Feet): 5 Height (Inches): 9.00 Weight (Pounds): 227 Objective General: WDWN female in NAD, A&O x 4 HEENT: Normocephalic cephalic atraumatic, pupils equal round reactive to light and accommodation, nares patent and no symmetrical, no tonsillar exudates, mucous membranes moist CV: Regular rate regular rhythm, no murmurs, rubs, or gallops Pulm: Diffuse exxpiratory wheezing at bases bilaterally (slightly improved). No rhonchi, or rales GI: Soft, nontender, nondistended, bowel sounds present Neuro: CN 2-12 intact bilaterally, no focal signs. Ext: No lower extremity edema bilaterally Skin: no rashes lesions or ulcers Msk: Joints symmetrical in upper extremity and lower extremity bilaterally, no joint swelling. Lymph: No lymphadenopathy in upper extremity and lower extremity David Quintero D.O. Jun 15, 2019 19:51
[2019-06-15 20:00] VITALS: BP 181/89
[2019-06-15] MEDS ORDERED: Azithromycin 500 MG in NS 275 ML IV SCH (20:00)
--- NOTE | 2019-06-15 20:34 | NUR ---
NURSE NOTES: Called Dr. Blum's exchange regarding patient's bp of 181/89. Awaiting callback.
--- NOTE | 2019-06-15 20:44 | NUR ---
NURSE NOTES: Received order from Dr. Jones, covering MD for Dr. Blum, for Hydralazine 10mg IV q8hr for SBP > 160 and to hold patient's Triamterene/Hydochlorothiazide medication at this time. Noted and carried out.
[2019-06-15] MEDS: LORazepam 1mg tab ORAL PRN (21:46)
[2019-06-15] MEDS: TraZODone 100mg tab ORAL SCH (21:46)
[2019-06-15] MEDS: Azithromycin 250mg tab ORAL SCH (21:46)
[2019-06-16] VITALS: BP 201/86
[2019-06-16] MEDS: Enalaprilat 2.5mg/2ml Inj IV SCH ×4 (00:28→18:20)
[2019-06-16 04:00] VITALS: BP 135/82
[2019-06-16] MEDS: NovoLOG Insulin Flexpen SUBQ SCH ×7 (06:19→22:05)
[2019-06-16] MEDS: Piperacillin/Tazobactam 3.375 GM in NS 110 ML IVPB SCH ×3 (06:20→21:57)
[2019-06-16] MEDS: Heparin 5000 units/ml inj SUBQ SCH ×3 (06:23→22:00)
--- NOTE | 2019-06-16 07:25 | NUR ---
NURSE NOTES: pt in bed awake and about to have breakfast. Pt is not complaining of pain at this time. Pt asked to be disconnected from IV fluids, stating she does not want to be peeing too much is overwhelming. pt has hall monitor, no signs of cardiac or respiratory distress at this time. Call light within reach. Bed is locked and in lowest position. Will continue to monitor pt.
[2019-06-16 07:28] LABS: BASOPHILS % (AUTO) 0.4 % (0.0-2.0); HEMATOCRIT 32.7 % (37.0-47.0); LYMPHOCYTES % (AUTO) 15.1 % (20.0-45.0); MEAN CORPUSCULAR VOLUME 78 FL (80-99); MONOCYTES % (AUTO) 9.9 % (1.0-10.0); NEUTROPHILS % (AUTO) 74.5 % (45.0-75.0); PLATELET COUNT 405 K/UL (150-450); RED BLOOD COUNT 4.17 M/UL (4.20-5.40); WHITE BLOOD COUNT 14.5 K/UL (4.8-10.8)
--- NOTE | 2019-06-16 07:31 | NUR ---
HAND-OFF: Report given to RODGER Voss. Patient awake in bed with no signs of distress or pain.
[2019-06-16 08:00] VITALS: BP 158/93
[2019-06-16 08:14] LABS: ANION GAP 9 mmol/L (5-15); BLOOD UREA NITROGEN 28 mg/dL (7-18); CALCIUM 8.1 MG/DL (8.5-10.1); CARBON DIOXIDE 27 MMOL/L (21-32); CHLORIDE 105 MMOL/L (98-107); CREATININE 1.1 MG/DL (0.55-1.30); POTASSIUM 3.5 MMOL/L (3.5-5.1); SODIUM 141 MMOL/L (136-145)
[2019-06-16] MEDS: Meloxicam 15 MG TAB ORAL SCH (09:23)
[2019-06-16] MEDS: Solu-MEDROL 40mg Inj IVP SCH ×2 (09:23→18:20)
[2019-06-16] MEDS: Losartan 25mg tab ORAL SCH (09:23)
[2019-06-16] MEDS: Albuterol ud Inhalation HHN SCH ×2 (11:01→22:00)
[2019-06-16] MEDS: Triamterene/Hctz 37.5/25 cap ORAL SCH ×2 (11:07→22:08)
[2019-06-16 12:00] VITALS: BP 162/89
[2019-06-16 16:00] VITALS: BP 176/83
[2019-06-16] MEDS: Levemir Flexpen SUBQ SCH (18:17)
--- NOTE | 2019-06-16 19:58 | NUR ---
NURSE NOTES: Received report from RODGER Voss. Patient is awake lying semi-elena's; resting comfortably. No signs of acute distress noted; denies pain at this time. Daughter at bedside. On 2L nasal cannula. AOx4; able to make needs known. Ambulates with assistance. Checked IV site; patent and flushed. No erythema, bleeding, or infiltration noted. Bed at lowest position, brakes on, siderails up x2. Call light within reach. Will continue to monitor.
[2019-06-16 20:00] VITALS: BP_SYST 141; BP_SYST 159; BP_DIAS 74; BP_DIAS 81
--- NOTE | 2019-06-16 20:58 | General Progress Note ---
Assessment/Plan Assessment/Plan: #Acute hypoxic respiratory failure secondary to HAP and COPD exacerbation- Slowly improving #Sepsis secondary to hospital-acquired pneumonia #COPD exacerbation #Recurrent COPD exacerbation #perihilar infiltrate (persistent on CXR from 04/2019) > Troponins negative -Blood Cultures x2: NGTD -Sputum culture: pending -Urine Legionella -Solu-Medrol 40 mg every 6 hours -S/p Vancomycin per pharmacy on 06/15/19 -Continue Zosyn -Continue Azithromycin -D-dimer: Elevated. Will obtain VQ scan: low probability. No need for further imaging per pulmonology. No PE -CT chest non-contrast today: LLL mass, possible neoplasm vs. consolidation -Extensive discussion with patient informing her of the findings and plan of care. 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 No need for inpatient workup per Pulm. Patient will make an appointment to follow-up on CT scan results. All questions answered. -TTE: EF 55-60%. Normal -Appreciate pulmonology recommendations: Dr. Chatterjee -Extensive discussion regarding plan of care, goals, diagnosis with patient on . All questions answered #Acute renal failure suspected secondary to dehydration- Resolved -Discontinue IV fluids -Continue to avoid nephrotoxins -Trend creatinine -Check PVRs #Hypovolemic hyponatremia- Resolved -Continue to trend sodium #Microcytic anemia, history of being on chronic steroids -No signs of bleeding Continue to monitor -Stool occult blood negative -Informed Patient of anemia and need to follow-up with PCP for further workup. Patient will make appointment within one week. #Diabetes mellitus type 2 Hold home oral hypoglycemics Lantus 8 units daily Continue aspart 3 units 3 times daily with meals SSI, average Accuchecks Hypoglycemia protocol #Electrolyte abnormalities secondary to dehydration DVT PPx: HSQ Code status: Full 39 minutes spent on this encounter. Discussed with pulm and RN. > 50% spent on counseling and care coordination. Time of note may not reflect time patient was seen. Subjective Date patient seen: Jun 16, 2019 Allergies: Coded Allergies: No Known Allergies (Verified , 04/13/08) Subjective Patient feels about the same today. Overall still improving. On 2L nasal cannula. No other complaints. Vital signs are stable. Denies any chest pain nausea vomiting or diarrhea. Review of systems: Constitutional: Denies: chills, diaphoresis, malaise, weakness, other + endorses fever HEENT: Denies: eye pain, blurred vision, tearing, double vision, ear pain, ear discharge, nose pain, nose congestion, throat pain, throat swelling, mouth pain , mouth swelling, Cardiovascular: Denies: chest pain, edema, lightheadedness, palpitations, syncope, Respiratory: Denies: .orthopnea, stridor, wheezing, other + Endorses cough ( unchanged) shortness of breath, SOB with excertion, SOB at rest, sputum, Gastrointestinal/Abdominal: Denies: abdomen distended, abdominal pain, black stools, tarry stools, blood in stool, constipated, diarrhea, difficulty swallowing, nausea, poor appetite, poor fluid intake, rectal bleeding, vomiting , other Genitourinary: Denies: burning, discharge, frequency, flank pain, hematuria, incontinence, pain, urgency, other Neurologic/Psychiatric: Denies: anxiety, depressed, emotional problems, headache, numbness, paresthesia, pre-existing deficit, seizure, tingling, tremors, weakness, other Endocrine: Denies: excessive sweating, flushing, intolerance to cold, intolerance to heat, increased hunger, increased thirst, increased urine, unexplained weight gain, unexplained weight loss, other Hematologic/Lymphatic: Denies: anemia, easy bleeding, easy bruising, other Objective Last 24 Hour Vital Signs Date Time Temp Pulse Resp B/P (MAP) Pulse Ox O2 Delivery O2 Flow Rate FiO2 06/16/19 19:24 193/90 06/16/19 18:20 123/76 06/16/19 16:00 96.7 113 18 176/83 (114) 98 06/16/19 13:14 126/66 06/16/19 12:00 97.7 59 18 162/89 (113) 98 06/16/19 11:02 71 18 99 Nasal Cannula 2.0 28 67 18 96 06/16/19 09:23 158/93 06/16/19 08:51 Nasal Cannula 2.0 06/16/19 08:00 97.9 64 18 158/93 (114) 97 06/16/19 06:22 135/82 06/16/19 04:00 97.8 67 18 135/82 (99) 98 06/16/19 04:00 59 06/16/19 00:28 173/92 06/16/19 00:00 98.7 63 18 201/86 (124) 97 06/16/19 00:00 109 06/15/19 21:47 181/89 06/15/19 21:00 Nasal Cannula 2.0 Intake and Output 06/15/19 06/16/19 19:00 07:00 Intake Total 1850 ml 944.1 ml Balance 1850 ml 944.1 ml Intake Oral 240 ml IV Total 50 ml 704.1 ml Other 1800 ml # Voids 6 Laboratory Tests 06/16/19 06:52: White Blood Count 14.5H, Red Blood Count 4.17L, Hemoglobin 11.0L, Hematocrit 32.7L, Mean Corpuscular Volume 78L, Mean Corpuscular Hemoglobin 26.5L, Mean Corpuscular Hemoglobin Concent 33.7, Red Cell Distribution Width 13.0, Platelet Count 405, Mean Platelet Volume 5.2L, Neutrophils (%) (Auto) 74.5, Lymphocytes ( %) (Auto) 15.1L, Monocytes (%) (Auto) 9.9, Eosinophils (%) (Auto) 0.0, Basophils (%) (Auto) 0.4, Sodium Level 141, Potassium Level 3.5, Chloride Level 105, Carbon Dioxide Level 27, Anion Gap 9, Blood Urea Nitrogen 28H, Creatinine 1.1, Estimat Glomerular Filtration Rate 49.1, Glucose Level 138H, Calcium Level 8.1L, Phosphorus Level 2.0L, Magnesium Level 1.9 Height (Feet): 5 Height (Inches): 9.00 Weight (Pounds): 227 Objective General: WDWN female in NAD, A&O x 4 HEENT: Normocephalic cephalic atraumatic, pupils equal round reactive to light and accommodation, nares patent and no symmetrical, no tonsillar exudates, mucous membranes moist CV: Regular rate regular rhythm, no murmurs, rubs, or gallops Pulm: Diffuse exxpiratory wheezing at bases bilaterally (improving). No rhonchi , or rales GI: Soft, nontender, nondistended, bowel sounds present Neuro: CN 2-12 intact bilaterally, no focal signs. Ext: No lower extremity edema bilaterally Skin: no rashes lesions or ulcers Msk: Joints symmetrical in upper extremity and lower extremity bilaterally, no joint swelling. Lymph: No lymphadenopathy in upper extremity and lower extremity David Quintero D.O. Jun 16, 2019 20:58
--- NOTE | 2019-06-16 21:03 | NUR ---
HAND-OFF: Report given to Luz/RODGER , pt in stable condition monitor BP.
[2019-06-16] MEDS: LORazepam 1mg tab ORAL PRN (21:56)
[2019-06-16] MEDS: TraZODone 100mg tab ORAL SCH (21:57)
[2019-06-16] MEDS: Azithromycin 250mg tab ORAL SCH (21:57)
[2019-06-17] VITALS: BP 159/81
[2019-06-17] MEDS: Enalaprilat 2.5mg/2ml Inj IV SCH ×4 (00:39→18:31)
[2019-06-17 04:00] VITALS: BP 145/77
[2019-06-17] MEDS: Heparin 5000 units/ml inj SUBQ SCH ×3 (06:00→21:21)
[2019-06-17] MEDS: NovoLOG Insulin Flexpen SUBQ SCH ×7 (06:30→21:20)
[2019-06-17] MEDS: Piperacillin/Tazobactam 3.375 GM in NS 110 ML IVPB SCH ×3 (07:04→21:19)
[2019-06-17 07:19] LABS: BASOPHILS % (AUTO) 0.9 % (0.0-2.0); EOSINOPHILS % (AUTO) 0.1 % (0.0-3.0); HEMATOCRIT 34.3 % (37.0-47.0); HEMOGLOBIN 11.6 G/DL (12.0-16.0); MEAN CORPUSCULAR VOLUME 78 FL (80-99); MONOCYTES % (AUTO) 8.6 % (1.0-10.0); NEUTROPHILS % (AUTO) 76.4 % (45.0-75.0); PLATELET COUNT 414 K/UL (150-450); RED BLOOD COUNT 4.38 M/UL (4.20-5.40); RED CELL DISTRIBUTION WIDTH 12.8 % (11.6-14.8); WHITE BLOOD COUNT 15.2 K/UL (4.8-10.8)
--- NOTE | 2019-06-17 07:35 | NUR ---
HAND-OFF: Report given to RODGER Ruiz.Patient is stable and with no signs of distress or pain. Endorsed plan of care.
[2019-06-17 08:00] VITALS: BP 150/69
--- NOTE | 2019-06-17 08:14 | NUR ---
NURSE NOTES: Received report from RODGER Escobar. Patient in bed resting, no active s/s cardiac, respiratory distress noticed at this time. Patient AOx4, on 2L oxygen via NC. SB with HR 56. IV on right wrist 22G, asymptomatic, patent, intact. Bed in lowest position, side rails upx2, bed alarm on, call light within reach. Will continue to monitor.
[2019-06-17 08:17] LABS: ANION GAP 14 mmol/L (5-15); BLOOD UREA NITROGEN 34 mg/dL (7-18); CALCIUM 9.1 MG/DL (8.5-10.1); CARBON DIOXIDE 23 MMOL/L (21-32); CHLORIDE 103 MMOL/L (98-107); CREATININE 1.3 MG/DL (0.55-1.30); PHOSPHORUS 3.2 MG/DL (2.5-4.9); SODIUM 140 MMOL/L (136-145)
--- NOTE | 2019-06-17 09:11 | NUR ---
RD ASSESSMENT & RECOMMENDATIONS SEE CARE ACTIVITY FOR COMPLETE ASSESSMENT DAILY ESTIMATED NEEDS: Needs based on Pulmonary, DM 73.4 abw 20-25 kcals/kg [id number] total kcals 1-1.5 g protein/kg 73-110 g total protein Fluid per MD, on diuretics NUTRITION DIAGNOSIS: Altered nutrition related lab values r/t diabetes as evidenced by elev BG (138-301), elev POC (136-213), on long + short acting insulin + sliding scale. CURRENT DIET: Regular PO DIET RECOMMENDATIONS: CCHO LOW + Low Na + Double protein portions ADDITIONAL RECOMMENDATIONS: 1) Add B-complex 1 tab daily w/ diuretics 2) Obtain a standing scale wt daily w/ diuretics Or calibrated bed scale 3) Rec diet change as above
[2019-06-17] MEDS: Solu-MEDROL 40mg Inj IVP SCH ×2 (09:41→18:31)
[2019-06-17] MEDS: Meloxicam 15 MG TAB ORAL SCH (09:41)
[2019-06-17] MEDS: Triamterene/Hctz 37.5/25 cap ORAL SCH (09:41)
[2019-06-17] MEDS: Losartan 25mg tab ORAL SCH (09:42)
[2019-06-17] MEDS: Albuterol ud Inhalation HHN SCH ×2 (10:22→22:00)
[2019-06-17 12:00] VITALS: BP 149/71
--- NOTE | 2019-06-17 13:08 | NUR ---
CASE MANAGEMENT: REVIEW 06/17/19 SI: ELEVATED D-DIMER ACUTE HYPOXIA RESP FAILURE . SEPSIS . PNA . UTI . COPD EXACERBATION . 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
--- NOTE | 2019-06-17 13:31 | Pulmonology Progress Note ---
Assessment/Plan Assessment/Plan Pulmonary Progress Note Problems: (1) COPD (chronic obstructive pulmonary disease) (2) Lobular pneumonia (3) Ground glass opacity present on imaging of lung (4) Bronchiectasis (5) Renal insufficiency Assessment/Plan ASSESSMENT: The patient is a 69-year-old female with a history of COPD, former smoker, hypertension, GERD, diabetes, and hypothyroidism presenting with shortness of breath, noted to have COPD exacerbation, possible left lower lobe pneumonia. Possible LLL mass on CT chest PROBLEM LIST: 1. COPD with acute exacerbation. 2. LLL confluent opacity, scarring in the setting of bxtsis vs PNA vs neoplasm 3. RUL GGO 4. Elevated D-dimer S/P neg duplex and LP VQ 5. Acute kidney injury - RESOLVED 7. GERD. 8. Hypothyroidism. 9. Anxiety. 10. Anemia. TREATMENT PLAN: 1. Optimize pulmonary hygiene/mobilize as tolerated. 2. Titrate down FiO2 to keep saturations greater than 90%. 3. The patient may use her own Trelegy and Perforomist in the hospital. 4. Solu-Medrol taper based on response. 5. Qsbkd-cbu-ofdfl and p.r.n. DuoNebs. 6. IVAB: Zosyn and azithromycin 7. Monitor volumes and renal function, cautious hydration as needed. 8. DVT prophylaxis with heparin subcutaneous. 9. Continue to encourage abstinence from tobacco use. 10. 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 Shubham Jasmine will follow up post discharge, will have a PET/CT @ [facility] and based on findings may or may not need a lung biopsy Subjective Allergies: Coded Allergies: No Known Allergies (Verified , 04/13/08) Subjective AFVSS, VQ LP CT with confluent LLL opacity with central bxtsis and PRUDENCE GGO + cystic/emphysematous changes + SOB + cough no FC no CP slightly improved Objective Vital Signs Noted General Appearance: WD/WN, no acute distress HEENT: normocephalic, atraumatic, anicteric, mucous membranes moist Respiratory/Chest: rhonchi Cardiovascular: normal peripheral pulses, normal rate, regular rhythm Abdomen: normal bowel sounds, soft, non tender, no organomegaly, non distended , no mass Extremities: no cyanosis, no clubbing, no edema Laboratory Tests Noted Subjective ROS Limited/Unobtainable: No Allergies: Coded Allergies: No Known Allergies (Verified , 04/13/08) Objective Last 24 Hour Vital Signs Date Time Temp Pulse Resp B/P (MAP) Pulse Ox O2 Delivery O2 Flow Rate FiO2 06/17/19 13:15 81 149/71 06/17/19 13:08 149/71 06/17/19 12:00 81 06/17/19 12:00 98.1 60 18 149/71 (97) 97 06/17/19 10:22 74 17 98 Nasal Cannula 2.0 28 68 16 97 06/17/19 09:42 150/69 06/17/19 09:00 Nasal Cannula 2.0 06/17/19 08:00 97.0 86 18 150/69 (96) 97 06/17/19 08:00 56 06/17/19 06:48 145/77 06/17/19 04:00 97.8 56 18 145/77 (99) 95 06/17/19 04:00 47 06/17/19 00:39 159/81 06/17/19 00:00 98.1 56 20 159/81 (107) 95 06/17/19 00:00 54 06/16/19 21:00 Nasal Cannula 2.0 06/16/19 20:00 58 06/16/19 20:00 98.1 56 20 159/81 (107) 95 06/16/19 19:24 193/90 06/16/19 18:20 123/76 06/16/19 16:00 57 06/16/19 16:00 96.7 113 18 176/83 (114) 98 Intake and Output 06/16/19 06/17/19 19:00 07:00 Intake Total 730 ml 110.0 ml Balance 730 ml 110.0 ml Intake Oral 730 ml IV Total 110.0 ml # Voids 3 2 # Bowel Movements 3 3 Laboratory Tests 06/17/19 05:52: White Blood Count 15.2H, Red Blood Count 4.38, Hemoglobin 11.6L, Hematocrit 34.3L, Mean Corpuscular Volume 78L, Mean Corpuscular Hemoglobin 26.6L, Mean Corpuscular Hemoglobin Concent 33.9, Red Cell Distribution Width 12.8, Platelet Count 414, Mean Platelet Volume 4.9L, Neutrophils (%) (Auto) 76.4H, Lymphocytes (%) (Auto) 14.0L, Monocytes (%) (Auto) 8.6, Eosinophils (%) (Auto) 0.1, Basophils (%) (Auto) 0.9, Sodium Level 140, Potassium Level 4.0, Chloride Level 103, Carbon Dioxide Level 23, Anion Gap 14, Blood Urea Nitrogen 34H, Creatinine 1.3, Estimat Glomerular Filtration Rate 40.5, Glucose Level 144H, Calcium Level 9.1, Phosphorus Level 3.2, Magnesium Level 1.8 Current Medications Medications (Trade) Dose Ordered Sig/[place] Route PRN Reason Start Time Stop Time Status Last Admin Dose Admin Acetaminophen (Tylenol) 650 mg Q6H PRN ORAL Mild Pain/Temp > 100.5 06/12/19 16:30 07/12/19 16:29 06/12/19 16:39 Acetaminophen/ Hydrocodone Bitart ([place] 10/325) 1 tab Q4H PRN ORAL PAIN 4-10 06/12/19 16:30 06/19/19 16:29 06/13/19 23:41 Albuterol Sulfate (Proventil) 0.63 mg BIDRT HHN 06/13/19 10:00 06/18/19 09:59 06/17/19 10:22 Amlodipine Besylate (Norvasc) 5 mg ONCE ORAL 06/17/19 13:00 06/17/19 14:30 06/17/19 13:15 Amlodipine Besylate (Norvasc) 10 mg DAILY ORAL 06/18/19 09:00 07/18/19 08:59 Azithromycin (Zithromax) 500 mg QHS ORAL 06/15/19 21:00 06/18/19 22:00 06/16/19 21:57 Dextrose (Dextrose 50%) 25 ml Q30M PRN IV Hypoglycemia 06/14/19 10:30 07/14/19 10:29 Dextrose (Dextrose 50%) 50 ml Q30M PRN IV Hypoglycemia 06/14/19 10:30 07/14/19 10:29 Enalaprilat (Vasotec) 2.5 mg EVERY 6 HOURS IV 06/13/19 00:00 07/13/19 00:00 06/17/19 13:08 Heparin Sodium (Porcine) (Heparin 5000 units/ml) 5,000 units EVERY 8 HOURS SUBQ 06/12/19 22:00 07/12/19 21:59 06/16/19 06:23 Hydralazine HCl (Apresoline) 10 mg Q8H PRN IV For High Blood Pressure 06/15/19 20:46 07/15/19 20:45 06/16/19 19:24 Insulin Aspart (NovoLOG) BEFORE MEALS AND HS SUBQ 06/14/19 12:30 07/14/19 12:29 06/17/19 13:09 Insulin Aspart (NovoLOG) 3 units NOVOTIAC SUBQ 06/15/19 11:50 07/15/19 11:49 06/17/19 13:12 Insulin Detemir (Levemir) 8 units Q24H SUBQ 06/13/19 18:00 07/13/19 17:59 06/16/19 18:17 Levothyroxine Sodium (Synthroid) 150 mcg ACBREAKFAST ORAL 06/13/19 06:30 07/13/19 06:29 06/17/19 06:47 Lorazepam (Ativan) 1 mg HSPRN PRN ORAL FOR ANXIETY/INSOMNIA 06/12/19 21:00 06/19/19 20:59 06/16/19 21:56 Losartan Potassium (Cozaar) 25 mg DAILY ORAL 06/13/19 09:00 07/13/19 08:59 06/17/19 09:42 Meloxicam (Mobic) 15 mg DAILY ORAL 06/13/19 09:00 07/13/19 08:59 06/17/19 09:41 Methylprednisolone Sodium Succinate (Solu-MEDROL) 40 mg BID IVP 06/16/19 09:00 07/13/19 00:00 06/17/19 09:41 Ondansetron HCl (Zofran) 4 mg Q6H PRN IVP Nausea & Vomiting 06/12/19 16:30 07/12/19 16:29 06/12/19 16:38 Pantoprazole (Protonix) 40 mg DAILY@0630 ORAL 06/13/19 06:30 07/13/19 06:29 06/17/19 06:47 Piperacillin Sod/ Tazobactam Sod 3.375 gm/Sodium Chloride 110 ml @ 27.5 mls/hr EVERY 8 HOURS IVPB 06/12/19 22:00 06/22/19 17:59 06/17/19 13:08 Quetiapine Fumarate (SEROqueL) 25 mg BEDTIME ORAL 06/17/19 21:00 07/17/19 20:59 Trazodone HCl (Desyrel) 600 mg BEDTIME ORAL 06/13/19 21:00 07/13/19 20:59 06/16/19 21:57 Darvin Austin MD Jun 17, 2019 13:31
[2019-06-17 16:00] VITALS: BP 145/77
--- NOTE | 2019-06-17 18:02 | General Progress Note ---
Assessment/Plan Assessment/Plan: #Acute hypoxic respiratory failure secondary to HAP and COPD exacerbation- Slowly improving #Sepsis secondary to hospital-acquired pneumonia #COPD exacerbation #Recurrent COPD exacerbation #perihilar infiltrate (persistent on CXR from 04/2019) #leukocytosis 2/2 steroids > Troponins negative -Blood Cultures x2: NGTD -Sputum culture: pending -Urine Legionella -Solu-Medrol 40 mg BID -S/p Vancomycin per pharmacy on 06/15/19 -Continue Zosyn -Continue Azithromycin -D-dimer: Elevated. Will obtain VQ scan: low probability. No need for further imaging per pulmonology. No PE -CT chest non-contrast today: LLL mass, possible neoplasm vs. consolidation -Extensive discussion with patient informing her of the findings and plan of care. 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 No need for inpatient workup per Pulm. Patient will make an appointment to follow-up on CT scan results. All questions answered. -TTE: EF 55-60%. Normal -Appreciate pulmonology recommendations: Dr. Chatterjee -Extensive discussion regarding plan of care, goals, diagnosis with patient on . All questions answered #Diabetes mellitus type 2 Hold home oral hypoglycemics Lantus 8 units daily Continue aspart 3 units 3 times daily with meals SSI, average Accuchecks Hypoglycemia protocol #Essential hypertension -hold Thiazide as can cause dehydration -Continue losartan 25mg Po daily -START amlodipine 10mg Po daily #Acute renal failure suspected secondary to dehydration- Resolved -Discontinue IV fluids -Continue to avoid nephrotoxins -Trend creatinine -Check PVRs #Hypovolemic hyponatremia- Resolved -Continue to trend sodium #Microcytic anemia, history of being on chronic steroids -No signs of bleeding Continue to monitor -Stool occult blood negative -Informed Patient of anemia and need to follow-up with PCP for further workup. Patient will make appointment within one week. #Electrolyte abnormalities secondary to dehydration DVT PPx: HSQ Code status: Full 40 minutes spent on this encounter. Discussed with pulm and RN. > 50% spent on counseling and care coordination. Time of note may not reflect time patient was seen. Subjective Date patient seen: Jun 17, 2019 Allergies: Coded Allergies: No Known Allergies (Verified , 04/13/08) Subjective Patient feels slightly improved today. Still On 2L nasal cannula. Feels depressed but no SI or HI. Vital signs are stable. Denies any chest pain nausea vomiting or diarrhea. Review of systems: Constitutional: Denies: chills, diaphoresis, malaise, weakness, other + endorses fever HEENT: Denies: eye pain, blurred vision, tearing, double vision, ear pain, ear discharge, nose pain, nose congestion, throat pain, throat swelling, mouth pain , mouth swelling, Cardiovascular: Denies: chest pain, edema, lightheadedness, palpitations, syncope, Respiratory: Denies: .orthopnea, stridor, wheezing, other + Endorses cough ( unchanged) shortness of breath, SOB with excertion, SOB at rest, sputum, Gastrointestinal/Abdominal: Denies: abdomen distended, abdominal pain, black stools, tarry stools, blood in stool, constipated, diarrhea, difficulty swallowing, nausea, poor appetite, poor fluid intake, rectal bleeding, vomiting , other Genitourinary: Denies: burning, discharge, frequency, flank pain, hematuria, incontinence, pain, urgency, other Neurologic/Psychiatric: Denies: anxiety, depressed, emotional problems, headache, numbness, paresthesia, pre-existing deficit, seizure, tingling, tremors, weakness, other Endocrine: Denies: excessive sweating, flushing, intolerance to cold, intolerance to heat, increased hunger, increased thirst, increased urine, unexplained weight gain, unexplained weight loss, other Hematologic/Lymphatic: Denies: anemia, easy bleeding, easy bruising, other Objective Last 24 Hour Vital Signs Date Time Temp Pulse Resp B/P (MAP) Pulse Ox O2 Delivery O2 Flow Rate FiO2 06/17/19 13:15 81 149/71 06/17/19 13:08 149/71 06/17/19 12:00 81 06/17/19 12:00 98.1 60 18 149/71 (97) 97 06/17/19 10:22 74 17 98 Nasal Cannula 2.0 28 68 16 97 06/17/19 09:42 150/69 06/17/19 09:00 Nasal Cannula 2.0 06/17/19 08:00 97.0 86 18 150/69 (96) 97 06/17/19 08:00 56 06/17/19 06:48 145/77 06/17/19 04:00 97.8 56 18 145/77 (99) 95 06/17/19 04:00 47 06/17/19 00:39 159/81 06/17/19 00:00 98.1 56 20 159/81 (107) 95 06/17/19 00:00 54 06/16/19 21:00 Nasal Cannula 2.0 06/16/19 20:00 58 06/16/19 20:00 98.1 56 20 159/81 (107) 95 06/16/19 19:24 193/90 06/16/19 18:20 123/76 Intake and Output 06/16/19 06/17/19 19:00 07:00 Intake Total 730 ml 110.0 ml Balance 730 ml 110.0 ml Intake Oral 730 ml IV Total 110.0 ml # Voids 3 2 # Bowel Movements 3 3 Laboratory Tests 06/17/19 05:52: White Blood Count 15.2H, Red Blood Count 4.38, Hemoglobin 11.6L, Hematocrit 34.3L, Mean Corpuscular Volume 78L, Mean Corpuscular Hemoglobin 26.6L, Mean Corpuscular Hemoglobin Concent 33.9, Red Cell Distribution Width 12.8, Platelet Count 414, Mean Platelet Volume 4.9L, Neutrophils (%) (Auto) 76.4H, Lymphocytes (%) (Auto) 14.0L, Monocytes (%) (Auto) 8.6, Eosinophils (%) (Auto) 0.1, Basophils (%) (Auto) 0.9, Sodium Level 140, Potassium Level 4.0, Chloride Level 103, Carbon Dioxide Level 23, Anion Gap 14, Blood Urea Nitrogen 34H, Creatinine 1.3, Estimat Glomerular Filtration Rate 40.5, Glucose Level 144H, Calcium Level 9.1, Phosphorus Level 3.2, Magnesium Level 1.8 06/17/19 14:10: Vancomycin Level Trough 6.4 Height (Feet): 5 Height (Inches): 9.00 Weight (Pounds): 227 Objective General: WDWN female in NAD, A&O x 4 HEENT: Normocephalic cephalic atraumatic, pupils equal round reactive to light and accommodation, nares patent and no symmetrical, no tonsillar exudates, mucous membranes moist CV: Regular rate regular rhythm, no murmurs, rubs, or gallops Pulm: Slight diffuse expiratory wheezing at bases bilaterally (much improved). No rhonchi, or rales GI: Soft, nontender, nondistended, bowel sounds present Neuro: CN 2-12 intact bilaterally, no focal signs. Ext: No lower extremity edema bilaterally Skin: no rashes lesions or ulcers Msk: Joints symmetrical in upper extremity and lower extremity bilaterally, no joint swelling. Lymph: No lymphadenopathy in upper extremity and lower extremity David Quintero D.O. Jun 17, 2019 18:02
[2019-06-17] MEDS: Levemir Flexpen SUBQ SCH (18:45)
--- NOTE | 2019-06-17 19:43 | NUR ---
HAND-OFF: Report given to RODGER Arguelles.
--- NOTE | 2019-06-17 19:45 | NUR ---
NURSE NOTES: Received report from Joseph Echeverria RN. Pt is in stable condition, will continue plan of care and close monitoring.
[2019-06-17 20:00] VITALS: BP 121/64
[2019-06-17] MEDS: Azithromycin 250mg tab ORAL SCH (21:19)
[2019-06-17] MEDS: TraZODone 100mg tab ORAL SCH (21:19)
--- NOTE | 2019-06-17 22:45 | Consultation ---
DATE OF CONSULTATION: 06/17/2019 CONSULTING PHYSICIAN: Eulalia Reza M.D. REFERRING PHYSICIAN: Emanuel Blum M.D. HISTORY OF PRESENT ILLNESS: This is a 69-year-old female with a history of depression, who has been admitted to the hospital for medical stabilization. The patient has multiple medical issues including COPD, hypertension, diabetes, depression, pneumonia. The patient is presenting with depressed mood, anhedonia, worthlessness, hopelessness, decreased energy. The patient is on 600 mg at bedtime. The patient stated she is still depressed. PAST MEDICAL HISTORY: As above. ALLERGIES: No known drug allergies. SUBSTANCE ABUSE HISTORY: No known history of illicit drug use or alcohol. The toxicology was negative. MENTAL STATUS EXAMINATION: Alert, oriented times self, place, situation, and date. Mood is depressed. Affect is constricted, congruent with mood. Thought process is linear and goal oriented. Thought content, no suicidal or homicidal ideation. ASSESSMENT: [place] I Major depressive disorder. [place] II Deferred. [place] III As above. [place] IV Low. [place] V 20. PLAN: 1. We will continue 600 mg at bedtime. 2. Suggest low dose of Seroquel. 3. antidepressant. 4. Provide the patient with reality orientation and supportive therapy. Eulalia Reza M.D. DR: EDIN JOB#: [id number] CC:
[2019-06-18] VITALS: BP 106/66
[2019-06-18] MEDS: Enalaprilat 2.5mg/2ml Inj IV SCH ×4 (00:08→17:24)
[2019-06-18 04:00] VITALS: BP 144/82
[2019-06-18] MEDS: Piperacillin/Tazobactam 3.375 GM in NS 110 ML IVPB SCH ×3 (05:55→21:27)
[2019-06-18] MEDS: NovoLOG Insulin Flexpen SUBQ SCH ×7 (05:57→21:31)
[2019-06-18] MEDS: Heparin 5000 units/ml inj SUBQ SCH ×3 (05:58→21:32)
[2019-06-18 08:00] VITALS: BP 129/67
--- NOTE | 2019-06-18 08:02 | NUR ---
NURSE NOTES: received patient from Frannie Dubon. Patient is awake sitting up in bed. Eating her breakfast. No complain of pain or discomfort at this time. Right hand [address] with ABT infusing well. Reminded patient re: safety precautions. Call kinsey within patients reach. will follow.
--- NOTE | 2019-06-18 08:02 | NUR ---
HAND-OFF: Report given to Angelica Edgar RN. Pt in stable condition.
[2019-06-18] MEDS: Losartan 25mg tab ORAL SCH (08:58)
[2019-06-18] MEDS: Meloxicam 15 MG TAB ORAL SCH (08:58)
[2019-06-18] MEDS: Solu-MEDROL 40mg Inj IVP SCH (08:59)
[2019-06-18 09:23] LABS: HEMATOCRIT 37.1 % (37.0-47.0); HEMOGLOBIN 12.6 G/DL (12.0-16.0); MEAN CORPUSCULAR VOLUME 78 FL (80-99); PLATELET COUNT 432 K/UL (150-450); RED BLOOD COUNT 4.73 M/UL (4.20-5.40); RED CELL DISTRIBUTION WIDTH 12.9 % (11.6-14.8); WHITE BLOOD COUNT 18.7 K/UL (4.8-10.8)
[2019-06-18] MEDS: Albuterol ud Inhalation HHN SCH (09:31)
[2019-06-18 09:33] LABS: ANION GAP 11 mmol/L (5-15); BLOOD UREA NITROGEN 40 mg/dL (7-18); CALCIUM 9.2 MG/DL (8.5-10.1); CARBON DIOXIDE 27 MMOL/L (21-32); CHLORIDE 102 MMOL/L (98-107); CREATININE 1.3 MG/DL (0.55-1.30); POTASSIUM 3.7 MMOL/L (3.5-5.1); SODIUM 140 MMOL/L (136-145)
[2019-06-18 11:52] VITALS: BP 132/65
--- NOTE | 2019-06-18 14:57 | Pulmonology Progress Note ---
Assessment/Plan Assessment/Plan Pulmonary Progress Note Problems: (1) COPD (chronic obstructive pulmonary disease) (2) Lobular pneumonia (3) Ground glass opacity present on imaging of lung (4) Bronchiectasis (5) Renal insufficiency Assessment/Plan ASSESSMENT: The patient is a 69-year-old female with a history of COPD, former smoker, hypertension, GERD, diabetes, and hypothyroidism presenting with shortness of breath, noted to have COPD exacerbation, possible left lower lobe pneumonia. Possible LLL mass on CT chest Less SOB PROBLEM LIST: 1. COPD with acute exacerbation. 2. LLL confluent opacity, scarring in the setting of bxtsis vs PNA vs neoplasm 3. RUL GGO 4. Elevated D-dimer S/P neg duplex and LP VQ 5. Acute kidney injury - RESOLVED 7. GERD. 8. Hypothyroidism. 9. Anxiety. 10. Anemia. TREATMENT PLAN: 1. Optimize pulmonary hygiene/mobilize as tolerated. 2. Titrate down FiO2 to keep saturations greater than 90%. 3. The patient may use her own Trelegy and Perforomist in the hospital. 4. Solu-Medrol taper based on response. 5. Ewcvw-jmp-easya and p.r.n. DuoNebs. 6. IVAB: Zosyn and azithromycin 7. Monitor volumes and renal function, cautious hydration as needed. 8. DVT prophylaxis with heparin subcutaneous. 9. Continue to encourage abstinence from tobacco use. 10. Patient's primary finisher operator, Dr. Shubham Jasmine will follow up post discharge, will have a PET/CT @ [facility] and based on findings may or may not need a lung biopsy Subjective Allergies: Coded Allergies: No Known Allergies (Verified , 04/13/08) Subjective AFVSS, VQ LP CT with confluent LLL opacity with central bxtsis and PRUDENCE GGO + cystic/emphysematous changes + SOB + cough no FC no CP slightly improved Objective Vital Signs Noted General Appearance: WD/WN, no acute distress HEENT: normocephalic, atraumatic, anicteric, mucous membranes moist Respiratory/Chest: rhonchi Cardiovascular: normal peripheral pulses, normal rate, regular rhythm Abdomen: normal bowel sounds, soft, non tender, no organomegaly, non distended , no mass Extremities: no cyanosis, no clubbing, no edema Laboratory Tests Noted Subjective ROS Limited/Unobtainable: No Allergies: Coded Allergies: No Known Allergies (Verified , 04/13/08) Objective Last 24 Hour Vital Signs Date Time Temp Pulse Resp B/P (MAP) Pulse Ox O2 Delivery O2 Flow Rate FiO2 06/18/19 12:00 64 06/18/19 11:57 132/65 06/18/19 11:52 97.7 69 18 132/65 (87) 94 06/18/19 09:33 69 20 99 Nasal Cannula 2.0 28 67 20 94 06/18/19 09:00 Nasal Cannula 2.0 06/18/19 08:58 64 129/67 06/18/19 08:58 129/67 06/18/19 08:00 60 06/18/19 08:00 97.5 64 20 129/67 (87) 94 06/18/19 06:02 144/77 06/18/19 04:00 97.8 53 20 144/82 (102) 96 06/18/19 04:00 51 06/18/19 00:08 152/83 06/18/19 00:00 53 06/18/19 00:00 98.4 92 20 106/66 (79) 96 06/17/19 21:00 Nasal Cannula 2.0 06/17/19 20:00 61 06/17/19 20:00 98.1 95 22 121/64 (83) 96 06/17/19 18:31 145/77 06/17/19 16:00 70 06/17/19 16:00 97.0 75 18 145/77 (99) 95 Intake and Output 06/17/19 06/18/19 19:00 07:00 Intake Total 450 ml Balance 450 ml Intake Oral 450 ml # Voids 3 3 Laboratory Tests 06/18/19 08:08: White Blood Count 18.7H, Red Blood Count 4.73, Hemoglobin 12.6, Hematocrit 37.1 , Mean Corpuscular Volume 78L, Mean Corpuscular Hemoglobin 26.6L, Mean Corpuscular Hemoglobin Concent 33.9, Red Cell Distribution Width 12.9, Platelet Count 432, Mean Platelet Volume 5.0L, Neutrophils (%) (Auto) , Lymphocytes (%) ( Auto) , Monocytes (%) (Auto) , Eosinophils (%) (Auto) , Basophils (%) (Auto) , Differential Total Cells Counted 100, Neutrophils % (Manual) 67, Lymphocytes % ( Manual) 22, Monocytes % (Manual) 10, Eosinophils % (Manual) 0, Basophils % ( Manual) 0, Band Neutrophils 1, Platelet Estimate Adequate, Platelet Morphology Normal, Microcytosis 1+, Sodium Level 140, Potassium Level 3.7, Chloride Level 102, Carbon Dioxide Level 27, Anion Gap 11, Blood Urea Nitrogen 40H, Creatinine 1.3, Estimat Glomerular Filtration Rate 40.5, Glucose Level 119H, Calcium Level 9.2 Current Medications Medications (Trade) Dose Ordered Sig/[place] Route PRN Reason Start Time Stop Time Status Last Admin Dose Admin Acetaminophen (Tylenol) 650 mg Q6H PRN ORAL Mild Pain/Temp > 100.5 06/12/19 16:30 07/12/19 16:29 06/12/19 16:39 Acetaminophen/ Hydrocodone Bitart ([place] 10/325) 1 tab Q4H PRN ORAL PAIN 4-10 06/12/19 16:30 06/19/19 16:29 06/13/19 23:41 Amlodipine Besylate (Norvasc) 10 mg DAILY ORAL 06/18/19 09:00 07/18/19 08:59 06/18/19 08:58 Azithromycin (Zithromax) 500 mg QHS ORAL 06/15/19 21:00 06/18/19 22:00 06/17/19 21:19 Dextrose (Dextrose 50%) 25 ml Q30M PRN IV Hypoglycemia 06/14/19 10:30 07/14/19 10:29 Dextrose (Dextrose 50%) 50 ml Q30M PRN IV Hypoglycemia 06/14/19 10:30 07/14/19 10:29 Enalaprilat (Vasotec) 2.5 mg EVERY 6 HOURS IV 06/13/19 00:00 07/13/19 00:00 06/18/19 11:57 Heparin Sodium (Porcine) (Heparin 5000 units/ml) 5,000 units EVERY 8 HOURS SUBQ 06/12/19 22:00 07/12/19 21:59 06/18/19 05:58 Hydralazine HCl (Apresoline) 10 mg Q8H PRN IV For High Blood Pressure 06/15/19 20:46 07/15/19 20:45 06/16/19 19:24 Insulin Aspart (NovoLOG) BEFORE MEALS AND HS SUBQ 06/14/19 12:30 07/14/19 12:29 06/18/19 11:58 Insulin Aspart (NovoLOG) 3 units NOVOTIAC SUBQ 06/15/19 11:50 07/15/19 11:49 06/18/19 11:58 Insulin Detemir (Levemir) 8 units Q24H SUBQ 06/13/19 18:00 07/13/19 17:59 06/17/19 18:45 Levothyroxine Sodium (Synthroid) 150 mcg ACBREAKFAST ORAL 06/13/19 06:30 07/13/19 06:29 06/18/19 05:55 Lorazepam (Ativan) 1 mg HSPRN PRN ORAL FOR ANXIETY/INSOMNIA 06/12/19 21:00 06/19/19 20:59 06/16/19 21:56 Losartan Potassium (Cozaar) 25 mg DAILY ORAL 06/13/19 09:00 07/13/19 08:59 06/18/19 08:58 Meloxicam (Mobic) 15 mg DAILY ORAL 06/13/19 09:00 07/13/19 08:59 06/18/19 08:58 Methylprednisolone Sodium Succinate (Solu-MEDROL) 40 mg DAILY IVP 06/19/19 09:00 07/13/19 00:00 Ondansetron HCl (Zofran) 4 mg Q6H PRN IVP Nausea & Vomiting 06/12/19 16:30 07/12/19 16:29 06/12/19 16:38 Pantoprazole (Protonix) 40 mg DAILY@0630 ORAL 06/13/19 06:30 07/13/19 06:29 06/18/19 05:55 Piperacillin Sod/ Tazobactam Sod 3.375 gm/Sodium Chloride 110 ml @ 27.5 mls/hr EVERY 8 HOURS IVPB 06/12/19 22:00 06/22/19 17:59 06/18/19 13:43 Quetiapine Fumarate (SEROqueL) 25 mg BEDTIME ORAL 06/17/19 21:00 07/17/19 20:59 06/17/19 21:18 Trazodone HCl (Desyrel) 600 mg BEDTIME ORAL 06/13/19 21:00 07/13/19 20:59 06/17/19 21:19 Darvin Austin MD Jun 18, 2019 14:57
[2019-06-18 16:00] VITALS: BP 127/74
--- NOTE | 2019-06-18 17:08 | General Progress Note ---
Assessment/Plan Assessment/Plan: 69 y/o F w/PMH COPD, former smoker, hypertension, GERD, diabetes, and hypothyroidism presenting with shortness of breath, noted to have COPD exacerbation, possible left lower lobe pneumonia. Possible LLL mass on CT chest. #Acute hypoxic respiratory failure secondary to HAP and COPD exacerbation- Slowly improving #Sepsis secondary to hospital-acquired pneumonia - improved #COPD exacerbation #Recurrent COPD exacerbation #perihilar infiltrate (persistent on CXR from 04/2019) #leukocytosis 2/2 steroids -Troponins negative -Blood Cultures x2: NGTD -Sputum culture: pending -Urine Legionella negative -D-dimer: Elevated. VQ scan: low probability. No need for further imaging per pulmonology. No PE -CT chest non-contrast today: LLL mass, possible neoplasm vs. consolidation -Extensive discussion with patient informing her of the findings and plan of care. 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 No need for inpatient workup per Pulm. Patient will make an appointment to follow-up on CT scan results. -TTE: EF 55-60%. Normal -S/p Vancomycin per pharmacy on 06/15/19 -Continue abx Zosyn and Azithromycin -Cont. Solu-Medrol , taper based on response per pulm -dEith ATC/PRN -Appreciate pulmonology recommendations: Dr. Chatterjee #Diabetes mellitus type 2 Hold home oral hypoglycemics Lantus 8 units daily Continue aspart 3 units 3 times daily with meals SSI, average, Accuchecks Hypoglycemia protocol #Essential hypertension -held home Thiazide as can cause dehydration -Continue losartan 25mg Po daily -Cont. amlodipine 10mg Po daily #Acute renal failure suspected secondary to dehydration- Resolved -s/p IV fluids -Continue to avoid nephrotoxins -monitor Cr #Electrolyte abnormalities secondary to dehydration #Hypovolemic hyponatremia- Resolved -Continue to trend sodium #Microcytic anemia, history of being on chronic steroids -No signs of bleeding, Continue to monitor -Stool occult blood negative -Informed Patient of anemia and need to follow-up with PCP for further workup. Patient will make appointment within one week. DVT PPx: HSQ Code status: Full 40 minutes spent on this encounter. Discussed with pulm and RN. > 50% spent on counseling and care coordination. Time of note may not reflect time patient was seen. Subjective Constitutional: Denies: no symptoms, chills, diaphoresis, fever, malaise, weakness, other HEENT: Denies: no symptoms, eye pain, blurred vision, tearing, double vision, ear pain, ear discharge, nose pain, nose congestion, throat pain, throat swelling, mouth pain, mouth swelling, other Cardiovascular: Denies: no symptoms, chest pain, edema, irregular heart rate, lightheadedness, palpitations, syncope, other Respiratory: Denies: no symptoms, cough, orthopnea, shortness of breath, SOB with excertion, SOB at rest, sputum, stridor, wheezing, other Gastrointestinal/Abdominal: Denies: no symptoms, abdomen distended, abdominal pain, black stools, tarry stools, blood in stool, constipated, diarrhea, difficulty swallowing, nausea, poor appetite, poor fluid intake, rectal bleeding , vomiting, other Genitourinary: Denies: no symptoms, burning, discharge, frequency, flank pain, hematuria, incontinence, pain, urgency, other Neurologic/Psychiatric: Denies: no symptoms, anxiety, depressed, emotional problems, headache, numbness, paresthesia, pre-existing deficit, seizure, tingling, tremors, weakness, other Endocrine: Denies: no symptoms, excessive sweating, flushing, intolerance to cold, intolerance to heat, increased hunger, increased thirst, increased urine, unexplained weight gain, unexplained weight loss, other Hematologic/Lymphatic: Denies: no symptoms, anemia, easy bleeding, easy bruising, other Allergies: Coded Allergies: No Known Allergies (Verified , 04/13/08) Subjective Pt states she is feeling better today, denies SOB/wheezing. No CP, abd pain, dysuria. Objective Last 24 Hour Vital Signs Date Time Temp Pulse Resp B/P (MAP) Pulse Ox O2 Delivery O2 Flow Rate FiO2 06/18/19 16:00 97.9 61 18 127/74 (91) 96 06/18/19 12:00 64 06/18/19 11:57 132/65 06/18/19 11:52 97.7 69 18 132/65 (87) 94 06/18/19 09:33 69 20 99 Nasal Cannula 2.0 28 67 20 94 06/18/19 09:00 Nasal Cannula 2.0 2/22/20 08:58 64 129/67 06/18/19 08:58 129/67 06/18/19 08:00 60 06/18/19 08:00 97.5 64 20 129/67 (87) 94 06/18/19 06:02 144/77 06/18/19 04:00 97.8 53 20 144/82 (102) 96 06/18/19 04:00 51 06/18/19 00:08 152/83 06/18/19 00:00 53 06/18/19 00:00 98.4 92 20 106/66 (79) 96 06/17/19 21:00 Nasal Cannula 2.0 06/17/19 20:00 61 06/17/19 20:00 98.1 95 22 121/64 (83) 96 06/17/19 18:31 145/77 Intake and Output 06/17/19 06/18/19 19:00 07:00 Intake Total 450 ml Balance 450 ml Intake Oral 450 ml # Voids 3 3 Laboratory Tests 06/18/19 08:08: White Blood Count 18.7H, Red Blood Count 4.73, Hemoglobin 12.6, Hematocrit 37.1 , Mean Corpuscular Volume 78L, Mean Corpuscular Hemoglobin 26.6L, Mean Corpuscular Hemoglobin Concent 33.9, Red Cell Distribution Width 12.9, Platelet Count 432, Mean Platelet Volume 5.0L, Neutrophils (%) (Auto) , Lymphocytes (%) ( Auto) , Monocytes (%) (Auto) , Eosinophils (%) (Auto) , Basophils (%) (Auto) , Differential Total Cells Counted 100, Neutrophils % (Manual) 67, Lymphocytes % ( Manual) 22, Monocytes % (Manual) 10, Eosinophils % (Manual) 0, Basophils % ( Manual) 0, Band Neutrophils 1, Platelet Estimate Adequate, Platelet Morphology Normal, Microcytosis 1+, Sodium Level 140, Potassium Level 3.7, Chloride Level 102, Carbon Dioxide Level 27, Anion Gap 11, Blood Urea Nitrogen 40H, Creatinine 1.3, Estimat Glomerular Filtration Rate 40.5, Glucose Level 119H, Calcium Level 9.2 Height (Feet): 5 Height (Inches): 9.00 Weight (Pounds): 227 Frantz Jones M.D. Jun 18, 2019 17:08
[2019-06-18] MEDS: Levemir Flexpen SUBQ SCH (17:26)
--- NOTE | 2019-06-18 19:26 | NUR ---
HAND-OFF: Report given to Frannie Abad. Plan of care endorsed.
--- NOTE | 2019-06-18 19:30 | NUR ---
NURSE NOTES: Received report from Angelica SOARES. Patient in bed resting, no active s/s cardiac, respiratory distress noticed at this time. Patient AOx4, on 2L oxygen via [place] (ordered but she had it off when I first checked on her) Patient runs SR to SB with HR 58. IV on right wrist occluded. will reinsert new IV. Bed in lowest position, side rails upx2, bed alarm on, call light within reach. Will continue to monitor.
[2019-06-18 20:00] VITALS: BP 159/71
[2019-06-18] MEDS: TraZODone 100mg tab ORAL SCH (21:27)
[2019-06-18] MEDS: Azithromycin 250mg tab ORAL SCH (21:27)
[2019-06-19] VITALS: BP 151/78
[2019-06-19] MEDS: Enalaprilat 2.5mg/2ml Inj IV SCH ×4 (01:03→17:23)
--- NOTE | 2019-06-19 02:15 | Progress Note ---
DATE: 06/18/2019 SUBJECTIVE: The patient has presented with depressed mood, anhedonia, worthlessness, hopelessness, decreased energy, compliant with medication. The patient was started on Seroquel. She is also on Ativan, tolerating medication. MENTAL STATUS EXAM: The patient is alert and oriented times self, place, and situation. Mood is neutral. Affect is flat. Thought process is concrete. Thought content, no suicidal or homicidal ideation. ASSESSMENT: Stable. PLAN: 1. We will continue current medications. 2. Provide the patient with reality orientation and supportive therapy. Eulalia Reza M.D. DR: TESHA JOB#: [id number] CC:
[2019-06-19 04:00] VITALS: BP 135/78
[2019-06-19] MEDS: Heparin 5000 units/ml inj SUBQ SCH ×3 (05:16→22:00)
[2019-06-19] MEDS: Piperacillin/Tazobactam 3.375 GM in NS 110 ML IVPB SCH ×3 (05:27→21:32)
[2019-06-19] MEDS: NovoLOG Insulin Flexpen SUBQ SCH ×7 (05:44→21:19)
--- NOTE | 2019-06-19 07:10 | NUR ---
HAND-OFF: Report given to RODGER Dominguez.
--- NOTE | 2019-06-19 07:33 | NUR ---
NURSE NOTES: Received report from Frannie Abad. Patient is sleeping comfortably in bed. no signs and symptoms of pain or discomfort. Fall precautions in place. Call kinsey within patients reached. Will follow.
[2019-06-19 08:00] VITALS: BP 119/68
[2019-06-19] MEDS ORDERED: Solu-MEDROL 40mg Inj IVP SCH (09:00)
[2019-06-19] MEDS: Losartan 25mg tab ORAL SCH (09:12)
[2019-06-19] MEDS: Meloxicam 15 MG TAB ORAL SCH (09:13)
[2019-06-19 10:48] LABS: BASOPHILS % (AUTO) 0.9 % (0.0-2.0); EOSINOPHILS % (AUTO) 1.5 % (0.0-3.0); HEMATOCRIT 36.9 % (37.0-47.0); HEMOGLOBIN 12.3 G/DL (12.0-16.0); MEAN CORPUSCULAR VOLUME 79 FL (80-99); MONOCYTES % (AUTO) 6.5 % (1.0-10.0); PLATELET COUNT 438 K/UL (150-450); RED CELL DISTRIBUTION WIDTH 14.9 % (11.6-14.8); WHITE BLOOD COUNT 15.8 K/UL (4.8-10.8)
[2019-06-19 11:08] LABS: ANION GAP 11 mmol/L (5-15); BLOOD UREA NITROGEN 50 mg/dL (7-18); CALCIUM 8.3 MG/DL (8.5-10.1); CARBON DIOXIDE 26 MMOL/L (21-32); CHLORIDE 104 MMOL/L (98-107); CREATININE 1.5 MG/DL (0.55-1.30); POTASSIUM 3.6 MMOL/L (3.5-5.1); SODIUM 141 MMOL/L (136-145)
[2019-06-19 12:00] VITALS: BP 133/79
--- NOTE | 2019-06-19 14:11 | General Progress Note ---
Assessment/Plan Assessment/Plan: 69 y/o F w/PMH COPD, former smoker, hypertension, GERD, diabetes, and hypothyroidism presenting with shortness of breath, noted to have COPD exacerbation, possible left lower lobe pneumonia. Possible LLL mass on CT chest. #Acute hypoxic respiratory failure secondary to HAP and COPD exacerbation- improving #Sepsis secondary to hospital-acquired pneumonia - improved #COPD exacerbation #Recurrent COPD exacerbation #perihilar infiltrate (persistent on CXR from 04/2019) #leukocytosis 2/2 steroids -Troponins negative -Blood Cultures x2: NGTD -Urine Legionella negative -D-dimer: Elevated. VQ scan: low probability. No need for further imaging per pulmonology. No PE -CT chest non-contrast today: LLL mass, possible neoplasm vs. consolidation -Extensive discussion with patient informing her of the findings and plan of care. 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 No need for inpatient workup per Pulm. Patient will make an appointment to follow-up on CT scan results. -TTE: EF 55-60%. Normal -S/p Vancomycin per pharmacy on 06/15/19 -s/p azithromycin 06/15-06/18 -Cont. Zosyn for now -Cont. Solu-Medrol , taper based on response per pulm -Appreciate pulmonology recommendations: Dr. Chatterjee -PT -ambulatory O2 sats #Diabetes mellitus type 2 Hold home oral hypoglycemics Lantus 8 units daily Continue aspart 3 units 3 times daily with meals SSI, average, Accuchecks Hypoglycemia protocol #Essential hypertension -held home Thiazide as can cause dehydration -Continue losartan 25mg Po daily -Cont. amlodipine 10mg Po daily #Acute renal failure suspected secondary to dehydration- Resolved -s/p IV fluids -Continue to avoid nephrotoxins -monitor Cr #Electrolyte abnormalities secondary to dehydration #Hypovolemic hyponatremia- Resolved -Continue to trend sodium #Microcytic anemia, history of being on chronic steroids -No signs of bleeding, Continue to monitor -Stool occult blood negative -Informed Patient of anemia and need to follow-up with PCP for further workup. Patient will make appointment within one week. # LLL mass, possible neoplasm or consolidation -found on CT chest -extensive discussion w/pt regarding findings -Pulmonology discussed findings with patient's electric refrigerator servicer who will follow up on the CT results and mass/consolidation as an outpatient. -No need for inpatient workup per Pulm. Patient will make an appointment to follow-up on CT scan results. -pt to f/u o/p w/ Pulm DVT PPx: HSQ Code status: Full 40 minutes spent on this encounter. Discussed with pulm and RN. > 50% spent on counseling and care coordination. Time of note may not reflect time patient was seen. Subjective Constitutional: Denies: no symptoms, chills, diaphoresis, fever, malaise, weakness, other HEENT: Denies: no symptoms, eye pain, blurred vision, tearing, double vision, ear pain, ear discharge, nose pain, nose congestion, throat pain, throat swelling, mouth pain, mouth swelling, other Cardiovascular: Denies: no symptoms, chest pain, edema, irregular heart rate, lightheadedness, palpitations, syncope, other Respiratory: Denies: no symptoms, cough, orthopnea, shortness of breath, SOB with excertion, SOB at rest, sputum, stridor, wheezing, other Gastrointestinal/Abdominal: Denies: no symptoms, abdomen distended, abdominal pain, black stools, tarry stools, blood in stool, constipated, diarrhea, difficulty swallowing, nausea, poor appetite, poor fluid intake, rectal bleeding , vomiting, other Genitourinary: Denies: no symptoms, burning, discharge, frequency, flank pain, hematuria, incontinence, pain, urgency, other Neurologic/Psychiatric: Denies: no symptoms, anxiety, depressed, emotional problems, headache, numbness, paresthesia, pre-existing deficit, seizure, tingling, tremors, weakness, other Endocrine: Denies: no symptoms, excessive sweating, flushing, intolerance to cold, intolerance to heat, increased hunger, increased thirst, increased urine, unexplained weight gain, unexplained weight loss, other Hematologic/Lymphatic: Denies: no symptoms, anemia, easy bleeding, easy bruising, other Allergies: Coded Allergies: No Known Allergies (Verified , 04/13/08) Subjective Pt feels tired today, denies SOB/wheezing, cough. No CP, abd pain, dysuria. Objective Last 24 Hour Vital Signs Date Time Temp Pulse Resp B/P (MAP) Pulse Ox O2 Delivery O2 Flow Rate FiO2 06/19/19 12:06 133/79 06/19/19 12:00 98.2 64 20 133/79 (97) 96 06/19/19 12:00 57 06/19/19 09:13 66 119/68 06/19/19 09:12 119/68 06/19/19 09:00 Nasal Cannula 2.0 06/19/19 08:00 97.3 66 20 119/68 (85) 98 06/19/19 08:00 70 06/19/19 05:15 135/78 06/19/19 05:11 50 06/19/19 04:00 97.1 58 16 135/78 (97) 98 06/19/19 01:03 151/78 06/19/19 00:00 53 06/19/19 00:00 98.0 57 18 151/78 (102) 97 06/18/19 21:00 Nasal Cannula 2.0 06/18/19 20:00 57 06/18/19 20:00 97.5 57 18 159/71 (100) 95 06/18/19 17:24 127/74 06/18/19 16:00 97.9 61 18 127/74 (91) 96 06/18/19 16:00 74 Intake and Output 06/18/19 06/19/19 19:00 07:00 Intake Total 300 ml Balance 300 ml Intake Oral 300 ml # Voids 5 2 Laboratory Tests 06/19/19 10:30: White Blood Count 15.8H, Red Blood Count 4.70, Hemoglobin 12.3, Hematocrit 36.9L , Mean Corpuscular Volume 79L, Mean Corpuscular Hemoglobin 26.1L, Mean Corpuscular Hemoglobin Concent 33.2, Red Cell Distribution Width 14.9H, Platelet Count 438, Mean Platelet Volume 5.5L, Neutrophils (%) (Auto) 72.0, Lymphocytes (%) (Auto) 19.0L, Monocytes (%) (Auto) 6.5, Eosinophils (%) (Auto) 1.5, Basophils (%) (Auto) 0.9, Sodium Level 141, Potassium Level 3.6, Chloride Level 104, Carbon Dioxide Level 26, Anion Gap 11, Blood Urea Nitrogen 50H, Creatinine 1.5H, Estimat Glomerular Filtration Rate 34.4, Glucose Level 212H, Calcium Level 8.3L Height (Feet): 5 Height (Inches): 9.00 Weight (Pounds): 227 Objective General: NAD, A&O x 4 HEENT: NCAT, EOMi, nares patent and no symmetrical, mucous membranes moist CV: Regular rate regular rhythm, no murmurs, rubs, or gallops Pulm: No wheezing, rhonchi, or rales, no conversational dyspnea or accessory muscle usage, on NC GI: Soft, nontender, nondistended, bowel sounds present Neuro: CN 2-12 grossly intact bilaterally, no focal signs. Ext: No lower extremity edema bilaterally Skin: no rashes lesions or ulcers Msk: Joints symmetrical in upper extremity and lower extremity bilaterally, no joint swelling. Lymph: No lymphadenopathy in upper extremity and lower extremity Frantz Jones M.D. Jun 19, 2019 14:11
--- NOTE | 2019-06-19 14:56 | Pulmonology Progress Note ---
Assessment/Plan Assessment/Plan Pulmonary Progress Note Problems: (1) COPD (chronic obstructive pulmonary disease) (2) Lobular pneumonia (3) Ground glass opacity present on imaging of lung (4) Bronchiectasis (5) Renal insufficiency Assessment/Plan ASSESSMENT: The patient is a 69-year-old female with a history of COPD, former smoker, hypertension, GERD, diabetes, and hypothyroidism presenting with shortness of breath, noted to have COPD exacerbation, possible left lower lobe pneumonia. Possible LLL mass on CT chest Less SOB PROBLEM LIST: 1. COPD with acute exacerbation - improving, elevated WCC associated with steroids 2. LLL confluent opacity, scarring in the setting of bxtsis vs PNA vs neoplasm 3. RUL GGO 4. Elevated D-dimer S/P neg duplex and LP VQ 5. Acute kidney injury 7. GERD. 8. Hypothyroidism. 9. Anxiety. 10. Anemia. TREATMENT PLAN: 1. Optimize pulmonary hygiene/mobilize as tolerated. 2. Titrate down FiO2 to keep saturations greater than 90%. 3. The patient may use her own Trelegy and Perforomist in the hospital. 4. Solu-Medrol wean 5. Vugee-ptw-qblwq and p.r.n. DuoNebs. 6. IVAB: Zosyn and azithromycin 7. Monitor volumes and renal function, cautious hydration as needed. 8. DVT prophylaxis with heparin subcutaneous. 9. Continue to encourage abstinence from tobacco use. 10. Patient's primary mailmaster, Dr. Shubham Jasmine will follow up post discharge, will have a PET/CT @ [facility] and based on findings may or may not need a lung biopsy Subjective Allergies: Coded Allergies: No Known Allergies (Verified , 04/13/08) Subjective AFVSS, VQ LP CT with confluent LLL opacity with central bxtsis and PRUDENCE GGO + cystic/emphysematous changes + SOB + cough no FC no CP slightly improved Objective Vital Signs Noted General Appearance: WD/WN, no acute distress HEENT: normocephalic, atraumatic, anicteric, mucous membranes moist Respiratory/Chest: rhonchi Cardiovascular: normal peripheral pulses, normal rate, regular rhythm Abdomen: normal bowel sounds, soft, non tender, no organomegaly, non distended , no mass Extremities: no cyanosis, no clubbing, no edema Laboratory Tests Noted Subjective ROS Limited/Unobtainable: No Allergies: Coded Allergies: No Known Allergies (Verified , 04/13/08) Objective Last 24 Hour Vital Signs Date Time Temp Pulse Resp B/P (MAP) Pulse Ox O2 Delivery O2 Flow Rate FiO2 06/19/19 12:06 133/79 06/19/19 12:00 98.2 64 20 133/79 (97) 96 06/19/19 12:00 57 06/19/19 09:13 66 119/68 06/19/19 09:12 119/68 06/19/19 09:00 Nasal Cannula 2.0 06/19/19 08:00 97.3 66 20 119/68 (85) 98 06/19/19 08:00 70 06/19/19 05:15 135/78 06/19/19 05:11 50 06/19/19 04:00 97.1 58 16 135/78 (97) 98 06/19/19 01:03 151/78 06/19/19 00:00 53 06/19/19 00:00 98.0 57 18 151/78 (102) 97 06/18/19 21:00 Nasal Cannula 2.0 06/18/19 20:00 57 06/18/19 20:00 97.5 57 18 159/71 (100) 95 06/18/19 17:24 127/74 06/18/19 16:00 97.9 61 18 127/74 (91) 96 06/18/19 16:00 74 Intake and Output 06/18/19 06/19/19 19:00 07:00 Intake Total 300 ml Balance 300 ml Intake Oral 300 ml # Voids 5 2 Laboratory Tests 06/19/19 10:30: White Blood Count 15.8H, Red Blood Count 4.70, Hemoglobin 12.3, Hematocrit 36.9L , Mean Corpuscular Volume 79L, Mean Corpuscular Hemoglobin 26.1L, Mean Corpuscular Hemoglobin Concent 33.2, Red Cell Distribution Width 14.9H, Platelet Count 438, Mean Platelet Volume 5.5L, Neutrophils (%) (Auto) 72.0, Lymphocytes (%) (Auto) 19.0L, Monocytes (%) (Auto) 6.5, Eosinophils (%) (Auto) 1.5, Basophils (%) (Auto) 0.9, Sodium Level 141, Potassium Level 3.6, Chloride Level 104, Carbon Dioxide Level 26, Anion Gap 11, Blood Urea Nitrogen 50H, Creatinine 1.5H, Estimat Glomerular Filtration Rate 34.4, Glucose Level 212H, Calcium Level 8.3L Current Medications Medications (Trade) Dose Ordered Sig/Wesley Route PRN Reason Start Time Stop Time Status Last Admin Dose Admin Acetaminophen (Tylenol) 650 mg Q6H PRN ORAL Mild Pain/Temp > 100.5 06/12/19 16:30 07/12/19 16:29 06/12/19 16:39 Acetaminophen/ Hydrocodone Bitart ([place] 10/325) 1 tab Q4H PRN ORAL PAIN 4-10 06/12/19 16:30 06/19/19 16:29 06/13/19 23:41 Amlodipine Besylate (Norvasc) 10 mg DAILY ORAL 06/18/19 09:00 07/18/19 08:59 06/19/19 09:13 Dextrose (Dextrose 50%) 25 ml Q30M PRN IV Hypoglycemia 06/14/19 10:30 07/14/19 10:29 Dextrose (Dextrose 50%) 50 ml Q30M PRN IV Hypoglycemia 06/14/19 10:30 07/14/19 10:29 Enalaprilat (Vasotec) 2.5 mg EVERY 6 HOURS IV 06/13/19 00:00 07/13/19 00:00 06/19/19 12:06 Heparin Sodium (Porcine) (Heparin 5000 units/ml) 5,000 units EVERY 8 HOURS SUBQ 06/12/19 22:00 07/12/19 21:59 06/18/19 21:32 Hydralazine HCl (Apresoline) 10 mg Q8H PRN IV For High Blood Pressure 06/15/19 20:46 07/15/19 20:45 06/16/19 19:24 Insulin Aspart (NovoLOG) BEFORE MEALS AND HS SUBQ 06/14/19 12:30 07/14/19 12:29 06/19/19 12:07 Insulin Aspart (NovoLOG) 3 units NOVOTIAC SUBQ 06/15/19 11:50 07/15/19 11:49 06/19/19 12:08 Insulin Detemir (Levemir) 8 units Q24H SUBQ 06/13/19 18:00 07/13/19 17:59 06/18/19 17:26 Levothyroxine Sodium (Synthroid) 150 mcg ACBREAKFAST ORAL 06/13/19 06:30 07/13/19 06:29 06/19/19 05:27 Lorazepam (Ativan) 1 mg HSPRN PRN ORAL FOR ANXIETY/INSOMNIA 06/12/19 21:00 06/19/19 20:59 06/16/19 21:56 Losartan Potassium (Cozaar) 25 mg DAILY ORAL 06/13/19 09:00 07/13/19 08:59 06/19/19 09:12 Meloxicam (Mobic) 15 mg DAILY ORAL 06/13/19 09:00 07/13/19 08:59 06/19/19 09:13 Methylprednisolone Sodium Succinate (Solu-MEDROL) 40 mg DAILY IVP 06/19/19 09:00 07/13/19 00:00 06/19/19 09:13 Ondansetron HCl (Zofran) 4 mg Q6H PRN IVP Nausea & Vomiting 06/12/19 16:30 07/12/19 16:29 06/12/19 16:38 Pantoprazole (Protonix) 40 mg DAILY@0630 ORAL 06/13/19 06:30 07/13/19 06:29 06/19/19 05:27 Piperacillin Sod/ Tazobactam Sod 3.375 gm/Sodium Chloride 110 ml @ 27.5 mls/hr EVERY 8 HOURS IVPB 06/12/19 22:00 06/22/19 17:59 06/19/19 13:57 Quetiapine Fumarate (SEROqueL) 25 mg BEDTIME ORAL 06/17/19 21:00 07/17/19 20:59 06/18/19 21:28 Trazodone HCl (Desyrel) 600 mg BEDTIME ORAL 06/13/19 21:00 07/13/19 20:59 06/18/19 21:27 Darvin Austin MD Jun 19, 2019 14:56
[2019-06-19 16:00] VITALS: BP 145/74
[2019-06-19] MEDS: Levemir Flexpen SUBQ SCH (17:25)
[2019-06-19 20:00] VITALS: BP 123/61
--- NOTE | 2019-06-19 20:00 | NUR ---
NURSE NOTES: RECEIVED PATIENT LYING IN BED, AWAKE, ALERT/ORIENTED X4, VERBALLY RESPONSIVE, DENIES PAIN. NO SIGNS AND SYMPTOMS OF ACUTE CARDIO RESPIRATORY DISTRESS/SHORTNESS OF BREATH, DENIES CHEST PAIN, LUNGS CLEAR TO AUSCULTATION, NO WHEEZING/RALES. CONTINUE ON ORTHOTIC/PROSTHETIC CLINICIAN. IV INTACT TO LEFT FOREARM/GAUGE 24, NO REDNESS/SWELLING NOTED. ABDOMEN SOFT/NON DISTENDED, NO N/V/D. SIDE RAILS UP X2 FOR MOBILITY, BED IN LOWEST POSITION FOR SAFETY. ENCOURAGED PATIENT TO UTILIZE CALL LIGHT FOR ASSISTANCE, VERBALIZED UNDERSTANDING. CONTINUE WITH CURRENT PLAN OF CARE. NAD.
--- NOTE | 2019-06-19 20:30 | NUR ---
NURSE NOTES: AMBULATED AROUND UNIT WITHOUT ASSISTIVE DEVICES, RETURNED TO BED SAFELY; 02 SAT 98%, DENIES SOB.
[2019-06-19] MEDS: TraZODone 100mg tab ORAL SCH (21:03)
[2019-06-20] VITALS: BP 131/76
[2019-06-20] MEDS: Enalaprilat 2.5mg/2ml Inj IV SCH ×4 (00:29→11:55)
[2019-06-20 04:00] VITALS: BP 145/82
[2019-06-20] MEDS: Piperacillin/Tazobactam 3.375 GM in NS 110 ML IVPB SCH ×2 (05:38→14:19)
[2019-06-20] MEDS: Heparin 5000 units/ml inj SUBQ SCH ×2 (06:00→14:00)
[2019-06-20] MEDS: NovoLOG Insulin Flexpen SUBQ SCH ×4 (06:30→11:56)
--- NOTE | 2019-06-20 07:38 | NUR ---
NURSE NOTES: Nurse report given by JUAN Hurst. Patient's awake and eating breakfast in bed, high elena position, breathing regular and unlabored, eyes open spontaneously, no sign of choking. IV is running medication, no s/s of infiltration or tenderness. Bed low and locked, call light within reach, side rails x 2, bed alarm is armed, laboratory monitor is on. WIll continue to monitor.
--- NOTE | 2019-06-20 07:38 | NUR ---
HAND-OFF: Report given to RODGER ROBERTS.
[2019-06-20 07:46] LABS: BASOPHILS % (AUTO) 1.7 % (0.0-2.0); EOSINOPHILS % (AUTO) 1.6 % (0.0-3.0); HEMATOCRIT 36.1 % (37.0-47.0); HEMOGLOBIN 12.6 G/DL (12.0-16.0); LYMPHOCYTES % (AUTO) 23.7 % (20.0-45.0); MEAN CORPUSCULAR VOLUME 77 FL (80-99); MONOCYTES % (AUTO) 7.4 % (1.0-10.0); NEUTROPHILS % (AUTO) 65.6 % (45.0-75.0); PLATELET COUNT 409 K/UL (150-450); RED BLOOD COUNT 4.66 M/UL (4.20-5.40); RED CELL DISTRIBUTION WIDTH 13.5 % (11.6-14.8); WHITE BLOOD COUNT 17.1 K/UL (4.8-10.8)
[2019-06-20 08:00] VITALS: BP 100/53
[2019-06-20 08:08] LABS: ANION GAP 10 mmol/L (5-15); BLOOD UREA NITROGEN 45 mg/dL (7-18); CALCIUM 8.9 MG/DL (8.5-10.1); CARBON DIOXIDE 26 MMOL/L (21-32); CHLORIDE 104 MMOL/L (98-107); CREATININE 1.2 MG/DL (0.55-1.30); SODIUM 140 MMOL/L (136-145)
[2019-06-20] MEDS: Losartan 25mg tab ORAL SCH (09:00)
[2019-06-20] MEDS ORDERED: Solu-MEDROL 40mg Inj IVP SCH (09:00)
[2019-06-20] MEDS: Meloxicam 15 MG TAB ORAL SCH (09:04)
--- NOTE | 2019-06-20 10:10 | NUR ---
PT EVALUATION/DISCHARGE NOTE Patient seen for initial evaluation. Patient demonstrates independence with bed mobility, transfers and ambulation without an assistive device. Gait is steady, stable with good balance. Skilled inpatient PT intervention not warranted as patient is independent with all functional mobility. Patient discharged from PT, Treasure SOARES notified. Addendum: 06/20/19 at 1033 by HUI NAM PT Amended: Links added.
[2019-06-20 12:00] VITALS: BP 146/74
[2019-06-20] MEDS ORDERED: PREDNISONE10 MG ORAL (12:21)
--- NOTE | 2019-06-20 12:26 | Discharge Summary ---
Discharge Summary Hospital Course Date of Admission Jun 12, 2019 at 13:29 Date of Discharge 06/20/19 Admitting Diagnosis Sepsis HPI Bre Reilly is a 69 year old female who was admitted on Jun 12, 2019 at 13:29 for Pneumonia And Uti Consultations Pulm Hospital Course 69 y/o F w/PMH COPD, former smoker, hypertension, GERD, diabetes, obesity and hypothyroidism presenting with shortness of breath, noted to have COPD exacerbation, possible left lower lobe pneumonia. Possible LLL mass on CT chest. Seen by Pulmonology, treated with IV antibiotics, Solu-Medrol, inhaled bronchodilators with improvement in resp status, cleared for discharge home today. Discharge diagnoses and detailed hospital course below #Acute hypoxic respiratory failure secondary to HAP and COPD exacerbation- improving #Sepsis secondary to hospital-acquired pneumonia - improved #COPD exacerbation #Recurrent COPD exacerbation #perihilar infiltrate (persistent on CXR from 04/2019) #leukocytosis 2/ steroids -Troponins negative -Blood Cultures x2: NGTD -Urine Legionella negative -D-dimer: Elevated. VQ scan: low probability. No need for further imaging per pulmonology. No PE -CT chest non-contrast today: LLL mass, possible neoplasm vs. consolidation -Extensive discussion with patient informing her of the findings and plan of care. 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 No need for inpatient workup per Pulm. Patient will make an appointment to follow-up on CT scan results. -TTE: EF 55-60%. Normal -S/p Vancomycin per pharmacy on 06/15/19 -s/p azithromycin 06/15-06/18 #Diabetes mellitus type 2 SSI, average, Accuchecks Hypoglycemia protocol #Essential hypertension -held home Thiazide as can cause dehydration -Continue losartan 25mg Po daily -Cont. amlodipine 10mg Po daily #Acute renal failure suspected secondary to dehydration- Resolved -s/p IV fluids -Continue to avoid nephrotoxins -monitor Cr #Electrolyte abnormalities secondary to dehydration #Hypovolemic hyponatremia- Resolved -Continue to trend sodium #Microcytic anemia, history of being on chronic steroids -No signs of bleeding, Continue to monitor -Stool occult blood negative -Informed Patient of anemia and need to follow-up with PCP for further workup. Patient will make appointment within one week. # LLL mass, possible neoplasm or consolidation -found on CT chest -extensive discussion w/pt regarding findings -Pulmonology discussed findings with patient's cloth finisher who will follow up on the CT results and mass/consolidation as an outpatient. -No need for inpatient workup per Pulm. Patient will make an appointment to follow-up on CT scan results. -pt to f/u o/p w/ Pulm Discharge Medications New Medications: Prednisone* (Prednisone*) 10 Mg Tablet 30 MG ORAL DAILY, #10 TAB 0 Refills Continued Medications: Albuterol Sulfate (Albuterol Sulfate) 0.63 Mg/3 Ml Vial.neb 0.63 MG HHN BIDAC, VIAL Cranberry Extract (Ellura) 200 Mg Capsule 200 MG PO for , CAP (This prescription has been renewed) Formoterol Fumarate (Perforomist) 20 Mcg/2 Ml Vial.neb 20 MCG IH BID for COPD, VIAL (This prescription has been renewed) Levothyroxine Sodium* (Levothyroxine Sodium*) 150 Mcg Tablet 150 MCG ORAL DAILY, TAB Take in the morning on an empty stomach, at least 30 minutes before food. Lorazepam* (Lorazepam*) 2 Mg Tablet 2 MG ORAL BEDTIME, TAB Losartan Potassium* (Losartan Potassium*) 25 Mg Tablet 25 MG ORAL DAILY, TAB Magnesium Amino Acid Chelate (Magnesium) 100 Mg Tablet 200 MG PO for , TAB (This prescription has been renewed) Melatonin (Melatonin) 10 Mg Capsule 10 MG ORAL BEDTIME PRN for Insomnia, TAB (This prescription has been renewed) Meloxicam* (Meloxicam*) 15 Mg Tablet 15 MG PO DAILY for , TAB (This prescription has been renewed) Metformin HCl (Metformin ER Gastric) 500 Mg Sdihoyx02g 500 MG PO BID for dm, TAB (This prescription has been renewed) Omeprazole (Omeprazole) 40 Mg Capsule.dr 40 MG ORAL DAILY, CAP Trazodone Hcl* (Desyrel*) 100 Mg Tablet 600 MG ORAL BEDTIME for DEPRESSION, TAB (This prescription has been renewed) Triamterene/Hydrochlorothiazid (Triamterene-Hctz 37.5-25 Mg Cp) 1 Each Capsule 1 CAP ORAL Q12HR for HYPERTENSION, CAP Discharge Condition Upon Discharge: improving Discharge Vital Signs Last Vital Signs Date Time Temp Pulse Resp B/P (MAP) Pulse Ox O2 Delivery O2 Flow Rate FiO2 06/20/19 11:55 146/74 2/24/20 09:00 63 06/20/19 09:00 Nasal Cannula 2.0 06/20/19 08:00 98.1 18 97 06/18/19 09:33 28 Discharge Disposition Patient was discharged to home with home health Discharge Diagnoses: (1) COPD (chronic obstructive pulmonary disease) (2) Bronchiectasis (3) Ground glass opacity present on imaging of lung (4) Sepsis (5) Renal insufficiency (6) Hyponatremia (7) Hypertension (8) Diabetes Billy Vick MD Jun 20, 2019 12:26
--- NOTE | 2019-06-20 14:41 | NUR ---
DISCHARGE PLANNING: PATIENT HAS BEEN ACCEPTED TO [facility] T:[phone] F:[phone] PATIENT IS DISCHARGED
--- NOTE | 2019-06-20 14:46 | NUR ---
CASE MANAGEMENT: REVIEW 06/20/19 SI: ELEVATED D-DIMER ACUTE HYPOXIA RESP FAILURE . SEPSIS . PNA . UTI . COPD EXACERBATION . LEFT PLEURAL EFFUSION 97.7 59 18 146/74 95% NC/2L WBC 17.1 BUN 45 IS: IV NS 50ML/HR IV ZOSYN Q8HR X30 BAGS IV VASOTEC QID HYDRALAZINE Q8HR/PRN MOBIC PO QD PROTONIX PO QD DESYREL PO QHS SEROQUEL PO QHS NOVOLOG SQ AC&HS LEVEMIR SQ Q24HR PROTONIX PO QD ALBUTEROL HHN BID \: 2E TELEMETRY UNIT DCP: PATIENT IS FROM HOME PLAN: DC HOME WITH HOME HEALTH - patient's primary research programmer, Dr. Shubham Jasmine ---> she will follow up with him post discharge, will have a PET/CT @ [facility] and based on findings may or may not need a lung biopsy
[2019-06-20 16:00] VITALS: BP 125/75
--- NOTE | 2019-06-20 16:15 | NUR ---
NURSE NOTES: Patient's discharged per MD order. Patient's in stable condition, ambulates without assist, AO x 4, denies pain, denies chest pain, breathing unlabored. Patient's belonging list and discharge documents went over with patient and signed by patient and nurse at bedside. Patient aware to make a follow up appointment with her primary physician within 1 week. draw in hand removed, IV removed and ID band discarded properly. Patient's daughter picked patient up to go home. Patient's off the floor at 1615. Charge nurseLandon and piano technician aware.
--- NOTE | 2019-06-20 18:09 | Pulmonology Progress Note ---
Assessment/Plan Assessment/Plan Pulmonary Progress Note Problems: (1) COPD (chronic obstructive pulmonary disease) (2) Lobular pneumonia (3) Ground glass opacity present on imaging of lung (4) Bronchiectasis (5) Renal insufficiency Assessment/Plan ASSESSMENT: The patient is a 69-year-old female with a history of COPD, former smoker, hypertension, GERD, diabetes, and hypothyroidism presenting with shortness of breath, noted to have COPD exacerbation, possible left lower lobe pneumonia. Possible LLL mass on CT chest Less SOB, not on O2, on ambulation no O2 desaturation PROBLEM LIST: 1. COPD with acute exacerbation - improving, elevated WCC associated with steroids 2. LLL confluent opacity, scarring in the setting of bxtsis vs PNA vs neoplasm 3. RUL GGO 4. Elevated D-dimer S/P neg duplex and LP VQ 5. Acute kidney injury 7. GERD. 8. Hypothyroidism. 9. Anxiety. 10. Anemia. TREATMENT PLAN: 1. Optimize pulmonary hygiene/mobilize as tolerated. 2. Titrate down FiO2 to keep saturations greater than 90%. 3. The patient may use her own Trelegy and Perforomist in the hospital. 4. Medrol dose pack 5. HHN 6. AB 7. Monitor volumes and renal function, cautious hydration as needed. 8. DVT prophylaxis with heparin subcutaneous. 9. Continue to encourage abstinence from tobacco use. 10. Patient's primary rn long term care, Dr. Shubham Jasmine will follow up post discharge, will have a PET/CT @ [facility] and based on findings may or may not need a lung biopsy Subjective Allergies: Coded Allergies: No Known Allergies (Verified , 04/13/08) Subjective AFVSS, VQ LP CT with confluent LLL opacity with central bxtsis and PRUDENCE GGO + cystic/emphysematous changes + SOB + cough no FC no CP slightly improved Objective Vital Signs Noted General Appearance: WD/WN, no acute distress HEENT: normocephalic, atraumatic, anicteric, mucous membranes moist Respiratory/Chest: rhonchi Cardiovascular: normal peripheral pulses, normal rate, regular rhythm Abdomen: normal bowel sounds, soft, non tender, no organomegaly, non distended , no mass Extremities: no cyanosis, no clubbing, no edema Laboratory Tests Noted Subjective ROS Limited/Unobtainable: No Allergies: Coded Allergies: No Known Allergies (Verified , 04/13/08) Objective Last 24 Hour Vital Signs Date Time Temp Pulse Resp B/P (MAP) Pulse Ox O2 Delivery O2 Flow Rate FiO2 06/20/19 16:00 97.7 65 18 125/75 (92) 98 06/20/19 12:00 60 06/20/19 12:00 97.7 59 18 146/74 (98) 95 06/20/19 11:55 146/74 06/20/19 09:00 63 100/53 06/20/19 09:00 100/53 06/20/19 09:00 Nasal Cannula 2.0 06/20/19 08:00 69 06/20/19 08:00 98.1 63 18 100/53 (69) 97 06/20/19 05:48 145/82 06/20/19 04:00 97.0 60 18 145/82 (103) 95 06/20/19 04:00 51 06/20/19 02:58 57 06/20/19 00:29 131/76 06/20/19 00:00 96.8 60 18 131/76 (94) 96 06/19/19 21:00 Nasal Cannula 2.0 06/19/19 20:00 108 06/19/19 20:00 97.3 67 18 123/61 (81) 97 Intake and Output 06/19/19 06/20/19 19:00 07:00 Intake Total 800 ml 617.5 ml Balance 800 ml 617.5 ml Intake Oral 800 ml 480 ml IV Total 137.5 ml # Voids 3 3 Laboratory Tests 06/20/19 07:20: White Blood Count 17.1H, Red Blood Count 4.66, Hemoglobin 12.6, Hematocrit 36.1L , Mean Corpuscular Volume 77L, Mean Corpuscular Hemoglobin 27.1, Mean Corpuscular Hemoglobin Concent 35.0, Red Cell Distribution Width 13.5, Platelet Count 409, Mean Platelet Volume 4.7L, Neutrophils (%) (Auto) 65.6, Lymphocytes ( %) (Auto) 23.7, Monocytes (%) (Auto) 7.4, Eosinophils (%) (Auto) 1.6, Basophils (%) (Auto) 1.7, Sodium Level 140, Potassium Level 4.0, Chloride Level 104, Carbon Dioxide Level 26, Anion Gap 10, Blood Urea Nitrogen 45H, Creatinine 1.2, Estimat Glomerular Filtration Rate 44.4, Glucose Level 113#H, Calcium Level 8.9 Darvin Austin MD Jun 20, 2019 18:09
--- NOTE | 2019-06-22 04:15 | Progress Note ---
DATE: 06/20/2019 SUBJECTIVE: The patient is calm, cooperative. No behavior issues noted. Depressed, anhedonia, worthlessness, hopelessness. MENTAL STATUS EXAMINATION: Alert, oriented times self, place, and situation. Mood is depressed. Affect is constricted, congruent with mood. Thought process is linear. Thought content, no suicidal or homicidal ideation. ASSESSMENT: Stable. PLAN: 1. Provide the patient with reality orientation. 2. Supportive therapy. 3. Continue current medications. Eulalia Reza M.D. DR: ANITHA JOB#: [id number] CC:
== END 2019-06-20 16:25 | disposition home health service (06) | DRG 871 ==
LOC: EMR 11:24 → EDBEDREQ 13:19 → 2E 13:29
DX: A41.9 Sepsis, unspecified organism (principal); J96.01 Acute respiratory failure with hypoxia; J18.1 Lobar pneumonia, unspecified organism; E87.1 Hypo-osmolality and hyponatremia; J44.1 Chronic obstructive pulmonary disease with (acute) exacerbation; N17.9 Acute kidney failure, unspecified; J44.0 Chronic obstructive pulmonary disease with (acute) lower respiratory infection; E86.0 Dehydration; F32.9 Major depressive disorder, single episode, unspecified; D64.9 Anemia, unspecified; F41.9 Anxiety disorder, unspecified; I10 Essential (primary) hypertension; E11.9 Type 2 diabetes mellitus without complications; K21.9 Gastro-esophageal reflux disease without esophagitis
CPT/HCPCS: 36415; 71045; 71250; 78579; 78580; 80048; 80053; 80202; 81003; 82164; 82270; 82728; 82962; 83540; 83550; 83605; 83735; 83880; 84100; 84443; 84484; 85007; 85025; 85379; 85610; 85730; 86710; 87040; 87081; 93005; 93306; 93970; 94640; 96361; 96365; 96366; 96367; 96368; 96375; 96376; 99291; A9503; J1815; J2405; J7030; S5561